=== PATIENT | male | born 1975 | race Caucasian/White ===

== ENCOUNTER 2019-03-05 20:00 | Inpatient (IN) ==
[2019-03-06] MEDS ORDERED: Naloxone 0.4 MG/ML INJ IVP PRN (00:10)
[2019-03-06] MEDS ORDERED: D5% in Water 1,000 ML IVC PRN (00:15)
[2019-03-06] MEDS ORDERED: *HR* Dextrose 50 % in Water (Syg) 50 ML SYRINGE IVP PRN (00:15)
[2019-03-06] MEDS ORDERED: Dextrose Gel 15 GM/37.5 ML TUBE PO PRN ×2 (00:15)
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
[2019-03-06 00:48] LABS: Hematocrit 46.3 % (37.5-50.1); Hemoglobin 13.6 g/dL (12.9-16.9); Mean Corpuscular HGB Conc 29.4 g/dL (31.6-35.5); Mean Corpuscular Hemoglobin 30.5 pg (28.0-33.3); Mean Corpuscular Volume 103.8 fL (83.0-100.0); Mean Platelet Volume 10.5 fL (9.4-12.4); Platelet Count 195 K/mcL (140-400); Red Blood Count 4.46 M/mcL (4.19-5.50); Red Cell Distribution Width 14.9 % (11.5-14.5); White Blood Count 10.8 K/mcL (4.3-11.1)
[2019-03-06 01:00] LABS: INR 1.2; Prothrombin Time 13.2 Seconds (9.4-12.1)
[2019-03-06 01:11] LABS: Alanine Aminotransferase 12 Units/L (7-52); Albumin 3.2 g/dL (3.5-5.7); Albumin/Globulin Ratio 1.1 (1.1-2.2); Alkaline Phosphatase 73 Units/L (34-104); Aspartate Amino Transferase 12 Units/L (13-39); BUN/Creatinine Ratio 14 (6-26); Bilirubin,Total 0.4 mg/dL (0.3-1.0); Blood Urea Nitrogen 13 mg/dL (6-20); Calcium 8.4 mg/dL (8.6-10.3); Carbon Dioxide 41 mEq/L (23-29); Chloride 93 mEq/L (98-107); Globulin 2.9 g/dL (2.4-3.5); Glucose 226 mg/dL (70-105); Magnesium 1.9 mg/dL (1.6-2.6); Osmolality,Calculated 293 (280-300); Potassium 3.7 mEq/L (3.5-5.1); Sodium 138 mEq/L (136-145); Total Protein 6.1 g/dL (6.4-8.9); eGFR For African Americans > 60 (> 60); eGFR For Non-African Americans > 60 (> 60)
[2019-03-06] MEDS: *HR* Digoxin 0.5 MG/2 ML AMPUL IVP SCH ×2 (02:52→09:13)
[2019-03-06] MEDS: Nicotine 21 MG PATCH.TD24 TD SCH (07:06)
[2019-03-06] MEDS ORDERED: Perflutren Lipid Microsphere 1.3 ML in 0.9 % Sodium Chloride 8.7 ML IVP ONE (07:16)
[2019-03-06] MEDS ORDERED: Furosemide 40 MG/4 ML VIAL IVP SCH (08:00)
[2019-03-06] MEDS ORDERED: Amiodarone Premix 150 MG/100 ML BAG IVPB ONE (08:58)
[2019-03-06] MEDS ORDERED: Amiodarone Premix 360 MG/200 ML BAG IVC ONE (08:58)
[2019-03-06] MEDS ORDERED: Insulin DETEMIR 100 UNIT/ML X5UNITS SQ SCH (09:00)
[2019-03-06] MEDS: Apixaban 5 MG TABLET PO SCH ×2 (09:17→21:40)
[2019-03-06] MEDS: Gabapentin 400 MG CAPSULE PO SCH ×4 (09:17→21:40)
[2019-03-06] MEDS: Insulin LISPRO 300 UNITS/3 ML VIAL SQ SCH ×7 (09:18→21:38)
[2019-03-06] MEDS: Loratadine 10 MG TABLET PO SCH (09:18)
[2019-03-06] MEDS: Magnesium Oxide 400 MG TABLET PO SCH ×3 (09:18→21:40)
--- NOTE | 2019-03-06 09:22 | Internal Med Progress Note ---
Hospitalist Progress Note - Encounter Date of Encounter: 03/06/19 Time of Encounter: 09:19 - Subjective Interval History: I have seen and evaluated the patient at bedside. Patient reported increase productive cough of yellowish sputum, denies chest pain, nausea, vomiting or abdominal pain. - Exam Vitals: Temp Pulse Resp BP Pulse Ox 98.5 F 132 20 91/57 91 03/06/19 07:36 03/06/19 07:36 03/06/19 07:36 03/06/19 07:36 03/06/19 07:36 Exam: Vitals: Reviewed General: Morbidly obese, Alert and oriented x4. In mild distress due to shortness of breath Cardiovascular: Irregularly, irregular, normal S1 & S2, no rubs, murmurs or gallops. Lungs: minimal expiratory wheezes at the bases b/l, and minimal crackles, no rales. Abdomen: Obese, soft, non-tender, no rigidity. Extremities: 2+ edema in the lower extr b/l Neurological: Normal cognition and motor skills. Rest of the physical exam is non contributory - Assessment and Plan (1) Atrial flutter with rapid ventricular response Current Visit: Yes Status: Acute Assessment and Plan: patient with A.fib with RvR, BP running in the low 90s. dc cardizem drip started on amiodarone drip titrate per protocol on apixaban for secondary stroke prevention, and Hx of DVT. Cardiology recommendations appreciated on metoprolol 50mg/PO Q6HRs on magnessium replacement (2) CHF exacerbation Current Visit: Yes Status: Acute Assessment and Plan: patient with 2+ pitting edema and crackles at the lung bases b/l. Plan: fluids restriction to 1.5 litters a day decrease furosemide to 40mg/IV daily as BP is running in the low 90s. on a bb. daily weight and strict intake and output. (3) Diabetes Current Visit: Yes Status: Chronic Assessment and Plan: blood sugar sub-optimally controlled. started on levemir 10 units Subq BID, and lispro 4 units ac, plus high dose lispro sliding scale ac. carbs controlled diet. (4) History of DVT in adulthood Current Visit: Yes Status: Chronic Assessment and Plan: On apixaban 5mg/PO BID (5) Hypertension Current Visit: Yes Status: Chronic Assessment and Plan: BP running in the low 90s. medications adjusted for better rate control, this should improve BP. will continue monitoring (6) Hyperlipidemia Current Visit: Yes Status: Chronic Assessment and Plan: Patient is on atorvastatin 80 mg by mouth at bedtime. (7) GERD (gastroesophageal reflux disease) Current Visit: Yes Status: Chronic Assessment and Plan: On omeprazole 20 mg by mouth. (8) Tracheostomy in place Current Visit: Yes Status: Chronic (9) COPD exacerbation Current Visit: Yes Status: Acute Assessment and Plan: Patient reported increased sputum production. and hypoxemia. Plan: started on bronchodilators Q4RT PRN for shortness of breath/wheezing spurum culture ordered started on methyl-prednisolone 40mg/IV BID, plus empiric antibiotics. will start on Augmentin, and change to a macrolides or quinolones when the HR is better controlled. ABG ordered. DVT Prophylaxis: patient on an oral anticoagulant. no mechanical dvt prophylaxis due to Hx of DVT - Summary of Assessment and Plan Summary of Assessment and Plan: Patient to remain in the hospital due to A.fib with RVR on an amiodarone drip. - Time Spent with Patient Total time spent is greater than 50% in coordination of care (as documented) at patient's floor/unit and/or counseling patient: Greater than 35 minutes (45) Plan of Care Discussed with: patient (and the nurse.) Internal Medicine: Result - Labs CBC & Chem 7: 03/06/19 00:33 03/06/19 00:33 Labs: Short CBC 03/06/19 Range/Units 00:33 WBC 10.8 (4.3-11.1) K/mcL Hgb 13.6 (12.9-16.9) g/dL Hct 46.3 (37.5-50.1) % Plt Count 195 (140-400) K/mcL BMP 03/06/19 00:33 Sodium 138 Potassium 3.7 Chloride 93 L Carbon Dioxide 41 H* BUN 13 Creatinine 0.92 Glucose 226 H Calcium 8.4 L Cardiac Enzymes 03/06/19 03/06/19 Range/Units 00:33 04:17 Troponin I < 0.03 < 0.03 (< 0.04) ng/mL Liver Function 03/06/19 Range/Units 00:33 Total Bilirubin 0.4 (0.3-1.0) mg/dL AST 12 L (13-39) Units/L ALT 12 (7-52) Units/L Alkaline Phosphatase 73 (34-104) Units/L Albumin 3.2 L (3.5-5.7) g/dL - ABG Interpretation ABG results: PT/INR, D-dimer PT 13.2 Seconds (9.4-12.1) H 03/06/19 00:33 - Impressions Impressions Chest X-Ray 03/06/19 00:13 IMPRESSION: 1. Tracheostomy tube with the tip at the level of the clavicles. 2. Enlarged cardiac silhouette with prominence of the pulmonary vasculature. 3. Minimal bilateral opacification, which may represent pulmonary edema. D/ / Willie Dickson MD / Willie Dickson MD Interpreting Provider: Willie Dickson MD Consult Discharge Plan - Plan Referrals: NONE,PCP [Primary Care Provider] - (2) CHF exacerbation Qualifiers: Heart failure type: unspecified Qualified Code(s): I50.9 - Heart failure, unspecified (3) Diabetes Qualifiers: Diabetes mellitus type: type 2 Diabetes mellitus prison insulin use: with prison use Diabetes mellitus complication status: without complication Qualified Code(s): E11.9 - Type 2 diabetes mellitus without complications; Z79.4 - group home (current) use of insulin (5) Hypertension Qualifiers: Hypertension type: essential hypertension Qualified Code(s): I10 - Essential (primary) hypertension (6) Hyperlipidemia Qualifiers: Hyperlipidemia type: unspecified Qualified Code(s): E78.5 - Hyperlipidemia, unspecified (7) GERD (gastroesophageal reflux disease) Qualifiers: Esophagitis presence: esophagitis presence not specified Qualified Code(s): K21.9 - Gastro-esophageal reflux disease without esophagitis
--- NOTE | 2019-03-06 10:11 | Cardiology Consult Note ---
Date of Encounter: 03/06/19 Time of Encounter: 10:08 Assessment and Plan (1) Atrial flutter with rapid ventricular response Current Visit: Yes Status: Acute On eliquis for stroke risk reduction, cannot tolerate rate controlling medications due to labile blood pressure. We will start amiodarone as patient is compliant on eliquis for the last few months. Patient likely would benefit from BiPAP which likely is an aggravating factor for his A. fib RVR. Patient likely also benefit from EP follow-up and if continues to be in atrial flutter preferentially possible a flutter ablation Discussion w patient/family: The assessment and plan as outlined above was discussed with the patient and/or family members who expressed understanding and agreement. All questions were answered. Thank you for involving us in the care of your patient. Please call with any questions. History of Present Illness Consult date: 03/06/19 Chief complaint: A. fib RVR History of present illness: Mr. Alexandra is a 43 year old male with morbid obesity, COPD, diabetes, rest 20 failure in the past status post-trach placement presents with complaints of hypoxemia from home. Patient has likely severe sleep apnea without a BiPAP or CPAP machine at home. This may or may not be the culprit. On presentation patient was found to be in atrial flutter with RVR. He currently is on eliquis and has been compliant with his medications over the last few months. We will start amiodarone for chemical cardioversion due to labile blood pressure with rate controlling medications. Patient otherwise asymptomatic denies any chest pain, dyspnea on exertion above baseline, orthopnea, PND, presyncope or syncope Past Med Surg Social Fam HX - Past Medical History Medical history: atrial fibrillation, CHF, COPD, DVT, diabetes, GERD, hypertension Psychiatric history: depression - Past Surgical History Surgical History: tracheostomy - Social History Smoking Status: Heavy tobacco smoker Packs per day: 1 Smokeless Tobacco Status: No Alcohol use: none Drug use: none Medications and Allergies Apixaban [Eliquis] 5 mg PO BID 03/06/19 [History] Atorvastatin [Lipitor] 80 mg PO HS 03/06/19 [History] Escitalopram [Lexapro] 03/06/19 [History] Ferrous Sulfate [Iron] 325 mg PO 03/06/19 [History] Furosemide [Lasix] 20 mg PO DAILY 03/06/19 [History] Furosemide [Lasix] 40 mg PO DAILY 03/06/19 [History] Gabapentin [Neurontin] 800 mg PO QID 03/06/19 [History] Insulin Glargine,Hum.rec.anlog [Basaglar Kwikpen U-100] 60 unit SQ 03/06/19 [History] Insulin LISPRO [HumaLOG] 15 unit SQ TIDWM 03/06/19 [History] Loratadine [Allergy Relief] 10 mg PO DAILY 03/06/19 [History] Magnesium Oxide [Magnesium] 400 mg PO TID 03/06/19 [History] Metoprolol Tartrate [Lopressor] 50 PO 03/06/19 [History] Oxycodone HCl [Oxycontin] 10 mg PO 03/06/19 [History] Pantoprazole Sodium [Protonix] 40 mg PO DAILY 03/06/19 [History] diazePAM [Valium] 5 mg PO BID 03/06/19 [History] Allergy/AdvReac Type Severity Reaction Status Date / Time morphine Allergy Anaphylaxis Verified 03/06/19 03:42 All Systems Review: The remainder of the systems were reviewed and are negative Physical Examination Vital Signs, Last 4 Hours Temp Pulse Resp BP Pulse Ox 03/06/19 07:36 98.5 F 132 20 91/57 91 General: Conversant, No Apparent Distress HEENT: Atraumatic, Normocephaly, Mucus Membranes Moist Neck: No JVD, Normal carotid pulses Cardiac: Reg Rate and Rhythm, Normal S1 and S2, No Murmur Lungs: Normal Breath Sounds, No Wheeze, Rales, Rhonchi Neuro: Alert and responsive, No focal deficits noted Abdomen: Soft, Non-Tender Skin: No rashes noted on visualized skin Musculoskeletal: No Chest Wall Tenderness Extremities: No Clubbing, No Cyanosis, No Edema, Normal Pulses Results 03/06/19 00:33 03/06/19 00:33 Lab Results 03/06/19 03/06/19 03/06/19 00:33 00:33 00:33 WBC 10.8 Hgb 13.6 Hct 46.3 Plt Count 195 INR 1.2 Sodium 138 Potassium 3.7 Chloride 93 L Carbon Dioxide 41 H* BUN 13 Creatinine 0.92 Glucose 226 H Calcium 8.4 L Magnesium 1.9 Total Bilirubin 0.4 AST 12 L ALT 12 Alkaline Phosphatase 73 Troponin I 03/06/19 03/06/19 00:33 04:17 WBC Hgb Hct Plt Count INR Sodium Potassium Chloride Carbon Dioxide BUN Creatinine Glucose Calcium Magnesium Total Bilirubin AST ALT Alkaline Phosphatase Troponin I < 0.03 < 0.03 Consult Discharge Plan - Plan Referrals: NONE,PCP [Primary Care Provider] -
[2019-03-06 10:43] LABS: ABG Base Excess 11 mEq/L (-2 to 3); ABG HCO3 44 mEq/L (21-27); ABG Oxygen Saturation 90 % (95-98); ABG PCO2 99 mmHg (35-45); ABG PH 7.26 pH Units (7.32-7.45); ABG PO2 73 mmHg (85-104); ABG TCO2 47 mEq/L (20-26)
--- NOTE | 2019-03-06 11:18 | Pulmonology Consult Note ---
Date of Encounter: 03/06/19 Time of Encounter: 11:00 Assessment and Plan (1) Acute and chronic respiratory failure ([id number]) Current Visit: Yes Status: Acute Patient has tracheostomy and his shortness of breath is multifactorial I suspect primarily now from congestive heart failure with his chest x-ray evidence of pulmonary congestion, however he is history of smoking and COPD is complicating the whole condition. I have reviewed his ABG with evidence of primarily chronic respiratory failure with acidosis and he is not using ventilator and his hypoxia is worsen. I have explained to patient at least when he sleep he needs to be on a ventilator. Ideally obstructive sleep apnea gets treated with tracheostomy however with his obesity hypoventilation and congestive heart failure is not helping and intermittent ventilator during daytime and when he sleep is recommended. I have explained to the nurse and the respiratory therapist once patient agrees then his tracheostomy needs to be changed to a cuffed tracheostomy. Qualifiers: Respiratory failure complication: hypoxia and hypercapnia Qualified Code(s): J96.21 - Acute and chronic respiratory failure with hypoxia; J96.22 - Acute and chronic respiratory failure with hypercapnia (2) Tracheostomy dependent Current Visit: Yes Status: Chronic Advice patient when his discharge from the hospital to follow up with his physician who placed his trach and this has not been replaced for past 2 years according to the patient. (3) Obesity hypoventilation syndrome Current Visit: Yes Status: Chronic Ventilator will be helpful. (4) History of smoking Current Visit: Yes Status: Chronic Patient understand that smoking will make his condition worsen. (5) COPD exacerbation Current Visit: Yes Status: Suspected Patient is being treated appropriately with bronchodilators and systemic steroid with empiric antibiotic. History of Present Illness Consult date: 03/06/19 Requesting physician: Genny Maddox Reason for consult: dyspnea Chief complaint: Shortness of breath History of present illness: This is a 43-year-old male with multiple medical problems and he has chronic trach which has been placed about 2 years ago and he stated that has not been replaced since that time. Patient is not using vent at home and he is only on oxygen. His family stated that he was hypoxic on oxygen and that is why he was brought to the hospital and then admitted for A. fib RVR and congestive heart failure. Patient has history of COPD and history of smoking with history of congestive heart failure. Patient stated that he has not seen a plant maintenance technician and he does not know what specialty is the physician who placed his trach in. Patient denies any significant increase in the secretion from his trach and he does change saner cannula. Patient stated he noticed that he is more swollen with distended abdomen and also lower extremities edema. Patient overall stated he is compliant with his medication. Denies any hemoptysis and denies any significant wheezing. Past Med Surg Social Fam HX - Past Medical History Medical history: atrial fibrillation, CHF, COPD, DVT, diabetes, GERD, hypertension Psychiatric history: depression - Past Surgical History Surgical History: tracheostomy - Social History Smoking Status: Heavy tobacco smoker Packs per day: 1 Smokeless Tobacco Status: No Alcohol use: none Drug use: none Medications and Allergies Apixaban [Eliquis] 5 mg PO BID 03/06/19 [History] Atorvastatin Calcium [Lipitor] 80 mg PO HS 03/06/19 [History] Escitalopram [Lexapro] 10 mg PO DAILY 03/06/19 [History] Ferrous Sulfate [Iron] 325 mg PO BID 03/06/19 [History] Furosemide [Lasix] 20 mg PO DAILY PRN 03/06/19 [History] Furosemide [Lasix] 40 mg PO DAILY 03/06/19 [History] Gabapentin [Neurontin] 800 mg PO QID 03/06/19 [History] Insulin Glargine,Hum.rec.anlog [Basaglar Kwikpen U-100] 60 unit SQ HS 03/06/19 [History] Insulin LISPRO [HumaLOG] 15 unit SQ TIDWM 03/06/19 [History] Loratadine [Allergy Relief] 10 mg PO DAILY 03/06/19 [History] Magnesium Oxide [Magnesium] 400 mg PO TID 03/06/19 [History] Metoprolol Tartrate [Lopressor] 50 mg PO Q6H 03/06/19 [History] OxyCODONE Immed Rel [Roxicodone 10 MG] 10 mg PO BID PRN 03/06/19 [History] Pantoprazole Sodium [Protonix] 40 mg PO DAILY 03/06/19 [History] diazePAM [Valium] 5 mg PO BID PRN 03/06/19 [History] Allergy/AdvReac Type Severity Reaction Status Date / Time morphine Allergy Anaphylaxis Verified 03/06/19 10:09 All Systems: The remainder of the systems were reviewed and are negative Physical Examination Vital Signs: Vital Signs, Last 4 Hours Temp Pulse Resp BP Pulse Ox 03/06/19 07:36 98.5 F 132 20 91/57 91 General appearance: no acute distress Eyes: nonicteric ENT: oropharynx dry Neck: other (Trach in place) Effort: mildly labored Inspection: other (Obese) Auscultation: bilateral: diminished breath sounds Percussion: bilateral: not dull Cardiovascular: irregular rhythm Gastrointestinal: normoactive bowel sounds, non-distended Extremities: edema normal mental status, non-focal exam mood appropriate Results - Laboratory Findings CBC and BMP: 03/06/19 00:33 03/06/19 00:33 ABG ABG pH 7.26 pH Units (7.32-7.45) L 03/06/19 10:38 ABG pCO2 99 mmHg (35-45) H* 03/06/19 10:38 ABG pO2 73 mmHg (85-104) L 03/06/19 10:38 ABG O2 Saturation 90 % (95-98) L 03/06/19 10:38 PT/INR, D-dimer PT 13.2 Seconds (9.4-12.1) H 03/06/19 00:33 Abnormal lab findings: Abnormal lab results MCV 103.8 fL (83.0-100.0) H 03/06/19 00:33 MCHC 29.4 g/dL (31.6-35.5) L 03/06/19 00:33 RDW 14.9 % (11.5-14.5) H 03/06/19 00:33 PT 13.2 Seconds (9.4-12.1) H 03/06/19 00:33 ABG pH 7.26 pH Units (7.32-7.45) L 03/06/19 10:38 ABG pCO2 99 mmHg (35-45) H* 03/06/19 10:38 ABG pO2 73 mmHg (85-104) L 03/06/19 10:38 ABG HCO3 44 mEq/L (21-27) H 03/06/19 10:38 ABG Total CO2 47 mEq/L (20-26) H 03/06/19 10:38 ABG O2 Saturation 90 % (95-98) L 03/06/19 10:38 ABG Base Excess 11 mEq/L (-2 to 3) H 03/06/19 10:38 Chloride 93 mEq/L (98-107) L 03/06/19 00:33 Carbon Dioxide 41 mEq/L (23-29) H* 03/06/19 00:33 Glucose 226 mg/dL (70-105) H 03/06/19 00:33 POC Glucose 267 mg/dL (70-99) H 03/06/19 04:14 Calcium 8.4 mg/dL (8.6-10.3) L 03/06/19 00:33 AST 12 Units/L (13-39) L 03/06/19 00:33 Serum Total Protein 6.1 g/dL (6.4-8.9) L 03/06/19 00:33 Albumin 3.2 g/dL (3.5-5.7) L 03/06/19 00:33 - Diagnostic Findings CT scan - chest: report reviewed, image reviewed - Clinical Findings Intake & Output: Intake & Output 03/05/19 03/06/19 03/06/19 23:59 07:59 15:59 Intake Total 360 / 360 Balance 360 / 360 Weight 181.437 kg Consult Discharge Plan - Plan Referrals: NONE,PCP [Primary Care Provider] -
[2019-03-06 11:21] LABS: Estimated Average Glucose 240 mg/dl
[2019-03-06] MEDS: MethylPREDNISolone 40 MG/ML VIAL IVP SCH ×2 (11:23→18:02)
[2019-03-06] MEDS: Furosemide 40 MG/4 ML VIAL IVP SCH (11:23)
[2019-03-06] MEDS: diazePAM 5 MG TABLET PO SCH ×2 (11:24→21:40)
[2019-03-06] MEDS: *HR* OxyCODONE Immed Rel 5 MG TABLET PO PRN ×2 (14:33→21:42)
[2019-03-06] MEDS: Amiodarone Premix 360 MG/200 ML BAG IVC SCH (16:17)
[2019-03-06] MEDS ORDERED: NON-FORMULARY MEDICATION 1 EACH EACH (Insulin Glargine,Hum.Rec.Anlog [Basaglar Kwikpen U-1 SQ SCH (21:00)
[2019-03-06] MEDS: Insulin DETEMIR 100 UNIT/ML X5UNITS SQ SCH (21:40)
[2019-03-07] MEDS: Amiodarone Premix 360 MG/200 ML BAG IVC SCH ×2 (04:31→16:32)
[2019-03-07] MEDS: Levalbuterol Neb 0.63 MG/3 ML IH PRN (04:55)
[2019-03-07] MEDS: MethylPREDNISolone 40 MG/ML VIAL IVP SCH (06:39)
[2019-03-07] MEDS: Insulin LISPRO 300 UNITS/3 ML VIAL SQ SCH ×7 (07:55→21:09)
[2019-03-07] MEDS: Magnesium Oxide 400 MG TABLET PO SCH ×3 (07:58→21:13)
[2019-03-07] MEDS: Loratadine 10 MG TABLET PO SCH (07:58)
[2019-03-07] MEDS: Apixaban 5 MG TABLET PO SCH ×2 (07:58→21:08)
[2019-03-07] MEDS: diazePAM 5 MG TABLET PO SCH ×2 (07:58→21:14)
[2019-03-07] MEDS: Gabapentin 400 MG CAPSULE PO SCH ×4 (07:58→21:13)
[2019-03-07] MEDS: Nicotine 21 MG PATCH.TD24 TD SCH (07:59)
[2019-03-07 08:00] LABS: Basophils % 0.1 %; Lymphocytes % 6.8 %
[2019-03-07 08:02] LABS: Hematocrit 46.3 % (37.5-50.1); Hemoglobin 13.3 g/dL (12.9-16.9); Immature Granulocytes % 0.5 % (0-4); Lymphocytes # 0.6 K/mcL (0.6-4.6); Mean Corpuscular HGB Conc 28.7 g/dL (31.6-35.5); Mean Corpuscular Hemoglobin 30.7 pg (28.0-33.3); Mean Corpuscular Volume 106.9 fL (83.0-100.0); Mean Platelet Volume 10.7 fL (9.4-12.4); Monocytes # 0.4 K/mcL (0.0-1.3); Monocytes % 4.7 %; Neutrophils # 8.2 K/mcL (1.6-8.9); Platelet Count 194 K/mcL (140-400); Red Blood Count 4.33 M/mcL (4.19-5.50); Red Cell Distribution Width 14.1 % (11.5-14.5); Segmented Neutrophils % 87.9 %; White Blood Count 9.3 K/mcL (4.3-11.1)
[2019-03-07] MEDS: Insulin DETEMIR 100 UNIT/ML X5UNITS SQ SCH (08:03)
[2019-03-07] MEDS: *HR* OxyCODONE Immed Rel 5 MG TABLET PO PRN (08:03)
[2019-03-07 08:04] LABS: Hypochromasia Present (Not Present); Platelet Estimate Normal (Normal)
[2019-03-07] MEDS: Furosemide 40 MG/4 ML VIAL IVP SCH (08:08)
[2019-03-07 08:24] LABS: BUN/Creatinine Ratio 19 (6-26); Blood Urea Nitrogen 23 mg/dL (6-20); Calcium 8.4 mg/dL (8.6-10.3); Carbon Dioxide 43 mEq/L (23-29); Chloride 90 mEq/L (98-107); Glucose 441 mg/dL (70-105); Magnesium 2.4 mg/dL (1.6-2.6); Osmolality,Calculated 307 (280-300); Phosphorous 3.7 mg/dL (2.7-4.5); Potassium 5.3 mEq/L (3.5-5.1); Sodium 137 mEq/L (136-145); eGFR For African Americans > 60 (> 60); eGFR For Non-African Americans > 60 (> 60)
--- NOTE | 2019-03-07 08:42 | Pulmonology Progress Note ---
Date of Encounter: 03/07/19 Time of Encounter: 08:00 Assessment and Plan (1) Acute and chronic respiratory failure ([id number]) Current Visit: Yes Status: Acute Patient tolerated mainly CPAP on the vent when she is helpful and needs social studies department chair will to arrange a ventilator that can be connected with his trach and it will be helpful for him to use it at night. I have explained this to the patient and he agrees to use it if he has at home. As far as the setting, an ABG can be done on the comfortable mode for him and make the necessary changes. Please call for any questions. Qualifiers: Respiratory failure complication: hypoxia and hypercapnia Qualified Code(s): J96.21 - Acute and chronic respiratory failure with hypoxia; J96.22 - Acute and chronic respiratory failure with hypercapnia (2) Tracheostomy dependent Current Visit: Yes Status: Chronic He will need outpatient follow-up with ENT who placed the trach. (3) Obesity hypoventilation syndrome Current Visit: Yes Status: Chronic Again I believe he will need the vent support mainly at night when he sleep and most importantly weight loss would be significant for him and even bariatric surgery and benefits recommended in his case. (4) History of smoking Current Visit: Yes Status: Chronic (5) COPD exacerbation Current Visit: Yes Status: Suspected Subjective Principal diagnosis: Dyspnea Interval history: Patient tolerated ventilator last night and he is feeling better with diuresis and breathing has improved according to him. Objective PUL Vital signs: Last Vital Signs Temp 98.7 F 03/07/19 07:33 Pulse 120 03/07/19 08:13 Resp 18 03/07/19 07:33 BP 104/70 03/07/19 07:33 Pulse Ox 95 03/07/19 07:33 General appearance: no acute distress Eyes: nonicteric ENT: oropharynx moist, other (Trach in place) Effort: normal Auscultation: bilateral: diminished breath sounds Tactile fremitus: bilateral: normal Cardiovascular: irregular rhythm Gastrointestinal: normoactive bowel sounds, non-distended Extremities: edema normal mental status, non-focal exam mood appropriate Ventilator Settings Ventilator Settings: Ventilator Settings, Last 8 Hours Actual Respiratory Rate 16 Actual Respiratory Rate 16 Positive End Expiratory 5 Pressure Positive End Expiratory 5 Pressure Peak Inspiratory Airway 16 Pressure Peak Inspiratory Airway 16 Pressure Results - Laboratory Findings CBC and BMP: 03/07/19 07:38 03/07/19 07:38 ABG ABG pH 7.26 pH Units (7.32-7.45) L 03/06/19 10:38 ABG pCO2 99 mmHg (35-45) H* 03/06/19 10:38 ABG pO2 73 mmHg (85-104) L 03/06/19 10:38 ABG O2 Saturation 90 % (95-98) L 03/06/19 10:38 PT/INR, D-dimer PT 13.2 Seconds (9.4-12.1) H 03/06/19 00:33 Abnormal lab findings: Abnormal lab results MCV 106.9 fL (83.0-100.0) H 03/07/19 07:38 MCHC 28.7 g/dL (31.6-35.5) L 03/07/19 07:38 RDW 14.9 % (11.5-14.5) H 03/06/19 00:33 Hypochromasia Present (Not Present) A 03/07/19 07:38 PT 13.2 Seconds (9.4-12.1) H 03/06/19 00:33 ABG pH 7.26 pH Units (7.32-7.45) L 03/06/19 10:38 ABG pCO2 99 mmHg (35-45) H* 03/06/19 10:38 ABG pO2 73 mmHg (85-104) L 03/06/19 10:38 ABG HCO3 44 mEq/L (21-27) H 03/06/19 10:38 ABG Total CO2 47 mEq/L (20-26) H 03/06/19 10:38 ABG O2 Saturation 90 % (95-98) L 03/06/19 10:38 ABG Base Excess 11 mEq/L (-2 to 3) H 03/06/19 10:38 Potassium 5.3 mEq/L (3.5-5.1) H 03/07/19 07:38 Chloride 90 mEq/L (98-107) L 03/07/19 07:38 Carbon Dioxide 43 mEq/L (23-29) H* 03/07/19 07:38 BUN 23 mg/dL (6-20) H 03/07/19 07:38 Glucose 441 mg/dL (70-105) H 03/07/19 07:38 POC Glucose 377 mg/dL (70-99) H 03/06/19 21:20 Hemoglobin A1c 10.0 % (-5.6) H 03/06/19 00:33 Calculated Osmolality 307 (280-300) H 03/07/19 07:38 Calcium 8.4 mg/dL (8.6-10.3) L 03/07/19 07:38 AST 12 Units/L (13-39) L 03/06/19 00:33 Serum Total Protein 6.1 g/dL (6.4-8.9) L 03/06/19 00:33 Albumin 3.2 g/dL (3.5-5.7) L 03/06/19 00:33 - Clinical Findings Intake & Output: Intake & Output 03/06/19 03/07/19 03/07/19 23:59 07:59 15:59 Intake Total 540 / 1140 680 / 680 Output Total 1225 / 1225 600 / 600 Balance -685 / -85 80 / 80 Consult Discharge Plan - Plan Referrals: NONE,PCP [Primary Care Provider] -
--- NOTE | 2019-03-07 11:33 | Internal Med Progress Note ---
Hospitalist Progress Note - Encounter Date of Encounter: 03/07/19 Time of Encounter: 11:31 - Subjective Interval History: I have seen and evaluated the patient at bedside. Patient reported improvement on his breathing. denies chest pain, nausea or vomiting. lightheadedness or dizziness. - Exam Vitals: Temp Pulse Resp BP Pulse Ox 98.7 F 120 18 104/70 95 03/07/19 07:33 03/07/19 08:13 03/07/19 07:33 03/07/19 07:33 03/07/19 07:33 Exam: Vitals: Reviewed General: Morbidly obese, Alert and oriented x4. No distress Cardiovascular: Irregularly, irregular, normal S1 & S2, no rubs, murmurs or gallops. Lungs: No wheezing, minimal crackles at the base b/l, no rales. Abdomen: Obese, soft, non-tender, no rigidity. NABS in all 4 quadrants Extremities: 2+ edema in the lower extr b/l Neurological: No focal neurological abnormalities. Rest of the physical exam is non contributory - Assessment and Plan (1) Acute and chronic respiratory failure ([id number]) Current Visit: Yes Status: Acute Assessment and Plan: continue CPAP. Pulmonology recommendations appreciated (2) Atrial flutter with rapid ventricular response Current Visit: Yes Status: Acute Assessment and Plan: HR sub-optimally controlled. continue amiodarone drip per protocol. on apixaban for secondary stroke prevention, and Hx of DVT. Cardiology recommendations appreciated on metoprolol 50mg/PO Q6HRs Digoxin use, per cardiology discretion (3) CHF exacerbation Current Visit: Yes Status: Acute Assessment and Plan: patient with crackles at the base b/l. continue fluids restrictive strategies to 1.5 litters a day. c/w furosemide 40mg/IV daily. (4) Diabetes Current Visit: Yes Status: Chronic Assessment and Plan: blood sugar sub-optimally controlled. levemir increased to 25 units BID, and lispro increased to 8 units ac. continue lispro high dose sliding scale ac. (5) History of DVT in adulthood Current Visit: Yes Status: Chronic Assessment and Plan: On apixaban 5mg/PO BID (6) Hypertension Current Visit: Yes Status: Chronic Assessment and Plan: BP within normal range. continue current anti-hypertensive medications (7) Hyperlipidemia Current Visit: Yes Status: Chronic Assessment and Plan: C/W atorvastatin 80 mg by mouth at bedtime. (8) GERD (gastroesophageal reflux disease) Current Visit: Yes Status: Chronic Assessment and Plan: On omeprazole 20 mg by mouth. (9) Tracheostomy in place Current Visit: Yes Status: Chronic Assessment and Plan: Pulmonology recommended outpatient f/u with the ENT who placed the trach. (10) COPD exacerbation Current Visit: Yes Status: Suspected Assessment and Plan: Plan: c/w bronchodilators Q4RT PRN DC IV steroids started on a short course of oral steroids. Prednisone 30mg/PO daily On Augmentin, (11) Hyperkalemia Current Visit: Yes Status: Acute Assessment and Plan: kayexalete ordered. will repeat BMP at 5pm (12) History of smoking Current Visit: Yes Status: Chronic (13) Obesity hypoventilation syndrome Current Visit: Yes Status: Chronic DVT Prophylaxis: Patient on an oral anticoagulant due to Hx of DVT. - Summary of Assessment and Plan Summary of Assessment and Plan: patient to remain in the hospital due to A.fib with rvr on an amiodarone drip. - Time Spent with Patient Total time spent is greater than 50% in coordination of care (as documented) at patient's floor/unit and/or counseling patient: Greater than 35 minutes (40) Plan of Care Discussed with: patient (and the nurse.) Internal Medicine: Result - Labs CBC & Chem 7: 03/07/19 07:38 03/07/19 07:38 Labs: Short CBC 03/07/19 Range/Units 07:38 WBC 9.3 (4.3-11.1) K/mcL Hgb 13.3 (12.9-16.9) g/dL Hct 46.3 (37.5-50.1) % Plt Count 194 (140-400) K/mcL Neutrophils # 8.2 (1.6-8.9) K/mcL BMP 03/07/19 07:38 Sodium 137 Potassium 5.3 H Chloride 90 L Carbon Dioxide 43 H* BUN 23 H Creatinine 1.21 Glucose 441 H Calcium 8.4 L - ABG Interpretation ABG results: ABG ABG pH 7.26 pH Units (7.32-7.45) L 03/06/19 10:38 ABG pCO2 99 mmHg (35-45) H* 03/06/19 10:38 ABG pO2 73 mmHg (85-104) L 03/06/19 10:38 ABG O2 Saturation 90 % (95-98) L 03/06/19 10:38 PT/INR, D-dimer PT 13.2 Seconds (9.4-12.1) H 03/06/19 00:33 Consult Discharge Plan - Plan Referrals: NONE,PCP [Primary Care Provider] - (1) Acute and chronic respiratory failure ([id number]) Qualifiers: Respiratory failure complication: hypoxia and hypercapnia Qualified Code(s): J96.21 - Acute and chronic respiratory failure with hypoxia; J96.22 - Acute and chronic respiratory failure with hypercapnia (3) CHF exacerbation Qualifiers: Heart failure type: unspecified Qualified Code(s): I50.9 - Heart failure, unspecified (4) Diabetes Qualifiers: Diabetes mellitus type: type 2 Diabetes mellitus moth exterminator insulin use: with nursing home use Diabetes mellitus complication status: without complication Qualified Code(s): E11.9 - Type 2 diabetes mellitus without complications; Z79.4 - termite treater helper (current) use of insulin (6) Hypertension Qualifiers: Hypertension type: essential hypertension Qualified Code(s): I10 - Essential (primary) hypertension (7) Hyperlipidemia Qualifiers: Hyperlipidemia type: unspecified Qualified Code(s): E78.5 - Hyperlipidemia, unspecified (8) GERD (gastroesophageal reflux disease) Qualifiers: Esophagitis presence: esophagitis presence not specified Qualified Code(s): K21.9 - Gastro-esophageal reflux disease without esophagitis
--- NOTE | 2019-03-07 11:39 | Cardiology Progress Note ---
Date of Encounter: 03/07/19 Time of Encounter: 09:30 Assessment and Plan (1) Atrial flutter with rapid ventricular response Current Visit: Yes Status: Acute Atrial flutter with RVR. Patient has a history of atrial flutter and now requests. History of cardioversion one year ago. Recent poor cardiology follow-up due to transportation issues. Patient presents in respiratory distress and hypoxia due to oxygen problems at home. Needs CPAP set up. He is currently on amiodarone drip with improvement in heart rate although continues to be tachycardic. Will keep nothing by mouth after midnight for possible ROSHAN/cardioversion if needed. Heart rates currently 90-120. Continue eliquis. -Echocardiogram was not interpretable and is recommended to be repeated once heart rate is well controlled. No prior testing here. TSH ordered. Discussion w patient/family: The assessment and plan as outlined above was discussed with the patient and/or family members who expressed understanding and agreement. All questions were answered. Thank you for involving us in the care of your patient. Please call with any questions. Subjective Principal diagnosis: Atrial flutter Interval history: Patient sitting in chair. Continues to have shortness of breath but improved. Heart rate remains elevated. He denies chest pain. Objective Vital Signs, Last 4 Hours Pulse 03/07/19 08:13 120 General: Conversant, No Apparent Distress, Other (Morbidly obese male) HEENT: Atraumatic, Normocephaly, Mucus Membranes Moist Neck: No JVD, Normal carotid pulses Cardiac: Other (Irregularly irregular with heart rate 96-120) Lungs: Other (Trach in place and connected to oxygen. Patient is breathing easy currently. Rhonchi scattered throughout posterior) Neuro: Alert and responsive, No focal deficits noted Abdomen: Soft, Non-Tender Skin: No rashes noted on visualized skin Musculoskeletal: No Chest Wall Tenderness Extremities: No Clubbing, No Cyanosis, Normal Pulses, Other (Bilateral lower extremity skin heart and did not red with 2+ pitting edema) Results 03/07/19 07:38 03/07/19 07:38 Lab Results 03/07/19 03/07/19 07:38 07:38 WBC 9.3 Hgb 13.3 Hct 46.3 Plt Count 194 Sodium 137 Potassium 5.3 H Chloride 90 L Carbon Dioxide 43 H* BUN 23 H Creatinine 1.21 Glucose 441 H Calcium 8.4 L Magnesium 2.4 - Imaging and Cardiology Echo: report reviewed - EKG Interpretation EKG results cardiology: personally reviewed Consult Discharge Plan - Plan Referrals: NONE,PCP [Primary Care Provider] -
[2019-03-07 17:45] LABS: BUN/Creatinine Ratio 21 (6-26); Blood Urea Nitrogen 26 mg/dL (6-20); Calcium 8.8 mg/dL (8.6-10.3); Carbon Dioxide 43 mEq/L (23-29); Chloride 90 mEq/L (98-107); Glucose 417 mg/dL (70-105); Osmolality,Calculated 308 (280-300); Potassium 5.4 mEq/L (3.5-5.1); Sodium 138 mEq/L (136-145); eGFR For African Americans > 60 (> 60); eGFR For Non-African Americans > 60 (> 60)
[2019-03-07 20:07] LABS: BUN/Creatinine Ratio 20 (6-26); Blood Urea Nitrogen 26 mg/dL (6-20); Calcium 8.7 mg/dL (8.6-10.3); Carbon Dioxide 42 mEq/L (23-29); Chloride 90 mEq/L (98-107); Glucose 432 mg/dL (70-105); Magnesium 2.5 mg/dL (1.6-2.6); Osmolality,Calculated 307 (280-300); Potassium 5.4 mEq/L (3.5-5.1); Sodium 137 mEq/L (136-145); eGFR For African Americans > 60 (> 60); eGFR For Non-African Americans > 60 (> 60)
[2019-03-07] MEDS ORDERED: Insulin DETEMIR 100 UNIT/ML X5UNITS SQ SCH (21:00)
[2019-03-07] MEDS: 0.9 % Sodium Chloride 1,000 ML IVC SCH (21:03)
[2019-03-08 01:11] LABS: BUN/Creatinine Ratio 23 (6-26); Blood Urea Nitrogen 26 mg/dL (6-20); Calcium 8.4 mg/dL (8.6-10.3); Carbon Dioxide 40 mEq/L (23-29); Chloride 91 mEq/L (98-107); Glucose 453 mg/dL (70-105); Magnesium 2.6 mg/dL (1.6-2.6); Osmolality,Calculated 306 (280-300); Potassium 5.5 mEq/L (3.5-5.1); Sodium 136 mEq/L (136-145); eGFR For African Americans > 60 (> 60); eGFR For Non-African Americans > 60 (> 60)
[2019-03-08] MEDS: Amiodarone Premix 360 MG/200 ML BAG IVC SCH (05:06)
[2019-03-08 06:24] LABS: BUN/Creatinine Ratio 28 (6-26); Blood Urea Nitrogen 28 mg/dL (6-20); Calcium 8.5 mg/dL (8.6-10.3); Carbon Dioxide > 45 mEq/L (23-29); Chloride 93 mEq/L (98-107); Glucose 371 mg/dL (70-105); Magnesium 2.5 mg/dL (1.6-2.6); Osmolality,Calculated 307 (280-300); Phosphorous 2.8 mg/dL (2.7-4.5); Potassium 5.5 mEq/L (3.5-5.1); Sodium 138 mEq/L (136-145); eGFR For African Americans > 60 (> 60); eGFR For Non-African Americans > 60 (> 60)
[2019-03-08] MEDS ORDERED: Furosemide 20 MG/2 ML VIAL IVP SCH (08:00)
[2019-03-08] MEDS: Loratadine 10 MG TABLET PO SCH (08:59)
[2019-03-08] MEDS: Apixaban 5 MG TABLET PO SCH ×2 (08:59→20:18)
[2019-03-08] MEDS: diazePAM 5 MG TABLET PO SCH ×2 (08:59→20:18)
[2019-03-08] MEDS: Nicotine 21 MG PATCH.TD24 TD SCH (09:00)
[2019-03-08] MEDS: Magnesium Oxide 400 MG TABLET PO SCH ×3 (09:00→20:19)
[2019-03-08] MEDS: Gabapentin 400 MG CAPSULE PO SCH ×4 (09:00→22:04)
[2019-03-08] MEDS: Insulin LISPRO 300 UNITS/3 ML VIAL SQ SCH ×7 (09:08→20:26)
[2019-03-08] MEDS: Insulin DETEMIR 100 UNIT/ML X5UNITS SQ SCH ×2 (09:11→20:27)
[2019-03-08] MEDS: predniSONE 10 MG TABLET PO SCH (09:12)
--- NOTE | 2019-03-08 11:12 | Event Note ---
Date of Encounter: 03/08/19 Time of Encounter: 09:30 - Cardiology Event Note Patient remains in atrial flutter with RVR. On amiodarone gtt and lopressor. Unable to titrate medications further. DCCV recommended today. Patiet denies missed doses of eliquis for the past three months. No need for ROSHAN. Indication, risk, benefit, and alternative discussed. Patient agrees to proceed.
[2019-03-08] MEDS ORDERED: Insulin LISPRO 300 UNITS/3 ML VIAL SQ ONE (11:59)
[2019-03-08] MEDS: Levalbuterol Neb 0.63 MG/3 ML IH PRN (12:07)
[2019-03-08 12:20] LABS: ABG Base Excess 12 mEq/L (-2 to 3); ABG HCO3 46 mEq/L (21-27); ABG Oxygen Saturation 92 % (95-98); ABG PCO2 115 mmHg (35-45); ABG PH 7.21 pH Units (7.32-7.45); ABG PO2 83 mmHg (85-104); ABG TCO2 50 mEq/L (20-26)
--- NOTE | 2019-03-08 12:55 | Internal Med Progress Note ---
Hospitalist Progress Note - Encounter Date of Encounter: 03/08/19 Time of Encounter: 12:53 - Subjective Interval History: I have seen and evaluated the patient at bedside. patient slightly more somnolent today when compared with my evaluation yesterday. as per patient at bedside, patient is always hard to be awaken. - Exam Vitals: Temp Pulse Resp BP Pulse Ox 98.9 F 122 15 95/59 94 03/08/19 03:48 03/08/19 12:15 03/08/19 12:15 03/08/19 12:15 03/08/19 12:15 Exam: Vitals: Reviewed General: Morbidly obese, Alert and oriented x3. slightly more somnolent today Cardiovascular: Irregularly, irregular, normal S1 & S2, no rubs, murmurs or gallops. Lungs: No wheezing, minimal crackles at the base b/l, no rales. Abdomen: Obese, soft, non-tender, no rigidity. NABS in all 4 quadrants Extremities: 2+ edema in the lower extr b/l Neurological: No focal neurological abnormalities. Rest of the physical exam is non contributory - Assessment and Plan (1) Acute and chronic respiratory failure ([id number]) Current Visit: Yes Status: Acute Assessment and Plan: patient with hypercapnic respiratory failure. today more somnolent and lethargic. ABG ordered pulmonology informed about patient clinical status, recommendations appreciated continue CPAP on bronchodilators and empiric oral antibiotics. ENT consulted, called (2) Atrial flutter with rapid ventricular response Current Visit: Yes Status: Acute Assessment and Plan: HR sub-optimally controlled. patient is on amiodarone drip. amd metoprolol. unable to titrate bb up due to BP running in the low 100s. on apixaban. scheduled for possible cardioversion today. cardiology recommendations appreciated. (3) CHF exacerbation Current Visit: Yes Status: Acute Assessment and Plan: CTA b/l, Plan - c/w fluids restrictive strategies to 1.5 litters a day. - decrease furosemide to 20mg/IV daily as BP is running in the low 100s SBP. (4) Diabetes Current Visit: Yes Status: Chronic Assessment and Plan: blood sugar sub-optimally controlled. levemir increase to 35 units BID, and lispro increased to 10 units ac. carbs controlled diet. (5) History of DVT in adulthood Current Visit: Yes Status: Chronic Assessment and Plan: c/w apixaban 5mg/PO BID (6) Hypertension Current Visit: Yes Status: Chronic Assessment and Plan: BP running on a the low 100s SBP. will continue to monitor. patient was started on IV fluids overnight. will discontinue IV fluids. patient with CHF. furosemide decreased. (7) Hyperlipidemia Current Visit: Yes Status: Chronic Assessment and Plan: On atorvastatin 80 mg by mouth at bedtime. (8) GERD (gastroesophageal reflux disease) Current Visit: Yes Status: Chronic Assessment and Plan: On omeprazole 20 mg by mouth. (9) Tracheostomy in place Current Visit: Yes Status: Chronic (10) COPD exacerbation Current Visit: Yes Status: Suspected Assessment and Plan: plan of care as per problem#1 (11) Hyperkalemia Current Visit: Yes Status: Acute Assessment and Plan: kayexalate 30gm/PO once ordered. 8 units of lispro ordered. will re-check BMP at 4pm. (12) History of smoking Current Visit: Yes Status: Chronic (13) Obesity hypoventilation syndrome Current Visit: Yes Status: Chronic DVT Prophylaxis: patient on an oral anticoagulant - Summary of Assessment and Plan Summary of Assessment and Plan: patient to remain in the hospital due to a.fiub with rvr on an amiodarone drip. scheduled for cardiversion - Time Spent with Patient Total time spent is greater than 50% in coordination of care (as documented) at patient's floor/unit and/or counseling patient: Greater than 35 minutes (45) Plan of Care Discussed with: patient (his and the nurse.) Internal Medicine: Result - Labs CBC & Chem 7: 03/07/19 07:38 03/08/19 14:01 Labs: BMP 03/07/19 03/07/19 03/08/19 17:00 19:25 00:25 Sodium 138 137 136 Potassium 5.4 H 5.4 H 5.5 H Chloride 90 L 90 L 91 L Carbon Dioxide 43 H* 42 H* 40 H* BUN 26 H 26 H 26 H Creatinine 1.25 1.28 1.11 Glucose 417 H 432 H 453 H Calcium 8.8 8.7 8.4 L 03/08/19 05:40 Sodium 138 Potassium 5.5 H Chloride 93 L Carbon Dioxide > 45 H* BUN 28 H Creatinine 1.00 Glucose 371 H Calcium 8.5 L - ABG Interpretation ABG results: ABG ABG pH 7.21 pH Units (7.32-7.45) L 03/08/19 12:12 ABG pCO2 115 mmHg (35-45) H* 03/08/19 12:12 ABG pO2 83 mmHg (85-104) L 03/08/19 12:12 ABG O2 Saturation 92 % (95-98) L 03/08/19 12:12 PT/INR, D-dimer PT 13.2 Seconds (9.4-12.1) H 03/06/19 00:33 Consult Discharge Plan - Plan Referrals: NONE,PCP [Primary Care Provider] - (1) Acute and chronic respiratory failure ([id number]) Qualifiers: Respiratory failure complication: hypoxia and hypercapnia Qualified Code(s): J96.21 - Acute and chronic respiratory failure with hypoxia; J96.22 - Acute and chronic respiratory failure with hypercapnia (3) CHF exacerbation Qualifiers: Heart failure type: unspecified Qualified Code(s): I50.9 - Heart failure, un specified (4) Diabetes Qualifiers: Diabetes mellitus type: type 2 Diabetes mellitus assisted insulin use: with manager intermediate use Diabetes mellitus complication status: without complication Qualified Code(s): E11.9 - Type 2 diabetes mellitus without complications; Z79.4 - long-term (current) use of insulin (6) Hypertension Qualifiers: Hypertension type: essential hypertension Qualified Code(s): I10 - Essential (primary) hypertension (7) Hyperlipidemia Qualifiers: Hyperlipidemia type: unspecified Qualified Code(s): E78.5 - Hyperlipidemia, unspecified (8) GERD (gastroesophageal reflux disease) Qualifiers: Esophagitis presence: esophagitis presence not specified Qualified Code(s): K21.9 - Gastro-esophageal reflux disease without esophagitis
--- NOTE | 2019-03-08 13:51 | Cardiology Progress Note ---
Date of Encounter: 03/08/19 Time of Encounter: 13:50 Assessment and Plan (1) Atrial flutter with rapid ventricular response Current Visit: Yes Status: Acute Atrial flutter with RVR. Patient has a history of atrial flutter and on eliquis. History of cardioversion one year ago. Recent poor cardiology follow- up due to transportation issues. Patient presents in respiratory distress and hypoxia due to oxygen problems at home. Needs CPAP set up. He is currently on amiodarone drip HR still 90-130 bpm. DCCV ordered but cancelled due to hyperkalemia and worsening respiratory failure. Pulmonology consulted. Patient receiving k-exelate, Plan for DCCV once stable. Potassium will need to be normal. Continue amiodarone gtt. -Echocardiogram was not interpretable and is recommended to be repeated once heart rate is well controlled. No prior testing here. TSH WNL. . (2) Acute and chronic respiratory failure ([id number]) Current Visit: Yes Status: Acute Acute on chronic respiratory failure. Worsening CO2, hyperkalemia. Multifactoral with COPD, severe DANIEL, and possible CHF. Pulmonology consulted. Continue diuresis for pulmonary edema. Strict I&O and daily weight. Low sodium diet recommended. ROSHAN uninterruptible. Repeat once HR controlled. Qualifiers: Respiratory failure complication: hypoxia and hypercapnia Qualified Code(s): J96.21 - Acute and chronic respiratory failure with hypoxia; J96.22 - Acute and chronic respiratory failure with hypercapnia (3) Hyperkalemia Current Visit: Yes Status: Acute Primary team following. Discussion w patient/family: The assessment and plan as outlined above was discussed with the patient and/or family members who expressed understanding and agreement. All questions were answered. Thank you for involving us in the care of your patient. Please call with any questions. Subjective Principal diagnosis: Atrial flutter Interval history: Patient sitting in chair. Continues to have shortness of breath but improved. Heart rate remains elevated. He denies chest pain. Objective Vital Signs, Last 4 Hours Pulse Resp BP Pulse Ox 03/08/19 12:15 122 15 95/59 94 03/08/19 12:07 18 92 General: Conversant, No Apparent Distress HEENT: Atraumatic, Normocephaly, Mucus Membranes Moist Neck: No JVD, Normal carotid pulses Cardiac: Other (irregular) Lungs: Other (trach with ventilator) Neuro: Alert and responsive, No focal deficits noted Abdomen: Soft, Non-Tender Skin: No rashes noted on visualized skin Musculoskeletal: No Chest Wall Tenderness Extremities: No Clubbing, No Cyanosis, Normal Pulses, Other (1+ pitting edema BLE) Results 03/07/19 07:38 03/08/19 05:40 Lab Results 03/07/19 03/07/19 03/08/19 17:00 19:25 00:25 Sodium 138 137 136 Potassium 5.4 H 5.4 H 5.5 H Chloride 90 L 90 L 91 L Carbon Dioxide 43 H* 42 H* 40 H* BUN 26 H 26 H 26 H Creatinine 1.25 1.28 1.11 Glucose 417 H 432 H 453 H Calcium 8.8 8.7 8.4 L Magnesium 2.5 2.6 03/08/19 05:40 Sodium 138 Potassium 5.5 H Chloride 93 L Carbon Dioxide > 45 H* BUN 28 H Creatinine 1.00 Glucose 371 H Calcium 8.5 L Magnesium 2.5 - Imaging and Cardiology Echo: report reviewed - EKG Interpretation EKG results cardiology: personally reviewed Consult Discharge Plan - Plan Referrals: NONE,PCP [Primary Care Provider] -
[2019-03-08 14:52] LABS: BUN/Creatinine Ratio 26 (6-26); Blood Urea Nitrogen 26 mg/dL (6-20); Calcium 8.7 mg/dL (8.6-10.3); Carbon Dioxide > 45 mEq/L (23-29); Chloride 91 mEq/L (98-107); Glucose 322 mg/dL (70-105); Osmolality,Calculated 309 (280-300); Potassium 4.7 mEq/L (3.5-5.1); Sodium 141 mEq/L (136-145); eGFR For African Americans > 60 (> 60); eGFR For Non-African Americans > 60 (> 60)
--- NOTE | 2019-03-08 15:09 | Pulmonology Progress Note ---
<TroyJeovany W - Last Filed: 03/08/19 15:20> Date of Encounter: 03/08/19 Objective PUL Vital signs: Last Vital Signs Temp 98.9 F 03/08/19 03:48 Pulse 122 03/08/19 12:15 Resp 14 03/08/19 12:20 BP 95/59 03/08/19 12:20 Pulse Ox 94 03/08/19 12:20 Ventilator Settings Ventilator Settings: Ventilator Settings, Last 8 Hours Actual Respiratory Rate 14 Actual Respiratory Rate 12 Positive End Expiratory 5 Pressure Positive End Expiratory 5 Pressure Peak Inspiratory Airway 21 Pressure Peak Inspiratory Airway 20 Pressure Results - Laboratory Findings CBC and BMP: 03/07/19 07:38 03/08/19 14:01 ABG ABG pH 7.21 pH Units (7.32-7.45) L 03/08/19 12:12 ABG pCO2 115 mmHg (35-45) H* 03/08/19 12:12 ABG pO2 83 mmHg (85-104) L 03/08/19 12:12 ABG O2 Saturation 92 % (95-98) L 03/08/19 12:12 PT/INR, D-dimer PT 13.2 Seconds (9.4-12.1) H 03/06/19 00:33 Abnormal lab findings: Abnormal lab results MCV 106.9 fL (83.0-100.0) H 03/07/19 07:38 MCHC 28.7 g/dL (31.6-35.5) L 03/07/19 07:38 RDW 14.9 % (11.5-14.5) H 03/06/19 00:33 Hypochromasia Present (Not Present) A 03/07/19 07:38 PT 13.2 Seconds (9.4-12.1) H 03/06/19 00:33 ABG pH 7.21 pH Units (7.32-7.45) L 03/08/19 12:12 ABG pCO2 115 mmHg (35-45) H* 03/08/19 12:12 ABG pO2 83 mmHg (85-104) L 03/08/19 12:12 ABG HCO3 46 mEq/L (21-27) H 03/08/19 12:12 ABG Total CO2 50 mEq/L (20-26) H 03/08/19 12:12 ABG O2 Saturation 92 % (95-98) L 03/08/19 12:12 ABG Base Excess 12 mEq/L (-2 to 3) H 03/08/19 12:12 Potassium 5.5 mEq/L (3.5-5.1) H 03/08/19 05:40 Chloride 91 mEq/L (98-107) L 03/08/19 14:01 Carbon Dioxide > 45 mEq/L (23-29) H* 03/08/19 14:01 BUN 26 mg/dL (6-20) H 03/08/19 14:01 BUN/Creatinine Ratio 28 (6-26) H 03/08/19 05:40 Glucose 322 mg/dL (70-105) H 03/08/19 14:01 POC Glucose 341 mg/dL (70-99) H 03/08/19 08:06 Hemoglobin A1c 10.0 % (-5.6) H 03/06/19 00:33 Calculated Osmolality 309 (280-300) H 03/08/19 14:01 Calcium 8.5 mg/dL (8.6-10.3) L 03/08/19 05:40 AST 12 Units/L (13-39) L 03/06/19 00:33 Serum Total Protein 6.1 g/dL (6.4-8.9) L 03/06/19 00:33 Albumin 3.2 g/dL (3.5-5.7) L 03/06/19 00:33 - Clinical Findings Intake & Output: Intake & Output 03/07/19 03/08/19 03/08/19 23:59 07:59 15:59 Intake Total 920 / 2320 200 / 200 Output Total 1650 / 5500 1050 / 2400 1350 / 2400 Balance -730 / -3180 -850 / -2200 -1350 / -2200 Consult Discharge Plan - Plan Referrals: NONE,PCP [Primary Care Provider] - - Attending Attestation I examined this patient and my medical decision-making was reviewed with the Resident Physician. I agree with the documented findings, disposition and treatment plan as described except to the extent set forth below. We independently had [id number] contact with the patient Patient seen and examined at bedside Labs, radiology, chart personally reviewed. Impression/Recs: Acute on chronic hypoxic hypercapnic respiratory failure Decompensated heart failure COPD A. fib with RVR Obesity hypoventilation syndrome Chronic tracheostomy placement Recs: Worsening gas exchange today which is likely secondary to CHF patient will need to be coupled to the ventilator over the next 24 hours recommend replacing uncuffed tracheostomy with cuffed Trach repeat ABG after 2-4 hours of patient being coupled to the circuit. Gen. strategy should be a pressure support during the day and patient should be on the ventilator (A/C mode) overnight. Aggressive diuresis heart failure is can be managed by the cardiology service If concern about rising HCO3 s/t but normal renal function can consider temporary use of Diamox. Patient remains grossly volume overloaded Continue schedule bronchodilators <Tae Clark - Last Filed: 03/08/19 16:14> Date of Encounter: 03/08/19 Time of Encounter: 14:00 Assessment and Plan (1) Acute and chronic respiratory failure ([id number]) Current Visit: Yes Status: Acute Patient was noted to be more somnolent on exam today. Repeat EKG ABG revealed worsening hypercapnia. Patient does have a history of chronic respiratory failure with hypercapnia secondary to obesity hypoventilation syndrome. However, patient respiratory status has acutely worsened from day before with increasing CO2 and decreasing pO2. Chest x-ray 03/06/19 revealed significant cardiomegaly with vascular congestion and bilateral pulmonary opacities media sales representative of pulmonary edema. Suspect patient suffering from decreased gas exchange and VQ mismatch secondary to alveolar space filling as a result of an acutely decompensated exacerbation of congestive heart failure. Patient has a tracheostomy in place though it is not cuffed and ventilatory support is less than effective as a result of this. Plan: -ENT consulted for trach exchange with cuff -Patient will need ventilatory support at least for today, pressure support during day -Continue bronchodilators -Suspect patient's significant fluid overload is contributing to his poor resp iratory status, decreased gas exchange, worsening hypercapnia -Recommend continued diuresis, blood pressure/heart rate will likely improve secondary to this, may add albumin as needed Qualifiers: Respiratory failure complication: hypoxia and hypercapnia Qualified Code(s): J96.21 - Acute and chronic respiratory failure with hypoxia; J96.22 - A cute and chronic respiratory failure with hypercapnia (2) CHF exacerbation Current Visit: Yes Status: Acute Patient is in an acute exacerbation of CHF Continue with 1.5 L fluid restriction Continue with diuresis as tolerable by kidney function, suspect blood pressure and respiratory status will improve secondary to this Qualifiers: Heart failure type: unspecified Qualified Code(s): I50.9 - Heart failure, unspecified (3) Obesity hypoventilation syndrome Current Visit: Yes Status: Chronic Morbidly obese individual with chronic hypercapnic respiratory failure suffers from obesity hypoventilation syndrome. Patient currently on cardiac diet, recommend instructions regarding lifestyle modification and low sodium diet moving forward. Rest of plan for hypoventilation as above. Subjective Principal diagnosis: Atrial flutter Interval history: Pulmonology was requested to reexamine patient today secondary to increased somnolence this morning. Repeat ABG revealed worsening hypercapnia, PCO2 115. Patient was restarted on ventilator support administered through the tracheostomy tube. Patient does have problems with his tracheostomy and that it is not cuffed, RT was requested for assistance in replacing with cuff. Patient reports significant tobacco abuse history. The patient continues to be short of breath subjectively. On exam is significantly fluid overloaded with abdominal distention, +2 bilateral peripheral edema. Chest x-ray revealed 03/06/2019 revealed severe cardiomegaly with bilateral opacifications media sales representative of pulmonary edema. Objective PUL Vital signs: Last Vital Signs Temp 98.9 F 03/08/19 03:48 Pulse 122 03/08/19 12:15 Resp 14 03/08/19 12:20 BP 95/59 03/08/19 12:20 Pulse Ox 94 03/08/19 12:20 General appearance: appears uncomfortable Eyes: nonicteric ENT: oropharynx moist Mallampati (class): 4 Neck: supple, no lymphadenopathy Auscultation: bilateral: diminished breath sounds, rales (most pronounced at the bases) Cardiovascular: irregular rhythm (AFib RVR) Gastrointestinal: soft, non-tender, other (distended) Integumentary: normal Extremities: no cyanosis, edema non-focal exam, pupils equal and round mood appropriate, affect normal Ventilator Settings Ventilator Settings: Ventilator Settings, Last 8 Hours Actual Respiratory Rate 14 Actual Respiratory Rate 12 Positive End Expiratory 5 Pressure Positive End Expiratory 5 Pressure Peak Inspiratory Airway 21 Pressure Peak Inspiratory Airway 20 Pressure Results - Laboratory Findings CBC and BMP: 03/07/19 07:38 03/08/19 14:01 ABG ABG pH 7.21 pH Units (7.32-7.45) L 03/08/19 12:12 ABG pCO2 115 mmHg (35-45) H* 03/08/19 12:12 ABG pO2 83 mmHg (85-104) L 03/08/19 12:12 ABG O2 Saturation 92 % (95-98) L 03/08/19 12:12 PT/INR, D-dimer PT 13.2 Seconds (9.4-12.1) H 03/06/19 00:33 Abnormal lab findings: Abnormal lab results MCV 106.9 fL (83.0-100.0) H 03/07/19 07:38 MCHC 28.7 g/dL (31.6-35.5) L 03/07/19 07:38 RDW 14.9 % (11.5-14.5) H 03/06/19 00:33 Hypochromasia Present (Not Present) A 03/07/19 07:38 PT 13.2 Seconds (9.4-12.1) H 03/06/19 00:33 ABG pH 7.21 pH Units (7.32-7.45) L 03/08/19 12:12 ABG pCO2 115 mmHg (35-45) H* 03/08/19 12:12 ABG pO2 83 mmHg (85-104) L 03/08/19 12:12 ABG HCO3 46 mEq/L (21-27) H 03/08/19 12:12 ABG Total CO2 50 mEq/L (20-26) H 03/08/19 12:12 ABG O2 Saturation 92 % (95-98) L 03/08/19 12:12 ABG Base Excess 12 mEq/L (-2 to 3) H 03/08/19 12:12 Potassium 5.5 mEq/L (3.5-5.1) H 03/08/19 05:40 Chloride 91 mEq/L (98-107) L 03/08/19 14:01 Carbon Dioxide > 45 mEq/L (23-29) H* 03/08/19 14:01 BUN 26 mg/dL (6-20) H 03/08/19 14:01 BUN/Creatinine Ratio 28 (6-26) H 03/08/19 05:40 Glucose 322 mg/dL (70-105) H 03/08/19 14:01 POC Glucose 341 mg/dL (70-99) H 03/08/19 08:06 Hemoglobin A1c 10.0 % (-5.6) H 03/06/19 00:33 Calculated Osmolality 309 (280-300) H 03/08/19 14:01 Calcium 8.5 mg/dL (8.6-10.3) L 03/08/19 05:40 AST 12 Units/L (13-39) L 03/06/19 00:33 Serum Total Protein 6.1 g/dL (6.4-8.9) L 03/06/19 00:33 Albumin 3.2 g/dL (3.5-5.7) L 03/06/19 00:33 - Clinical Findings Intake & Output: Intake & Output 03/07/19 03/08/19 03/08/19 23:59 07:59 15:59 Intake Total 920 / 2320 200 / 200 Output Total 1650 / 5500 1050 / 2400 1350 / 2400 Balance -730 / -3180 -850 / -2200 -1350 / -2200
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
[2019-03-08] MEDS: Furosemide 20 MG/2 ML VIAL IVP SCH (20:19)
[2019-03-08] MEDS: *HR* OxyCODONE Immed Rel 5 MG TABLET PO PRN (20:23)
[2019-03-08] MEDS ORDERED: Melatonin 3 MG TABLET PO PRN (23:44)
[2019-03-09] MEDS: Amiodarone Premix 360 MG/200 ML BAG IVC SCH ×2 (05:55→19:34)
[2019-03-09 06:36] LABS: BUN/Creatinine Ratio 23 (6-26); Blood Urea Nitrogen 29 mg/dL (6-20); Calcium 8.5 mg/dL (8.6-10.3); Carbon Dioxide 44 mEq/L (23-29); Chloride 93 mEq/L (98-107); Glucose 295 mg/dL (70-105); Magnesium 2.3 mg/dL (1.6-2.6); Osmolality,Calculated 311 (280-300); Phosphorous 3.5 mg/dL (2.7-4.5); Potassium 4.7 mEq/L (3.5-5.1); Sodium 142 mEq/L (136-145); eGFR For African Americans > 60 (> 60); eGFR For Non-African Americans > 60 (> 60)
--- NOTE | 2019-03-09 07:48 | Anesthesia Evaluation PreOp ---
Date of Encounter: 03/09/19 Time of Encounter: 12:00 - Past History Planned Operation: Trach change Cardiac History: CHF, HTN, Hyperlipidemia, Arrhythmia (a-fib with RVR. Sounds as if patient is always tachycardic per chart. on Amiodarone gtt currently) Pulmonary History: Smoker (1.5 - 2 ppd x years), COPD, Other (obesity hypoventilation syndrome, acute on chronic resp failure) Other Medical History: Diabetes Type II, GERD, Other (super morbid obesity 219kg with BMI 78) Anesthesia History: No Prior Anesthetic Complications, Past Anesthesia (tracheosotomy) Alcohol Use: none Drug use: none Medications and Allergies Apixaban [Eliquis] 5 mg PO BID 03/06/19 [History] Atorvastatin Calcium [Lipitor] 80 mg PO HS 03/06/19 [History] Escitalopram [Lexapro] 10 mg PO DAILY 03/06/19 [History] Ferrous Sulfate [Iron] 325 mg PO BID 03/06/19 [History] Furosemide [Lasix] 20 mg PO DAILY PRN 03/06/19 [History] Furosemide [Lasix] 40 mg PO DAILY 03/06/19 [History] Gabapentin [Neurontin] 800 mg PO QID 03/06/19 [History] Insulin Glargine,Hum.rec.anlog [Basaglar Kwikpen U-100] 60 unit SQ HS 03/06/19 [History] Insulin LISPRO [HumaLOG] 15 unit SQ TIDWM 03/06/19 [History] Loratadine [Allergy Relief] 10 mg PO DAILY 03/06/19 [History] Magnesium Oxide [Magnesium] 400 mg PO TID 03/06/19 [History] Metoprolol Tartrate [Lopressor] 50 mg PO Q6H 03/06/19 [History] OxyCODONE Immed Rel [Roxicodone 10 MG] 10 mg PO BID PRN 03/06/19 [History] Pantoprazole Sodium [Protonix] 40 mg PO DAILY 03/06/19 [History] diazePAM [Valium] 5 mg PO BID PRN 03/06/19 [History] Allergy/AdvReac Type Severity Reaction Status Date / Time morphine Allergy Anaphylaxis Verified 03/06/19 10:09 - Meds/Allergy Pre-op Review Medications Reviewed: Yes Allergies Reviewed: Yes Beta Blockers on Current Med List: Yes (loprerssor) If Beta Blockers taken, Date/Time (Last Dose taken): today 0647 Anesthesia Results - Labs 03/07/19 07:38 03/09/19 05:45 Anesthesia Exam Selected Entries 03/09/19 06:19 03/09/19 06:34 Pulse Rate 132 Respiratory Rate 22 Blood Pressure 139/91 O2 Sat by Pulse Oximetry 96 Fraction of Inspired Oxygen % 55 Oxygen Delivery Method Mechanical Ventilation Weight: 219kg BMI 78 - HEENT Pupil (Motor): EOMI Mallampati: Trach (on vent) - SURVEY ENGINEER LOC: Oriented SURVEY ENGINEER Motor: Normal RUE, Normal LUE, Normal RLE, Normal LLE, Normal Face SURVEY ENGINEER Sensory: Normal: RUE, LUE, RLE, LLE, Face - Cardiac Rhythm: Irregular (afib with rapid rate) - Pulmonary Breath Sounds: bilateral Clear Respiratory Effort: Symmetrical Anesthesia Assess/Plan ASA Score: 4 Level of consciousness: Cooperative, Oriented Anesthetic Plan: General Monitoring Plan: Standard Monitors Recovery Plan: PACU (will need iv placed for better access. Currently on ventilator for his comfort but is able to breath on own. High risk patient.)
--- NOTE | 2019-03-09 08:01 | Pulmonology Progress Note ---
Date of Encounter: 03/09/19 Time of Encounter: 08:01 Assessment and Plan (1) Acute and chronic respiratory failure ([id number]) Current Visit: Yes Status: Acute Clinically patient appears to have stabilized with augmentation of his respiratory status with the ventilator support through tracheostomy. I agree with trach exchange for cuff trach and in the interim can continue pressure support through the ventilator and then couple him back up at night Assist control mode over the next 24 hours we can adjust this to get him back to home regimen of trach collar as a clinical improves this. It appears that the etiology of acute respiratory failure is decompensated heart failure from A. fib with RVR cardiology is following for this from my standpoint he will benefit from continued aggressive diuresis and heart rate control. ABGs could be useful if patient becomes more somnolent otherwise I would just continue to follow his oxygen saturation. Patient likely does have underlying COPD and will benefit from scheduled bronchodilators. Qualifiers: Respiratory failure complication: hypoxia and hypercapnia Qualified Code(s): J96.21 - Acute and chronic respiratory failure with hypoxia; J96.22 - Acute and chronic respiratory failure with hypercapnia (2) Atrial flutter with rapid ventricular response Current Visit: Yes Status: Acute (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 (4) Obesity hypoventilation syndrome Current Visit: Yes Status: Chronic (5) COPD (chronic obstructive pulmonary disease) Current Visit: Yes Status: Acute Qualifiers: Emphysema type: unspecified Qualified Code(s): J43.9 - Emphysema, unspecified (6) CHF exacerbation Current Visit: Yes Status: Acute Qualifiers: Heart failure type: unspecified Qualified Code(s): I50.9 - Heart failure, unspecified Subjective Principal diagnosis: Atrial flutter Interval history: No acute events overnight patient has been less somnolent he has been coupled to the ventilator circuit and A/C mode overnight this is cost some discomfort because he still has a uncuffed trachea and. He was evaluated by ENT with plan to exchange trach in the OR setting for what I can gather today. Objective PUL Vital signs: Last Vital Signs Temp 97.8 F 03/09/19 07:50 Pulse 123 03/09/19 07:50 Resp 20 03/09/19 07:50 BP 131/62 03/09/19 07:50 Pulse Ox 96 03/09/19 07:50 General appearance: no acute distress Eyes: nonicteric ENT: oropharynx moist Effort: mildly labored Auscultation: bilateral: rhonchi (In lung bases) Cardiovascular: irregular rhythm Gastrointestinal: soft, non-tender, other (Patient has a morbidly obese habitus) Extremities: edema Musculoskeletal: no deformities normal mental status, non-focal exam mood appropriate Ventilator Settings Ventilator Settings: Ventilator Settings, Last 8 Hours Ventilator Tidal Volume 500 Setting Ventilator Tidal Volume 500 Setting Ventilator Tidal Volume 500 Setting Ventilator Tidal Volume 500 Setting Ventilator Tidal Volume 500 Setting Ventilator Respiratory Rate 16 Setting Ventilator Respiratory Rate 16 Setting Ventilator Respiratory Rate 16 Setting Ventilator Respiratory Rate 16 Setting Ventilator Respiratory Rate 16 Setting Actual Respiratory Rate 22 Actual Respiratory Rate 20 Actual Respiratory Rate 20 Positive End Expiratory 5 Pressure Positive End Expiratory 5 Pressure Positive End Expiratory 5 Pressure Positive End Expiratory 5 Pressure Positive End Expiratory 5 Pressure Positive End Expiratory 5 Pressure Peak Inspiratory Airway 18 Pressure Peak Inspiratory Airway 19 Pressure Peak Inspiratory Airway 19 Pressure Results - Laboratory Findings CBC and BMP: 03/07/19 07:38 03/09/19 05:45 ABG ABG pH 7.21 pH Units (7.32-7.45) L 03/08/19 12:12 ABG pCO2 115 mmHg (35-45) H* 03/08/19 12:12 ABG pO2 83 mmHg (85-104) L 03/08/19 12:12 ABG O2 Saturation 92 % (95-98) L 03/08/19 12:12 PT/INR, D-dimer PT 13.2 Seconds (9.4-12.1) H 03/06/19 00:33 Abnormal lab findings: Abnormal lab results MCV 106.9 fL (83.0-100.0) H 03/07/19 07:38 MCHC 28.7 g/dL (31.6-35.5) L 03/07/19 07:38 RDW 14.9 % (11.5-14.5) H 03/06/19 00:33 Hypochromasia Present (Not Present) A 03/07/19 07:38 PT 13.2 Seconds (9.4-12.1) H 03/06/19 00:33 ABG pH 7.21 pH Units (7.32-7.45) L 03/08/19 12:12 ABG pCO2 115 mmHg (35-45) H* 03/08/19 12:12 ABG pO2 83 mmHg (85-104) L 03/08/19 12:12 ABG HCO3 46 mEq/L (21-27) H 03/08/19 12:12 ABG Total CO2 50 mEq/L (20-26) H 03/08/19 12:12 ABG O2 Saturation 92 % (95-98) L 03/08/19 12:12 ABG Base Excess 12 mEq/L (-2 to 3) H 03/08/19 12:12 Potassium 5.5 mEq/L (3.5-5.1) H 03/08/19 05:40 Chloride 93 mEq/L (98-107) L 03/09/19 05:45 Carbon Dioxide 44 mEq/L (23-29) H* 03/09/19 05:45 BUN 29 mg/dL (6-20) H 03/09/19 05:45 BUN/Creatinine Ratio 28 (6-26) H 03/08/19 05:40 Glucose 295 mg/dL (70-105) H 03/09/19 05:45 POC Glucose 372 mg/dL (70-99) H 03/08/19 16:39 Hemoglobin A1c 10.0 % (-5.6) H 03/06/19 00:33 Calculated Osmolality 311 (280-300) H 03/09/19 05:45 Calcium 8.5 mg/dL (8.6-10.3) L 03/09/19 05:45 AST 12 Units/L (13-39) L 03/06/19 00:33 Serum Total Protein 6.1 g/dL (6.4-8.9) L 03/06/19 00:33 Albumin 3.2 g/dL (3.5-5.7) L 03/06/19 00:33 - Clinical Findings Intake & Output: Intake & Output 03/08/19 03/09/19 03/09/19 23:59 07:59 15:59 Intake Total 680 / 880 Output Total 4050 / 6450 250 / 250 Balance -3370 / -5570 -250 / -250 Weight 219.4 kg Consult Discharge Plan - Plan Referrals: NONE,PCP [Primary Care Provider] -
[2019-03-09] MEDS ORDERED: Furosemide 20 MG/2 ML VIAL IVP SCH (09:00)
[2019-03-09] MEDS ORDERED: *HR* Digoxin 0.5 MG/2 ML AMPUL IVP ONE (09:01)
[2019-03-09] MEDS: predniSONE 10 MG TABLET PO SCH (09:21)
[2019-03-09] MEDS: diazePAM 5 MG TABLET PO SCH ×2 (09:21→21:10)
[2019-03-09] MEDS: Magnesium Oxide 400 MG TABLET PO SCH ×3 (09:21→21:10)
[2019-03-09] MEDS: Gabapentin 400 MG CAPSULE PO SCH ×4 (09:22→21:10)
[2019-03-09] MEDS: Loratadine 10 MG TABLET PO SCH (09:22)
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
[2019-03-09] MEDS: Insulin LISPRO 300 UNITS/3 ML VIAL SQ SCH ×7 (09:31→21:08)
[2019-03-09] MEDS: Nicotine 21 MG PATCH.TD24 TD SCH (09:45)
[2019-03-09] MEDS: Insulin DETEMIR 100 UNIT/ML X5UNITS SQ SCH ×2 (09:45→21:10)
[2019-03-09] MEDS: Apixaban 5 MG TABLET PO SCH ×2 (11:03→21:04)
[2019-03-09] MEDS ORDERED: Lidocaine/EPI 1:100k 1% 20 ML VIAL ONE (12:11)
[2019-03-09] MEDS ORDERED: Lidocaine/EPI 1:200k 1% PF 10 ML VIAL ONE (12:11)
[2019-03-09] MEDS ORDERED: *HR* FentaNYL (PF) 100 MCG/2 ML VIAL ONE (12:34)
[2019-03-09] MEDS ORDERED: *HR* Midazolam HCl 2 MG/2 ML VIAL ONE ×2 (12:34)
[2019-03-09] MEDS ORDERED: Lidocaine -MPF 2% 2 ML VIAL ONE (12:34)
[2019-03-09] MEDS ORDERED: *HR* Propofol 200 MG/20 ML VIAL IVP ONE (12:34)
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
--- NOTE | 2019-03-09 13:22 | Anesthesia Evaluation Post Op ---
Date of Encounter: 03/09/19 Time of Encounter: 13:20 - Vital Signs Vital Signs: Vital Signs/O2 Sat, Most Current Temp Pulse Resp BP Pulse Ox 97.9 F 125 18 148/62 92 03/09/19 12:48 03/09/19 13:08 03/09/19 13:08 03/09/19 13:08 03/09/19 13:08 - Lungs Lungs: Clear Ascult./Percussion - Airway Airway: Non-obstructed (trach) - Cardiovascular Regular Rate, Baseline Rhythm - Mental Status Mental Status: Alert & Oriented, Answers Appropriately - Nausea Vomiting Nausea Vomiting: Not Present - Hydration Hydration: NPO - Discharge PostOp Status: Transfer Patient to floor
--- NOTE | 2019-03-09 14:19 | Internal Med Progress Note ---
Hospitalist Progress Note - Encounter Date of Encounter: 03/09/19 Time of Encounter: 14:16 - Subjective Interval History: I have seen and evaluated the patient at bedside. Patient in no distress, denies chest pain, nausea, vomiting or abdominal pain - Exam Vitals: Temp Pulse Resp BP Pulse Ox 97.7 F 125 18 141/54 92 03/09/19 13:17 03/09/19 13:17 03/09/19 13:17 03/09/19 13:17 03/09/19 13:17 Exam: Vitals: Reviewed General: Morbidly obese, Alert and oriented x3. No acute distress Cardiovascular: Irregularly, irregular, normal S1 & S2, no rubs, murmurs or gal lops. Lungs: expiratory wheezing b/l, crackles at the base b/l, no rales. Abdomen: Obese, soft, non-tender, no rigidity. NABS in all 4 quadrants Extremities: 2+ edema in the lower extr b/l Neurological: No focal neurological abnormalities. Rest of the physical exam is non contributory - Assessment and Plan (1) Acute and chronic respiratory failure ([id number]) Current Visit: Yes Status: Acute Assessment and Plan: patient scheduled for tach replacement today by ENT. after trach replacement patient to be on the vent for the following 24 hours pulm recommended: pressure support through the ventilator and then couple him back up at night Assist control mode continue bronchodilators on steroids and empirically on oral antibiotics. (2) Atrial flutter with rapid ventricular response Current Visit: Yes Status: Acute Assessment and Plan: HR sub-optimally controlled. patient continues to be on an amiodarone drip. started on digoxin. c/w apixaban cardiology assistance on rate controlled appreciated. on a bb. (3) CHF exacerbation Current Visit: Yes Status: Acute Assessment and Plan: patient with a total negative fluid balance of 8.6 litters today's dose of furosemide held due to hypercapnia acetazolamide x1 dose given continue strict intake and output plus daily weight. (4) Diabetes Current Visit: Yes Status: Chronic Assessment and Plan: blood sugar is sub-optimally controlled. levemir increased to 40 units bid and lispro increased to 13 units ac. lispro high dose sliding scale ac. (5) History of DVT in adulthood Current Visit: Yes Status: Chronic Assessment and Plan: c/w apixaban 5mg/PO BID (6) Hypertension Current Visit: Yes Status: Chronic Assessment and Plan: BP is better controlled today. continue metoprolol. consider increasing furosemide dose tomorrow if BP tolerates it. (7) Hyperlipidemia Current Visit: Yes Status: Chronic Assessment and Plan: On atorvastatin 80 mg by mouth at bedtime. (8) GERD (gastroesophageal reflux disease) Current Visit: Yes Status: Chronic Assessment and Plan: Continue omeprazole 20 mg by mouth daily. (9) Tracheostomy in place Current Visit: Yes Status: Chronic (10) COPD exacerbation Current Visit: Yes Status: Suspected Assessment and Plan: Plan of care as problem #1. (11) History of smoking Current Visit: Yes Status: Chronic (12) Obesity hypoventilation syndrome Current Visit: Yes Status: Chronic DVT Prophylaxis: patient on an oral anticoagulant. Hx of DVT. - Summary of Assessment and Plan Summary of Assessment and Plan: patient to remain in the Hospital still on A.fib with RvR, on an amiodarone drip. - Time Spent with Patient Total time spent is greater than 50% in coordination of care (as documented) at patient's floor/unit and/or counseling patient: Greater than 35 minutes (40) Plan of Care Discussed with: patient (and the nurse.) Internal Medicine: Result - Labs CBC & Chem 7: 03/07/19 07:38 03/09/19 05:45 Labs: BMP 03/08/19 03/08/19 03/09/19 14:01 17:06 05:45 Sodium 141 142 Potassium 4.7 4.7 4.7 Chloride 91 L 93 L Carbon Dioxide > 45 H* 44 H* BUN 26 H 29 H Creatinine 1.01 1.26 Glucose 322 H 295 H Calcium 8.7 8.5 L - ABG Interpretation ABG results: ABG ABG pH 7.21 pH Units (7.32-7.45) L 03/08/19 12:12 ABG pCO2 115 mmHg (35-45) H* 03/08/19 12:12 ABG pO2 83 mmHg (85-104) L 03/08/19 12:12 ABG O2 Saturation 92 % (95-98) L 03/08/19 12:12 PT/INR, D-dimer PT 13.2 Seconds (9.4-12.1) H 03/06/19 00:33 - Impressions Impressions Chest X-Ray 03/08/19 12:42 IMPRESSION: Stable enlargement of the cardiopericardial silhouette. Prominence of the central pulmonary vasculature. Correlation for pulmonary vascular congestion is recommended. D/ / Miguelina Bello Cha, MD / Miguelina Bello Cha, MD Interpreting Provider: Miguelina Bello Cha, MD Consult Discharge Plan - Plan Referrals: NONE,PCP [Primary Care Provider] - (1) Acute and chronic respiratory failure ([id number]) Qualifiers: Respiratory failure complication: hypoxia and hypercapnia Qualified Code(s): J96.21 - Acute and chronic respiratory failure with hypoxia; J96.22 - Acute and chronic respiratory failure with hypercapnia (3) CHF exacerbation Qualifiers: Heart failure type: diastolic Qualified Code(s): I50.33 - Acute on chronic diastolic (congestive) heart failure (4) Diabetes Qualifiers: Diabetes mellitus type: type 2 Diabetes mellitus termite exterminator insulin use: with alf use Diabetes mellitus complication status: without complication Qualified Code(s): E11.9 - Type 2 diabetes mellitus without complications; Z79.4 - senior care (current) use of insulin (6) Hypertension Qualifiers: Hypertension type: essential hypertension Qualified Code(s): I10 - Essential (primary) hypertension (7) Hyperlipidemia Qualifiers: Hyperlipidemia type: unspecified Qualified Code(s): E78.5 - Hyperlipidemia, u nspecified (8) GERD (gastroesophageal reflux disease) Qualifiers: Esophagitis presence: esophagitis presence not specified Qualified Code(s): K 21.9 - Gastro-esophageal reflux disease without esophagitis
[2019-03-09] MEDS: Levalbuterol Neb 0.63 MG/3 ML IH SCH ×2 (15:58→21:02)
[2019-03-09] MEDS: *HR* OxyCODONE Immed Rel 5 MG TABLET PO PRN (16:30)
[2019-03-09] MEDS: *HR* Digoxin 0.5 MG/2 ML AMPUL IVP SCH ×2 (16:30→21:09)
--- NOTE | 2019-03-09 17:38 | Event Note ---
Date of Encounter: 03/09/19 Time of Encounter: 17:37 Patient seen and examined postoperatively on the floor. Patient on ventilator support with new trach tube in place was inflated cough. Patient with improved oxygenation and volumes sense new trach tube was placed. Patient sitting up and eating in bed at time of check. Patient without any complaint. Patient tolerating a regular diet. Neck with trach tube in place no bleeding or drainage. Cuff is inflated. No subcutaneous air. Patient will need trach tube changed every 3 months. Patient should follow-up as outpatient ENT clinic for trach tube change. ENT to sign off. Please contact ENT as needed.
[2019-03-10] MEDS: Levalbuterol Neb 0.63 MG/3 ML IH SCH ×4 (03:57→21:54)
[2019-03-10 04:11] LABS: Basophils % 0.1 %
[2019-03-10 04:12] LABS: Hematocrit 43.6 % (37.5-50.1); Immature Granulocytes % 0.4 % (0-4); Lymphocytes # 1.4 K/mcL (0.6-4.6); Lymphocytes % 19.5 %; Mean Corpuscular HGB Conc 29.8 g/dL (31.6-35.5); Mean Corpuscular Hemoglobin 30.7 pg (28.0-33.3); Mean Corpuscular Volume 103.1 fL (83.0-100.0); Mean Platelet Volume 10.6 fL (9.4-12.4); Monocytes # 0.6 K/mcL (0.0-1.3); Monocytes % 8.7 %; Platelet Count 178 K/mcL (140-400); Red Blood Count 4.23 M/mcL (4.19-5.50); Segmented Neutrophils % 71.3 %; White Blood Count 7.4 K/mcL (4.3-11.1)
[2019-03-10 04:19] LABS: Neutrophils # 5.3 K/mcL (1.6-8.9)
[2019-03-10 04:29] LABS: BUN/Creatinine Ratio 24 (6-26); Blood Urea Nitrogen 23 mg/dL (6-20); Calcium 8.3 mg/dL (8.6-10.3); Carbon Dioxide 43 mEq/L (23-29); Chloride 93 mEq/L (98-107); Glucose 251 mg/dL (70-105); Magnesium 2.4 mg/dL (1.6-2.6); Osmolality,Calculated 302 (280-300); Phosphorous 3.2 mg/dL (2.7-4.5); Potassium 4.6 mEq/L (3.5-5.1); Sodium 140 mEq/L (136-145); eGFR For African Americans > 60 (> 60); eGFR For Non-African Americans > 60 (> 60)
[2019-03-10 04:40] LABS: Hypochromasia Present (Not Present); Platelet Estimate Normal (Normal)
[2019-03-10] MEDS: Nicotine 21 MG PATCH.TD24 TD SCH (07:57)
[2019-03-10] MEDS: Amiodarone Premix 360 MG/200 ML BAG IVC SCH (07:59)
[2019-03-10] MEDS: Loratadine 10 MG TABLET PO SCH (08:01)
[2019-03-10] MEDS: diazePAM 5 MG TABLET PO SCH ×2 (08:01→20:56)
[2019-03-10] MEDS: Apixaban 5 MG TABLET PO SCH ×2 (08:01→20:57)
[2019-03-10] MEDS: Gabapentin 400 MG CAPSULE PO SCH ×4 (08:01→20:59)
[2019-03-10] MEDS: Magnesium Oxide 400 MG TABLET PO SCH ×3 (08:01→20:59)
[2019-03-10] MEDS: *HR* OxyCODONE Immed Rel 5 MG TABLET PO PRN ×2 (08:03→20:59)
[2019-03-10] MEDS: Furosemide 20 MG/2 ML VIAL IVP SCH (08:05)
[2019-03-10] MEDS: Insulin DETEMIR 100 UNIT/ML X5UNITS SQ SCH ×2 (08:09→21:03)
[2019-03-10] MEDS: predniSONE 10 MG TABLET PO SCH (08:42)
[2019-03-10] MEDS: Insulin LISPRO 300 UNITS/3 ML VIAL SQ SCH ×7 (08:43→21:01)
--- NOTE | 2019-03-10 11:32 | Pulmonology Progress Note ---
<Tae Clark M - Last Filed: 03/10/19 11:30> Date of Encounter: 03/10/19 Time of Encounter: 10:00 Assessment and Plan (1) Acute and chronic respiratory failure ([id number]) Current Visit: Yes Status: Acute Patient was noted to be more somnolent on exam today. Repeat EKG ABG revealed worsening hypercapnia. Patient does have a history of chronic respiratory failure with hypercapnia secondary to obesity hypoventilation syndrome. However, patient respiratory status has acutely worsened from day before with increasing CO2 and decreasing pO2. Chest x-ray 03/06/19 revealed significant cardiomegaly with vascular congestion and bilateral pulmonary opacities international sales representative of pulmonary edema. Suspect patient suffering from decreased gas exchange and VQ mismatch secondary to alveolar space filling as a result of an acutely decompensated exacerbation of congestive heart failure. Patient has a tracheostomy in place though it is not cuffed and ventilatory support is less than effective as a result of this. Plan: -ENT consulted for trach exchange with cuff -Patient will need ventilatory support at least for today, pressure support during day -Continue bronchodilators -Suspect patient's significant fluid overload is contributing to his poor respiratory status, decreased gas exchange, worsening hypercapnia -Recommend continued diuresis, blood pressure/heart rate will likely improve secondary to this, may add albumin as needed Qualifiers: Respiratory failure complication: hypoxia and hypercapnia Qualified Code(s): J96.21 - Acute and chronic respiratory failure with hypoxia; J96.22 - Acute and chronic respiratory failure with hypercapnia (2) CHF exacerbation Current Visit: Yes Status: Acute Patient is in an acute exacerbation of CHF Continue with 1.5 L fluid restriction Continue with diuresis as tolerable by kidney function, suspect blood pressure and respiratory status will improve secondary to this Qualifiers: Heart failure type: diastolic Qualified Code(s): I50.33 - Acute on chronic diastolic (congestive) heart failure (3) Obesity hypoventilation syndrome Current Visit: Yes Status: Chronic Morbidly obese individual with chronic hypercapnic respiratory failure suffers from obesity hypoventilation syndrome. Patient currently on cardiac diet, recommend instructions regarding lifestyle modification and low sodium diet moving forward. Rest of plan for hypoventilation as above. Subjective Principal diagnosis: Atrial flutter Interval history: Patient seen and examined at bedside this morning. Patient's tracheostomy was replaced with cough. Patient tolerating pressure support on vent overnight, no complaints. However patient does report a strong desire to eat. He was nothing by mouth for possible cardioversion however today his rate is controlled and cardioversion has been canceled. Patient remains significantly fluid overloaded. Patient subjectively reports somewhat improved rest or status. Objective PUL Vital signs: Last Vital Signs Temp 98.5 F 03/10/19 07:37 Pulse 103 03/10/19 07:37 Resp 20 03/10/19 10:18 BP 114/64 03/10/19 07:37 Pulse Ox 89 03/10/19 10:18 Ventilator Settings Ventilator Settings: Ventilator Settings, Last 8 Hours Ventilator Tidal Volume 500 Setting Ventilator Tidal Volume 500 Setting Ventilator Tidal Volume 500 Setting Ventilator Tidal Volume 500 Setting Ventilator Respiratory Rate 16 Setting Ventilator Respiratory Rate 16 Setting Ventilator Respiratory Rate 16 Setting Ventilator Respiratory Rate 16 Setting Actual Respiratory Rate 16 Actual Respiratory Rate 16 Actual Respiratory Rate 16 Actual Respiratory Rate 16 Positive End Expiratory 5 Pressure Positive End Expiratory 5 Pressure Positive End Expiratory 5 Pressure Positive End Expiratory 5 Pressure Peak Inspiratory Airway 27 Pressure Peak Inspiratory Airway 27 Pressure Peak Inspiratory Airway 27 Pressure Peak Inspiratory Airway 27 Pressure Results - Laboratory Findings CBC and BMP: 03/10/19 03:39 03/10/19 03:39 ABG ABG pH 7.21 pH Units (7.32-7.45) L 03/08/19 12:12 ABG pCO2 115 mmHg (35-45) H* 03/08/19 12:12 ABG pO2 83 mmHg (85-104) L 03/08/19 12:12 ABG O2 Saturation 92 % (95-98) L 03/08/19 12:12 PT/INR, D-dimer PT 13.2 Seconds (9.4-12.1) H 03/06/19 00:33 Abnormal lab findings: Abnormal lab results MCV 103.1 fL (83.0-100.0) H 03/10/19 03:39 MCHC 29.8 g/dL (31.6-35.5) L 03/10/19 03:39 RDW 14.9 % (11.5-14.5) H 03/06/19 00:33 Hypochromasia Present (Not Present) A 03/10/19 03:39 PT 13.2 Seconds (9.4-12.1) H 03/06/19 00:33 ABG pH 7.21 pH Units (7.32-7.45) L 03/08/19 12:12 ABG pCO2 115 mmHg (35-45) H* 03/08/19 12:12 ABG pO2 83 mmHg (85-104) L 03/08/19 12:12 ABG HCO3 46 mEq/L (21-27) H 03/08/19 12:12 ABG Total CO2 50 mEq/L (20-26) H 03/08/19 12:12 ABG O2 Saturation 92 % (95-98) L 03/08/19 12:12 ABG Base Excess 12 mEq/L (-2 to 3) H 03/08/19 12:12 Potassium 5.5 mEq/L (3.5-5.1) H 03/08/19 05:40 Chloride 93 mEq/L (98-107) L 03/10/19 03:39 Carbon Dioxide 43 mEq/L (23-29) H* 03/10/19 03:39 BUN 23 mg/dL (6-20) H 03/10/19 03:39 BUN/Creatinine Ratio 28 (6-26) H 03/08/19 05:40 Glucose 251 mg/dL (70-105) H 03/10/19 03:39 POC Glucose 229 mg/dL (70-99) H 03/10/19 08:30 Hemoglobin A1c 10.0 % (-5.6) H 03/06/19 00:33 Calculated Osmolality 302 (280-300) H 03/10/19 03:39 Calcium 8.3 mg/dL (8.6-10.3) L 03/10/19 03:39 AST 12 Units/L (13-39) L 03/06/19 00:33 Serum Total Protein 6.1 g/dL (6.4-8.9) L 03/06/19 00:33 Albumin 3.2 g/dL (3.5-5.7) L 03/06/19 00:33 - Clinical Findings Intake & Output: Intake & Output 03/09/19 03/10/19 03/10/19 23:59 07:59 15:59 Intake Total 200 / 200 200 / 200 0 / 200 Output Total 400 / 2004 Balance -200 / -1805 200 / 200 0 / 200 Weight 219.5 kg Consult Discharge Plan - Plan Referrals: Jo Mcmahon, [facility] OPERATOR HELPER [Advanced Practice Nurse] - 03/16/19 12:45 pm <TroyKylers W - Last Filed: 03/10/19 12:08> Date of Encounter: 03/10/19 Assessment and Plan (1) Acute and chronic respiratory failure ([id number]) Current Visit: Yes Status: Acute Qualifiers: Respiratory failure complication: hypoxia and hypercapnia Qualified Code(s): J96.21 - Acute and chronic respiratory failure with hypoxia; J96.22 - Acute and chronic respiratory failure with hypercapnia (2) Atrial flutter with rapid ventricular response Current Visit: Yes Status: Acute (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 (4) Obesity hypoventilation syndrome Current Visit: Yes Status: Chronic (5) COPD (chronic obstructive pulmonary disease) Current Visit: Yes Status: Acute Qualifiers: Emphysema type: unspecified Qualified Code(s): J43.9 - Emphysema, unspecified (6) CHF exacerbation Current Visit: Yes Status: Acute Qualifiers: Heart failure type: diastolic Qualified Code(s): I50.33 - Acute on chronic diastolic (congestive) heart failure Objective PUL Vital signs: Last Vital Signs Temp 98.3 F 03/10/19 11:53 Pulse 105 03/10/19 11:53 Resp 18 03/10/19 11:53 BP 109/64 03/10/19 11:53 Pulse Ox 90 03/10/19 11:53 Ventilator Settings Ventilator Settings: Ventilator Settings, Last 8 Hours Ventilator Tidal Volume 500 Setting Ventilator Tidal Volume 500 Setting Ventilator Tidal Volume 500 Setting Ventilator Respiratory Rate 16 Setting Ventilator Respiratory Rate 16 Setting Ventilator Respiratory Rate 16 Setting Actual Respiratory Rate 16 Actual Respiratory Rate 16 Actual Respiratory Rate 16 Positive End Expiratory 5 Pressure Positive End Expiratory 5 Pressure Positive End Expiratory 5 Pressure Peak Inspiratory Airway 27 Pressure Peak Inspiratory Airway 27 Pressure Peak Inspiratory Airway 27 Pressure Results - Laboratory Findings CBC and BMP: 03/10/19 03:39 03/10/19 03:39 ABG ABG pH 7.21 pH Units (7.32-7.45) L 03/08/19 12:12 ABG pCO2 115 mmHg (35-45) H* 03/08/19 12:12 ABG pO2 83 mmHg (85-104) L 03/08/19 12:12 ABG O2 Saturation 92 % (95-98) L 03/08/19 12:12 PT/INR, D-dimer PT 13.2 Seconds (9.4-12.1) H 03/06/19 00:33 Abnormal lab findings: Abnormal lab results MCV 103.1 fL (83.0-100.0) H 03/10/19 03:39 MCHC 29.8 g/dL (31.6-35.5) L 03/10/19 03:39 RDW 14.9 % (11.5-14.5) H 03/06/19 00:33 Hypochromasia Present (Not Present) A 03/10/19 03:39 PT 13.2 Seconds (9.4-12.1) H 03/06/19 00:33 ABG pH 7.21 pH Units (7.32-7.45) L 03/08/19 12:12 ABG pCO2 115 mmHg (35-45) H* 03/08/19 12:12 ABG pO2 83 mmHg (85-104) L 03/08/19 12:12 ABG HCO3 46 mEq/L (21-27) H 03/08/19 12:12 ABG Total CO2 50 mEq/L (20-26) H 03/08/19 12:12 ABG O2 Saturation 92 % (95-98) L 03/08/19 12:12 ABG Base Excess 12 mEq/L (-2 to 3) H 03/08/19 12:12 Potassium 5.5 mEq/L (3.5-5.1) H 03/08/19 05:40 Chloride 93 mEq/L (98-107) L 03/10/19 03:39 Carbon Dioxide 43 mEq/L (23-29) H* 03/10/19 03:39 BUN 23 mg/dL (6-20) H 03/10/19 03:39 BUN/Creatinine Ratio 28 (6-26) H 03/08/19 05:40 Glucose 251 mg/dL (70-105) H 03/10/19 03:39 POC Glucose 229 mg/dL (70-99) H 03/10/19 08:30 Hemoglobin A1c 10.0 % (-5.6) H 03/06/19 00:33 Calculated Osmolality 302 (280-300) H 03/10/19 03:39 Calcium 8.3 mg/dL (8.6-10.3) L 03/10/19 03:39 AST 12 Units/L (13-39) L 03/06/19 00:33 Serum Total Protein 6.1 g/dL (6.4-8.9) L 03/06/19 00:33 Albumin 3.2 g/dL (3.5-5.7) L 03/06/19 00:33 - Clinical Findings Intake & Output: Intake & Output 03/09/19 03/10/19 03/10/19 23:59 07:59 15:59 Intake Total 200 / 200 200 / 200 0 / 200 Output Total 400 / 2305 1000 / 1600 600 / 1600 Balance -200 / -2105 -800 / -1400 -600 / -1400 Weight 219.5 kg - Attending Attestation I examined this patient and my medical decision-making was reviewed with the Resident Physician. I agree with the documented findings, disposition and treatment plan as described except to the extent set forth below. We independently had [id number] contact with the patient Patient seen and examined at bedside Labs, radiology, chart personally reviewed. Impression/Recs: Status post trach change she has a cuff trach now. Can do trach collar during the day and transition to pressure support at night likely will need to strategy indefinitely as the patient is an coupled from tracheostomy. For this he will need home ventilator unit (such as Trilogy) and will need to be qualified and ar ranged through case management. Indication would be chronic hypoxic hypercapnic failure and s/t COPD and obesity hypoventilation syndrome Cardiology continues to follow heart rate is better controlled today from A. fib standpoint. He will need continued diuresis - indication for the home ventilato r would be
--- NOTE | 2019-03-10 14:37 | Cardiology Progress Note ---
Date of Encounter: 03/10/19 Time of Encounter: 11:00 Assessment and Plan (1) Atrial flutter with rapid ventricular response Current Visit: Yes Status: Acute Per cardiology: -Atrial flutter with RVR. Patient has a history of atrial flutter and on eliquis, of note, BMI 77. However, patient would be a poor candidate for coumadin due to transportation issues. History of cardioversion one year ago at [facility], we will order records. -Recent poor cardiology follow-up due to transportation issues. Patient presents in respiratory distress and hypoxia due to oxygen problems at home. -He is currently on amiodarone drip HR still 90-130 bpm. -Was given IV digoxin yesterday. -Plan had been for ROSHAN/DCCV, however HR is now controlled. Average HR previous 12 hours noted to be 91. -Discussed and reviewed with , will add oral amiodarone. Continue BB. -Will repeat TTE now that HR controlled. (2) Acute and chronic respiratory failure ([id number]) Current Visit: Yes Status: Acute Per cardiology: -Acute on chronic respiratory failure. Worsening CO2, hyperkalemia. Multifactoral with COPD, severe DANIEL, and possible CHF. -Pulmonology consulted. -Continue diuresis for pulmonary edema. Strict I&O and daily weight. Low sodium diet recommended. -TTE uninterruptible. Will repeat Qualifiers: Respiratory failure complication: hypoxia and hypercapnia Qualified Code(s): J96.21 - Acute and chronic respiratory failure with hypoxia; J96.22 - Acute and chronic respiratory failure with hypercapnia (3) CHF exacerbation Current Visit: Yes Status: Acute Per cardiology: -acute on chronic CHF, reports NYHA class IV symptoms. Unable to assess LV function to determine if diastolic or systolic. Likely diastolic. -Continue IV diuresis. Currently net negative 9.9L. Recommend 1500ml fluid restriction. -Continue IV diuresis, monitor renal function closely. -CHF education reinforced with patient. -Strict i/os, fluid restriction, daily weights. Qualifiers: Heart failure type: diastolic Qualified Code(s): I50.33 - Acute on chronic diastolic (congestive) heart failure Discussion w patient/family: The assessment and plan as outlined above was discussed with the patient and/or family members who expressed understanding and agreement. All questions were answered. Thank you for involving us in the care of your patient. Please call with any questions. Discussed and reviewed with . Subjective Principal diagnosis: Atrial flutter, CHF, respiratory failure Interval history: Patient reports breathing improved today. Reports palpitations, however states about baseline. Objective Vital Signs, Last 4 Hours Temp Pulse Resp BP Pulse Ox 03/10/19 11:53 98.3 F 105 18 109/64 90 General: Other (Able to mouth words. Has tracheostomy, on ventilator. ) HEENT: Atraumatic, Normocephaly, Mucus Membranes Moist Neck: No JVD, Normal carotid pulses Cardiac: Normal S1 and S2, No Murmur, Other (Regularly irregular) Lungs: Other (Lung sounds diminished throughout. ) Neuro: Alert and responsive, No focal deficits noted Abdomen: Soft, Non-Tender Skin: No rashes noted on visualized skin Musculoskeletal: No Chest Wall Tenderness Extremities: No Clubbing, No Cyanosis, Normal Pulses, Other (Bilateral lower extremity edema noted. Non-pitting. ) Results 03/10/19 03:39 03/10/19 03:39 Lab Results Active Medications Amiodarone HCl (Cordarone) 400 mg PO DAILY [facility] Stop: 09/09/19 13:32 Apixaban (Eliquis) 5 mg PO BID [facility]; Protocol Stop: 09/05/19 09:01 Last Admin: 03/10/19 08:01 Dose: 5 mg Documented by: Atorvastatin Calcium (Lipitor) 80 mg PO HS [facility] Stop: 09/05/19 21:01 Last Admin: 03/09/19 21:10 Dose: 80 mg Documented by: Dextrose/Water (Dextrose 50% (Syg)) 25 ml IVP AD PRN PRN Reason: Hypoglycemia Stop: 09/05/19 00:16 Diazepam (Valium) 5 mg PO BID [facility] Stop: 09/05/19 09:01 Last Admin: 03/10/19 08:01 Dose: 5 mg Documented by: Escitalopram Oxalate (Lexapro) 10 mg PO DAILY [facility] Stop: 09/06/19 09:01 Last Admin: 03/10/19 08:01 Dose: 10 mg Documented by: Furosemide (Lasix) 20 mg IVP BID [facility] Stop: 09/07/19 21:01 Last Admin: 03/10/19 08:05 Dose: 20 mg Documented by: Gabapentin (Neurontin) 800 mg PO QID [facility] Stop: 09/05/19 09:01 Last Admin: 03/10/19 12:10 Dose: 800 mg Documented by: Glucagon (Glucagen) 1 mg IM ONCE PRN PRN Reason: Hypoglycemia Stop: 09/05/19 00:16 Glucose (Gluctose) 15 gm PO ONCE PRN PRN Reason: Hypoglycemia Stop: 09/05/19 00:16 Glucose (Gluctose) 30 gm PO ONCE PRN PRN Reason: Hypoglycemia Stop: 09/05/19 00:16 Dextrose (Dextrose 5%) 1,000 mls @ 100 mls/hr IVC .Q10H PRN PRN Reason: HYPOGLYCEMIA Stop: 09/05/19 00:16 Insulin Detemir (Levemir) 40 unit SQ BID [facility] Stop: 09/08/19 09:01 Last Admin: 03/10/19 08:09 Dose: 40 unit Documented by: Insulin Human Lispro (Humalog) 0 units SQ TIDAC [facility]; Protocol Stop: 09/05/19 07:31 Last Admin: 03/10/19 12:09 Dose: 8 units Documented by: Insulin Human Lispro (Humalog) 0 units SQ HS [facility]; Protocol Stop: 09/05/19 21:01 Last Admin: 03/09/19 21:08 Dose: 5 unit Documented by: Insulin Human Lispro (Humalog) 13 units SQ TIDWM [facility] Stop: 09/08/19 08:01 Last Admin: 03/10/19 12:08 Dose: 13 units Documented by: Levalbuterol HCl (Xopenex) 0.63 mg IH [id number] SCH Stop: 09/08/19 16:01 Last Admin: 03/10/19 10:18 Dose: 0.63 mg Documented by: Loratadine (Claritin) 10 mg PO DAILY [facility]; Protocol Stop: 09/05/19 09:01 Last Admin: 03/10/19 08:01 Dose: 10 mg Documented by: Magnesium Oxide (Mag-Ox) 400 mg PO TID [facility] Stop: 09/05/19 09:01 Last Admin: 03/10/19 08:01 Dose: 400 mg Documented by: Metoprolol Tartrate (Lopressor) 50 mg PO Q6HR [facility] Stop: 09/05/19 06:01 Last Admin: 03/10/19 12:10 Dose: 50 mg Documented by: Naloxone HCl (Narcan) 0.4 mg IVP Q2MPRN PRN PRN Reason: SEE COMMENTS Stop: 09/05/19 00:11 Nicotine (Nicoderm) 21 mg TD DAILY [facility]; Protocol Stop: 09/05/19 03:01 Last Admin: 03/10/19 07:57 Dose: 21 mg Documented by: Omeprazole (Prilosec) 20 mg PO 0630 [facility] Stop: 09/05/19 06:31 Last Admin: 03/10/19 05:37 Dose: Not Given Documented by: Oxycodone HCl (Roxicodone) 10 mg PO BID PRN; Protocol PRN Reason: Severe Pain Stop: 09/05/19 13:27 Last Admin: 03/10/19 08:03 Dose: 10 mg Documented by: Prednisone (Prednisone) 30 mg PO DAILY [facility] Stop: 09/07/19 09:01 Last Admin: 03/10/19 08:42 Dose: 30 mg Documented by: Laboratory Tests 03/10/19 03/10/19 03:39 03:39 Hgb 13.0 Creatinine 0.95 - Imaging and Cardiology Chest Xray: report reviewed Echo: pending - EKG Interpretation EKG results cardiology: other (Telemetry reviewed with average HR previous 12 hours noted to be 91, a.flutter. PVCs noted.) Consult Discharge Plan - Plan Referrals: Jo Mcmahon, COOK HELPER DESSERT [Advanced Practice Nurse] - 03/16/19 12:45 pm
[2019-03-10] MEDS: *HR* Amiodarone 200 MG TABLET PO SCH (15:05)
[2019-03-10] MEDS ORDERED: Acetaminophen 325 MG TABLET PO PRN (17:03)
[2019-03-10] MEDS ORDERED: Perflutren Lipid Microsphere 1.3 ML in 0.9 % Sodium Chloride 8.7 ML IVP ONE (19:16)
--- NOTE | 2019-03-10 19:36 | Internal Med Progress Note ---
Hospitalist Progress Note - Encounter Date of Encounter: 03/10/19 Time of Encounter: 11:30 - Subjective Interval History: Mr Alexandra is scheduled for ROSHAN and direct cardioversion today. He is a girl friend Karen who can be reached at [phone] stated that they are homeless and was just informed that they were not welcomed back at home they were living prior to this hospital stay. Discussed discharge plan with the patient needed likely skilled facility given his trach / ventilator needs. Karen stated that she will look into housing options but appears reluctant. Patient is agreeable to ECF placement for snf and rehab. He communicates via clip board. GEN: Denies fever, chills or malaise HEENT: Denies headache blurriness, or dysphagia RESP: admits to SOB denies cough CV: Denies chest pain or palpitations GI: Denies Nausea, vomiting, diarrhea or constipation Reviewed current in hospital medications with modifications see orders Reviewed Routine labs - Exam Vitals: Temp Pulse Resp BP Pulse Ox 98.4 F 113 18 115/68 90 03/10/19 16:42 03/10/19 16:42 03/10/19 16:42 03/10/19 16:42 03/10/19 16:42 Exam: GEN: Morbidly obese male NAD, A&O x 3, pleasant and conversant via clip board SKIN: [place] warm acyanotic not jaundice Neck: Trach noted HEART: Distant secondary to body habitus appears irregular no murmurs LUNGS: Distant secondary to body habitus appears CTA no wheeze with minimal c rackles, overall non labored ABDOMEN; obese Soft, non tender or distended, BS x 4 normactive EXT: Trace LE edema, Pedal pulses 1+, radial pulses 2+ PSYCH: Mood and affect is appropriate - Assessment and Plan (1) Diabetes Current Visit: Yes Status: Chronic Assessment and Plan: A1c of 10, continue basal short-acting insulin. POC ranges 200s to 300s would increase basal insulin (2) Atrial flutter with rapid ventricular response Current Visit: Yes Status: Acute Assessment and Plan: Scheduled for ROSHAN cardioversion appreciate cardiology input. on apixaban, appears rate controlled (3) CHF exacerbation Current Visit: Yes Status: Acute Assessment and Plan: patient with a total negative fluid balance of 12.7 litters, switch IV Lasix to by mouth daily continue strict intake and output plus daily weight. (4) History of DVT in adulthood Current Visit: Yes Status: Chronic Assessment and Plan: c/w apixaban 5mg/PO BID (5) Hypertension Current Visit: Yes Status: Chronic Assessment and Plan: Normotensive continue current management (6) Hyperlipidemia Current Visit: Yes Status: Chronic Assessment and Plan: On atorvastatin 80 mg by mouth at bedtime. (7) GERD (gastroesophageal reflux disease) Current Visit: Yes Status: Chronic Assessment and Plan: Continue omeprazole 20 mg by mouth daily. (8) Tracheostomy in place Current Visit: Yes Status: Chronic Assessment and Plan: Pulmonology recommended outpatient f/u with the ENT who placed the trach. (9) COPD exacerbation Current Visit: Yes Status: Suspected Assessment and Plan: Improving continue DuoNeb (10) Acute and chronic respiratory failure ([id number]-[id number]) Current Visit: Yes Status: Acute Assessment and Plan: Likely multifactorial his morbid obesity, obesity hypoventilation syndrome, DANIEL patient likely would need short-term ventilatory support plan is to discharge to ECF (11) Obesity hypoventilation syndrome Current Visit: Yes Status: Chronic Assessment and Plan: Patient will likely need short-term ventilatory support (12) History of smoking Current Visit: Yes Status: Chronic Assessment and Plan: Continue to encourage cessation DVT Prophylaxis: On apixaban - Time Spent with Patient Total time spent is greater than 50% in coordination of care (as documented) at patient's floor/unit and/or counseling patient: Internal Medicine: Result - Labs CBC & Chem 7: 03/10/19 03:39 03/10/19 03:39 Labs: Short CBC 03/10/19 Range/Units 03:39 WBC 7.4 (4.3-11.1) K/mcL Hgb 13.0 (12.9-16.9) g/dL Hct 43.6 (37.5-50.1) % Plt Count 178 (140-400) K/mcL Neutrophils # 5.3 (1.6-8.9) K/mcL BMP 03/10/19 03:39 Sodium 140 Potassium 4.6 Chloride 93 L Carbon Dioxide 43 H* BUN 23 H Creatinine 0.95 Glucose 251 H Calcium 8.3 L - ABG Interpretation ABG results: ABG ABG pH 7.21 pH Units (7.32-7.45) L 03/08/19 12:12 ABG pCO2 115 mmHg (35-45) H* 03/08/19 12:12 ABG pO2 83 mmHg (85-104) L 03/08/19 12:12 ABG O2 Saturation 92 % (95-98) L 03/08/19 12:12 PT/INR, D-dimer PT 13.2 Seconds (9.4-12.1) H 03/06/19 00:33 Consult Discharge Plan - Plan Referrals: Jo Mcmahon, DIRECTOR TRADE [Advanced Practice Nurse] - 03/16/19 12:45 pm (1) Diabetes Qualifiers: Diabetes mellitus type: type 2 Diabetes mellitus it application development manager insulin use: with it application development manager use Diabetes mellitus complication status: without complication Qualified Code(s): E11.9 - Type 2 diabetes mellitus without complications; Z79.4 - humane officer (current) use of insulin (3) CHF exacerbation Qualifiers: Heart failure type: diastolic Qualified Code(s): I50.33 - Acute on chronic diastolic (congestive) heart failure (5) Hypertension Qualifiers: Hypertension type: essential hypertension Qualified Code(s): I10 - Essential (primary) hypertension (6) Hyperlipidemia Qualifiers: Hyperlipidemia type: unspecified Qualified Code(s): E78.5 - Hyperlipidemia, unspecified (7) GERD (gastroesophageal reflux disease) Qualifiers: Esophagitis presence: esophagitis presence not specified Qualified Code(s): K21.9 - Gastro-esophageal reflux disease without esophagitis (10) Acute and chronic respiratory failure (cqhmn-sm-[id number]) Qualifiers: Respiratory failure complication: hypoxia and hypercapnia Qualified Code(s): J96.21 - Acute and chronic respiratory failure with hypoxia; J96.22 - Acute and chronic respiratory failure with hypercapnia
[2019-03-11] MEDS: 0.9 % Sodium Chloride 1,000 ML IVC SCH (03:29)
[2019-03-11] MEDS: Levalbuterol Neb 0.63 MG/3 ML IH SCH ×4 (03:51→22:17)
--- NOTE | 2019-03-11 08:34 | Pulmonology Progress Note ---
<Tae Clark M - Last Filed: 03/11/19 11:27> Date of Encounter: 03/11/19 Time of Encounter: 09:00 Assessment and Plan (1) Acute and chronic respiratory failure ([id number]-qi-fnbtgyk) Current Visit: Yes Status: Acute Patient was noted to be more somnolent on exam today. Repeat EKG ABG revealed worsening hypercapnia. Patient does have a history of chronic respiratory failure with hypercapnia secondary to obesity hypoventilation syndrome. However, patient respiratory status has acutely worsened from day before with increasing CO2 and decreasing pO2. Chest x-ray 03/06/19 revealed significant cardiomegaly with vascular congestion and bilateral pulmonary opacities technical service representative of pulmonary edema. Suspect patient suffering from decreased gas exchange and VQ mismatch secondary to alveolar space filling as a result of an acutely decompensated exacerbation of congestive heart failure. Patient had exchange of Tracheostomy with cuff yesterday by ENT. Plan: -Patient will need continued pressure support on vent at night and while sleeping during day -May deflate cuff and continue with O2 supplementation during daytime to allow for breaks as tolerated -Continue bronchodilators, currently duonebs QID -Suspect patient's significant fluid overload is contributing to his poor respiratory status, decreased gas exchange, severe hypercapnia -Recommend continued diuresis, blood pressure/heart rate will likely improve secondary to this, may add albumin as needed -Recommend continuing with IV Diuresis at this time -Patient will need Triology device on discharge but is currently homeless, patient will need ECF when stable for discharge Qualifiers: Respiratory failure complication: hypoxia and hypercapnia Qualified Code(s): J96.21 - Acute and chronic respiratory failure with hypoxia; J96.22 - Acute and chronic respiratory failure with hypercapnia (2) CHF exacerbation Current Visit: Yes Status: Acute Patient is in an acute exacerbation of CHF Continue with 1.5 L fluid restriction Continue with diuresis as tolerable by kidney function, suspect blood pressure and respiratory status will improve secondary to this Qualifiers: Heart failure type: diastolic Qualified Code(s): I50.33 - Acute on chronic diastolic (congestive) heart failure (3) Obesity hypoventilation syndrome Current Visit: Yes Status: Chronic Morbidly obese individual with chronic hypercapnic respiratory failure suffers from obesity hypoventilation syndrome. Patient currently on cardiac diet, re commend instructions regarding lifestyle modification and low sodium diet moving forward. Rest of plan for hypoventilation as above. Subjective Principal diagnosis: Atrial flutter, CHF, respiratory failure Interval history: Patient seen and examined at bedside this morning. Patient tracheostomy replaced yesterday with cuff. Tolerating Pressure support on vent overnight without complaints. Continues to be profoundly fluid overloaded on exam today but reports very good urine output yesterday. Patient remains in AFib, HR was co ntrolled yesterday and Cardioversion was cancelled, however today patients HR is back in the 110's. Kidney function stable. Lungs with course breath sounds but no wheeze or crackles. Denies cough. Objective PUL Vital signs: Last Vital Signs Temp 98.6 F 03/11/19 07:53 Pulse 128 03/11/19 07:53 Resp 19 03/11/19 07:53 BP 96/53 03/11/19 06:50 Pulse Ox 90 03/11/19 07:53 Gen.: Morbidly obese. Vitals noted. A. fib RVR. HEENT: Anicteric sclera, moist conjunctiva, mucous murmurs moist Neck: Tracheostomy with cuff in place, functioning properly on pressure support currently CV: Irregular rate, irregular rhythm, no murmurs, gallops, rubs, heart rate 115 on exam Respiratory: Coarse breath sounds bilaterally, no wheezing, rhonchi, rales appreciated Abdomen: Significantly distended secondary to profound fluid overload, nontender Extremities: +3 pitting edema bilaterally pretibial noted, no rashes, cyanosis appreciated Ventilator Settings Ventilator Settings: Ventilator Settings, Last 8 Hours Actual Respiratory Rate 13 Positive End Expiratory 5 Pressure Peak Inspiratory Airway 20 Pressure Results - Laboratory Findings CBC and BMP: 03/10/19 03:39 03/10/19 03:39 ABG ABG pH 7.21 pH Units (7.32-7.45) L 03/08/19 12:12 ABG pCO2 115 mmHg (35-45) H* 03/08/19 12:12 ABG pO2 83 mmHg (85-104) L 03/08/19 12:12 ABG O2 Saturation 92 % (95-98) L 03/08/19 12:12 PT/INR, D-dimer PT 13.2 Seconds (9.4-12.1) H 03/06/19 00:33 Abnormal lab findings: Abnormal lab results MCV 103.1 fL (83.0-100.0) H 03/10/19 03:39 MCHC 29.8 g/dL (31.6-35.5) L 03/10/19 03:39 RDW 14.9 % (11.5-14.5) H 03/06/19 00:33 Hypochromasia Present (Not Present) A 03/10/19 03:39 PT 13.2 Seconds (9.4-12.1) H 03/06/19 00:33 ABG pH 7.21 pH Units (7.32-7.45) L 03/08/19 12:12 ABG pCO2 115 mmHg (35-45) H* 03/08/19 12:12 ABG pO2 83 mmHg (85-104) L 03/08/19 12:12 ABG HCO3 46 mEq/L (21-27) H 03/08/19 12:12 ABG Total CO2 50 mEq/L (20-26) H 03/08/19 12:12 ABG O2 Saturation 92 % (95-98) L 03/08/19 12:12 ABG Base Excess 12 mEq/L (-2 to 3) H 03/08/19 12:12 Potassium 5.5 mEq/L (3.5-5.1) H 03/08/19 05:40 Chloride 93 mEq/L (98-107) L 03/10/19 03:39 Carbon Dioxide 43 mEq/L (23-29) H* 03/10/19 03:39 BUN 23 mg/dL (6-20) H 03/10/19 03:39 BUN/Creatinine Ratio 28 (6-26) H 03/08/19 05:40 Glucose 251 mg/dL (70-105) H 03/10/19 03:39 POC Glucose 284 mg/dL (70-99) H 03/10/19 19:59 Hemoglobin A1c 10.0 % (-5.6) H 03/06/19 00:33 Calculated Osmolality 302 (280-300) H 03/10/19 03:39 Calcium 8.3 mg/dL (8.6-10.3) L 03/10/19 03:39 AST 12 Units/L (13-39) L 03/06/19 00:33 Serum Total Protein 6.1 g/dL (6.4-8.9) L 03/06/19 00:33 Albumin 3.2 g/dL (3.5-5.7) L 03/06/19 00:33 - Clinical Findings Intake & Output: Intake & Output 03/10/19 03/11/19 03/11/19 23:59 07:59 15:59 Output Total 600 / 2700 Balance -600 / -2500 Consult Discharge Plan - Plan Referrals: Jo Mcmahon, SHIPPER RECEIVER [Advanced Practice Nurse] - 03/16/19 12:45 pm <Jeovany Simmons - Last Filed: 03/11/19 13:02> Date of Encounter: 03/11/19 Assessment and Plan (1) Acute and chronic respiratory failure ([id number]) Current Visit: Yes Status: Acute Qualifiers: Respiratory failure complication: hypoxia and hypercapnia Qualified Code(s): J96.21 - Acute and chronic respiratory failure with hypoxia; J96.22 - Acute and chronic respiratory failure with hypercapnia (2) Atrial flutter with rapid ventricular response Current Visit: Yes Status: Acute (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 (4) Obesity hypoventilation syndrome Current Visit: Yes Status: Chronic (5) COPD (chronic obstructive pulmonary disease) Current Visit: Yes Status: Acute Qualifiers: Emphysema type: unspecified Qualified Code(s): J43.9 - Emphysema, unspecified (6) CHF exacerbation Current Visit: Yes Status: Acute Qualifiers: Heart failure type: diastolic Qualified Code(s): I50.33 - Acute on chronic diastolic (congestive) heart failure Objective PUL Vital signs: Last Vital Signs Temp 97.1 F L 03/11/19 11:41 Pulse 111 03/11/19 11:41 Resp 18 03/11/19 11:41 BP 91/48 03/11/19 11:41 Pulse Ox 91 03/11/19 11:41 Results - Laboratory Findings CBC and BMP: 03/10/19 03:39 03/10/19 03:39 ABG ABG pH 7.21 pH Units (7.32-7.45) L 03/08/19 12:12 ABG pCO2 115 mmHg (35-45) H* 03/08/19 12:12 ABG pO2 83 mmHg (85-104) L 03/08/19 12:12 ABG O2 Saturation 92 % (95-98) L 03/08/19 12:12 PT/INR, D-dimer PT 13.2 Seconds (9.4-12.1) H 03/06/19 00:33 Abnormal lab findings: Abnormal lab results MCV 103.1 fL (83.0-100.0) H 03/10/19 03:39 MCHC 29.8 g/dL (31.6-35.5) L 03/10/19 03:39 RDW 14.9 % (11.5-14.5) H 03/06/19 00:33 Hypochromasia Present (Not Present) A 03/10/19 03:39 PT 13.2 Seconds (9.4-12.1) H 03/06/19 00:33 ABG pH 7.21 pH Units (7.32-7.45) L 03/08/19 12:12 ABG pCO2 115 mmHg (35-45) H* 03/08/19 12:12 ABG pO2 83 mmHg (85-104) L 03/08/19 12:12 ABG HCO3 46 mEq/L (21-27) H 03/08/19 12:12 ABG Total CO2 50 mEq/L (20-26) H 03/08/19 12:12 ABG O2 Saturation 92 % (95-98) L 03/08/19 12:12 ABG Base Excess 12 mEq/L (-2 to 3) H 03/08/19 12:12 Potassium 5.5 mEq/L (3.5-5.1) H 03/08/19 05:40 Chloride 93 mEq/L (98-107) L 03/10/19 03:39 Carbon Dioxide 43 mEq/L (23-29) H* 03/10/19 03:39 BUN 23 mg/dL (6-20) H 03/10/19 03:39 BUN/Creatinine Ratio 28 (6-26) H 03/08/19 05:40 Glucose 251 mg/dL (70-105) H 03/10/19 03:39 POC Glucose 333 mg/dL (70-99) H 03/11/19 07:55 Hemoglobin A1c 10.0 % (-5.6) H 03/06/19 00:33 Calculated Osmolality 302 (280-300) H 03/10/19 03:39 Calcium 8.3 mg/dL (8.6-10.3) L 03/10/19 03:39 AST 12 Units/L (13-39) L 03/06/19 00:33 Serum Total Protein 6.1 g/dL (6.4-8.9) L 03/06/19 00:33 Albumin 3.2 g/dL (3.5-5.7) L 03/06/19 00:33 - Clinical Findings Intake & Output: Intake & Output 03/10/19 03/11/19 03/11/19 23:59 07:59 15:59 Intake Total 240 / 240 Output Total 600 / 2700 Balance -600 / -2500 240 / 240 - Attending Attestation I examined this patient and my medical decision-making was reviewed with the Resident Physician. I agree with the documented findings, disposition and treatment plan as described except to the extent set forth below. We independently had [id number] contact with the patient Patient seen and examined at bedside Labs, radiology, chart personally reviewed. Impression/Recs: Continues to make progress. Would continue pressure support at night and he will need more aggressive diuresis I suspect he could benefit/tolerate 1to 2 L a day net negative for the next week or so based upon kidney function. Encourage use of pressure support ventilation for a total of 12-16 hrs. a day. Need to arrange noninvasive ventilation for home. Social service consult for homelessness
[2019-03-11] MEDS: Insulin LISPRO 300 UNITS/3 ML VIAL SQ SCH ×7 (08:45→20:26)
[2019-03-11] MEDS: Apixaban 5 MG TABLET PO SCH ×2 (08:46→20:25)
[2019-03-11] MEDS: Loratadine 10 MG TABLET PO SCH (08:46)
[2019-03-11] MEDS: Gabapentin 400 MG CAPSULE PO SCH ×4 (08:46→20:25)
[2019-03-11] MEDS: Magnesium Oxide 400 MG TABLET PO SCH ×3 (08:47→20:26)
[2019-03-11] MEDS: *HR* Amiodarone 200 MG TABLET PO SCH (08:47)
[2019-03-11] MEDS: Nicotine 21 MG PATCH.TD24 TD SCH (08:47)
[2019-03-11] MEDS: diazePAM 5 MG TABLET PO SCH ×2 (08:47→20:25)
[2019-03-11] MEDS: predniSONE 10 MG TABLET PO SCH (08:47)
[2019-03-11] MEDS ORDERED: Furosemide 40 MG TABLET PO SCH (09:00)
[2019-03-11] MEDS: Insulin DETEMIR 100 UNIT/ML X5UNITS SQ SCH ×2 (09:01→20:27)
[2019-03-11] MEDS: *HR* OxyCODONE Immed Rel 5 MG TABLET PO PRN ×2 (09:10→18:23)
--- NOTE | 2019-03-11 13:03 | Cardiology Progress Note ---
Date of Encounter: 03/11/19 Time of Encounter: 11:00 Assessment and Plan (1) Atrial flutter with rapid ventricular response Current Visit: Yes Status: Acute Per cardiology: -Atrial flutter with RVR. Patient has a history of atrial flutter and on eliquis, of note, BMI 77. However, patient would be a poor candidate for coumadin due to transportation issues. History of cardioversion one year ago at [facility], we will order records. -Recent poor cardiology follow-up due to transportation issues. Patient presents in respiratory distress and hypoxia due to oxygen problems at home. -He is currently on amiodarone po and BB. -Was given IV digoxin 03/10/19. -Average HR previous 12 hours noted to be 103, a.flutter. -Continue current medical therapy. Will continue to monitor HR. (2) Acute and chronic respiratory failure ([id number]) Current Visit: Yes Status: Acute Per cardiology: -Acute on chronic respiratory failure. Worsening CO2, hyperkalemia. Multifactoral with COPD, severe DANIEL, and possible CHF. -Pulmonology consulted. -Continue diuresis for pulmonary edema. Strict I&O and daily weight. Low sodium diet recommended. Qualifiers: Qualified Code(s): J96.21 - Acute and chronic respiratory failure with hypoxia; J96.22 - Acute and chronic respiratory failure with hypercapnia (3) CHF exacerbation Current Visit: Yes Status: Acute Per cardiology: -acute on chronic CHF, reports NYHA class IV symptoms. Diastolic CHF. -Continue IV diuresis. Currently net negative 12.4L. Recommend 1500ml fluid restriction. -TTE with poor study due to body habitus, however LV function appears grossly normal. -Remains volume overloaded. -Continue IV diuresis, monitor renal function closely. -CHF education reinforced with patient. -Strict i/os, fluid restriction, daily weights. Qualifiers: Qualified Code(s): I50.33 - Acute on chronic diastolic (congestive) heart failure Discussion w patient/family: The assessment and plan as outlined above was discussed with the patient and/or family members who expressed understanding and agreement. All questions were answered. Thank you for involving us in the care of your patient. Please call with any questions. Discussed and reviewed with Subjective Principal diagnosis: Atrial flutter, CHF, respiratory failure Interval history: Patient reports breathing improved today. Reports palpitations, however states about baseline. Reports discomfort around trach site. Objective Vital Signs, Last 4 Hours Temp Pulse Resp BP Pulse Ox 03/11/19 11:41 97.1 F L 111 18 91/48 91 03/11/19 09:44 20 91/48 94 General: Other (Able to mouth words) HEENT: Atraumatic, Normocephaly, Mucus Membranes Moist Neck: No JVD, Normal carotid pulses Cardiac: Normal S1 and S2, No Murmur, Other (Regularly irregular) Lungs: Other (Lung sounds coarse throughout. ) Neuro: Alert and responsive, No focal deficits noted Abdomen: Soft, Non-Tender Skin: No rashes noted on visualized skin Musculoskeletal: No Chest Wall Tenderness Extremities: No Clubbing, No Cyanosis, Normal Pulses, Other (Bilateral lower ext remity edema noted. ) Results 03/10/19 03:39 03/10/19 03:39 Vital Signs Active Medications Acetaminophen (Tylenol) 650 mg PO Q6HR PRN PRN Reason: Fever Stop: 09/09/19 17:04 Last Admin: 03/10/19 17:14 Dose: 650 mg Documented by: Amiodarone HCl (Cordarone) 400 mg PO DAILY [facility] Stop: 09/09/19 13:32 Last Admin: 03/11/19 08:47 Dose: 400 mg Documented by: Apixaban (Eliquis) 5 mg PO BID [facility]; Protocol Stop: 09/05/19 09:01 Last Admin: 03/11/19 08:46 Dose: 5 mg Documented by: Atorvastatin Calcium (Lipitor) 80 mg PO HS [facility] Stop: 09/05/19 21:01 Last Admin: 03/10/19 20:56 Dose: 80 mg Documented by: Dextrose/Water (Dextrose 50% (Syg)) 25 ml IVP AD PRN PRN Reason: Hypoglycemia Stop: 09/05/19 00:16 Diazepam (Valium) 5 mg PO BID [facility] Stop: 09/05/19 09:01 Last Admin: 03/11/19 08:47 Dose: 5 mg Documented by: Escitalopram Oxalate (Lexapro) 10 mg PO DAILY [facility] Stop: 09/06/19 09:01 Last Admin: 03/11/19 08:47 Dose: 10 mg Documented by: Ferrous Sulfate (Ferrous Sulfate) 325 mg PO BIDWM [facility] Stop: 09/10/19 09:01 Furosemide (Lasix) 40 mg PO DAILY [facility] Stop: 09/10/19 09:01 Last Admin: 03/11/19 08:46 Dose: 40 mg Documented by: Gabapentin (Neurontin) 800 mg PO QID [facility] Stop: 09/05/19 09:01 Last Admin: 03/11/19 08:46 Dose: 800 mg Documented by: Glucagon (Glucagen) 1 mg IM ONCE PRN PRN Reason: Hypoglycemia Stop: 09/05/19 00:16 Glucose (Gluctose) 15 gm PO ONCE PRN PRN Reason: Hypoglycemia Stop: 09/05/19 00:16 Glucose (Gluctose) 30 gm PO ONCE PRN PRN Reason: Hypoglycemia Stop: 09/05/19 00:16 Dextrose (Dextrose 5%) 1,000 mls @ 100 mls/hr IVC .Q10H PRN PRN Reason: HYPOGLYCEMIA Stop: 09/05/19 00:16 Insulin Detemir (Levemir) 50 unit SQ BID [facility] Stop: 09/09/19 21:01 Last Admin: 03/11/19 09:01 Dose: 50 unit Documented by: Insulin Human Lispro (Humalog) 0 units SQ TIDAC [facility]; Protocol Stop: 09/05/19 07:31 Last Admin: 03/11/19 08:45 Dose: 10 units Documented by: Insulin Human Lispro (Humalog) 0 units SQ HS [facility]; Protocol Stop: 09/05/19 21:01 Last Admin: 03/10/19 21:01 Dose: 4 unit Documented by: Insulin Human Lispro (Humalog) 13 units SQ TIDWM [facility] Stop: 09/08/19 08:01 Last Admin: 03/11/19 08:48 Dose: 13 units Documented by: Levalbuterol HCl (Xopenex) 0.63 mg IH [id number] [facility] Stop: 09/08/19 16:01 Last Admin: 03/11/19 09:44 Dose: 0.63 mg Documented by: Loratadine (Claritin) 10 mg PO DAILY [facility]; Protocol Stop: 09/05/19 09:01 Last Admin: 03/11/19 08:46 Dose: 10 mg Documented by: Magnesium Oxide (Mag-Ox) 400 mg PO TID [facility] Stop: 09/05/19 09:01 Last Admin: 03/11/19 08:47 Dose: 400 mg Documented by: Metoprolol Tartrate (Lopressor) 50 mg PO Q6HR [facility] Stop: 09/05/19 06:01 Last Admin: 03/11/19 06:05 Dose: 50 mg Documented by: Naloxone HCl (Narcan) 0.4 mg IVP Q2MPRN PRN PRN Reason: SEE COMMENTS Stop: 09/05/19 00:11 Nicotine (Nicoderm) 21 mg TD DAILY [facility]; Protocol Stop: 09/05/19 03:01 Last Admin: 03/11/19 08:47 Dose: 21 mg Documented by: Omeprazole (Prilosec) 20 mg PO 0630 [facility] Stop: 09/05/19 06:31 Last Admin: 03/11/19 06:06 Dose: 20 mg Documented by: Oxycodone HCl (Roxicodone) 10 mg PO BID [facility]; Protocol PRN Reason: Severe Pain Stop: 09/05/19 13:27 Last Admin: 03/11/19 09:10 Dose: 10 mg Documented by: Prednisone (Prednisone) 30 mg PO DAILY [facility] Stop: 09/07/19 09:01 Last Admin: 03/11/19 08:47 Dose: 30 mg Documented by: - Imaging and Cardiology Chest Xray: report reviewed Echo: report reviewed - EKG Interpretation EKG results cardiology: other (Telemetry reviewed with average HR previous 12 hours noted to be 103, a.flutter. PVCS noted.) Consult Discharge Plan - Plan Referrals: Jo Mcmahon, KNIFE SHARPENER [Advanced Practice Nurse] - 03/16/19 12:45 pm
--- NOTE | 2019-03-11 16:21 | Internal Med Progress Note ---
Hospitalist Progress Note - Encounter Date of Encounter: 03/11/19 Time of Encounter: 11:30 - Subjective Interval History: Mr Alexandra is agreeable and being considered for placement to SNF case management is awaiting pre-certification from his third green party insurance. As per the housing situation and being homeless his girlfriend Karen claims that she is unable to find any apartment complex due to a 3 year waiting period. She became quite upset at him for going to go to a SNF. Numerous attempts to help educate and enlightening Karen was futile. Of note patient communicates via bedside clip board s/p trach GEN: Denies fever, chills or malaise HEENT: Denies headache blurriness, or dysphagia RESP: Admits to improve SOB or cough CV: Denies chest pain or palpitations GI: Denies Nausea, vomiting, diarrhea or constipation Reviewed current in hospital medications with modifications see orders Reviewed Routine labs - Exam Vitals: Temp Pulse Resp BP Pulse Ox 97.1 F L 111 18 91/48 91 03/11/19 11:41 03/11/19 11:41 03/11/19 11:41 03/11/19 11:41 03/11/19 11:41 Exam: GEN: Morbidly obese male NAD, A&O x 3, pleasant and conversant via clip board, girl friend at bed side SKIN: [place] warm acyanotic not jaundice Neck: Trach noted HEART: Distant secondary to body habitus appears irregular no murmurs LUNGS: Distant secondary to body habitus appears CTA no wheeze with minimal crackles, overall non labored ABDOMEN; obese Soft, non tender or distended, BS x 4 normactive EXT: Trace LE edema, Pedal pulses 1+, radial pulses 2+ PSYCH: Mood and affect is appropriate - Assessment and Plan (1) Diabetes Current Visit: Yes Status: Chronic Assessment and Plan: A1c of 10, continue basal short-acting insulin. POC ranges 200s to 300s would increase basal insulin further from 50 u bid to 60 u bid (2) Atrial flutter with rapid ventricular response Current Visit: Yes Status: Acute Assessment and Plan: s/p ROSHAN cardioversion appreciate cardiology input. on apixaban, (3) CHF exacerbation Current Visit: Yes Status: Acute Assessment and Plan: patient with a total negative fluid balance of 12 litters, switch IV Lasix to by mouth daily but urine out put diminished, will switch back to iv, discussed case with retirement consultant. continue strict intake and output plus daily weight. (4) History of DVT in adulthood Current Visit: Yes Status: Chronic Assessment and Plan: c/w apixaban 5mg/PO BID (5) Hypertension Current Visit: Yes Status: Chronic Assessment and Plan: BP low normal but trending down we switch metoprolol from q6h to just bid (6) Hyperlipidemia Current Visit: Yes Status: Chronic Assessment and Plan: On atorvastatin 80 mg (7) GERD (gastroesophageal reflux disease) Current Visit: Yes Status: Chronic Assessment and Plan: Continue omeprazole 20 mg by mouth daily. (8) Tracheostomy in place Current Visit: Yes Status: Chronic Assessment and Plan: Pulmonology recommended outpatient f/u with the ENT who placed the trach. (9) COPD exacerbation Current Visit: Yes Status: Suspected Assessment and Plan: Improving continue DuoNeb (10) Acute and chronic respiratory failure ([id number]) Current Visit: Yes Status: Acute Assessment and Plan: Likely multifactorial his morbid obesity, obesity hypoventilation syndrome, DANIEL patient likely would need short-term ventilatory support plan is to discharge to ECF (11) Obesity hypoventilation syndrome Current Visit: Yes Status: Chronic Assessment and Plan: Patient will likely need short-term ventilatory support (12) History of smoking Current Visit: Yes Status: Chronic Assessment and Plan: Continue to encourage cessation (13) CKD (chronic kidney disease) stage 4, GFR 15-29 ml/min Current Visit: Yes Status: Acute (14) JEANCARLOS (acute kidney injury) Current Visit: Yes Status: Acute Assessment and Plan: Likely secondary to hypo-profusion improving from yesterday anticipates to improve as his cardiac output improves with diuresis DVT Prophylaxis: On apixaban - Time Spent with Patient Total time spent is greater than 50% in coordination of care (as documented) at patient's floor/unit and/or counseling patient: Internal Medicine: Result - Labs CBC & Chem 7: 03/10/19 03:39 03/10/19 03:39 - ABG Interpretation ABG results: ABG ABG pH 7.21 pH Units (7.32-7.45) L 03/08/19 12:12 ABG pCO2 115 mmHg (35-45) H* 03/08/19 12:12 ABG pO2 83 mmHg (85-104) L 03/08/19 12:12 ABG O2 Saturation 92 % (95-98) L 03/08/19 12:12 PT/INR, D-dimer PT 13.2 Seconds (9.4-12.1) H 03/06/19 00:33 - Impressions Impressions Echocardiogram 03/10/19 14:30 Impressions: Technically sub-optimal due to body habitus. Definity echo contrast was used. Grossly, LV systolic function appears normal but is not optimally visualized even with use of Definity. Indeterminate diastolic function. There is no LV thrombus. RV is not well evaluated. Mild tricuspid regurgitation. No pulmonary hypertension based on TR signal obtained. Left Ventricular Wall Motion: Rest Echo Findings The apex, apical inferior, mid inferior, basal inferior, apical anterior, mid anterior, basal anterior, apical septal, mid inferior septal, basal inferior septal, apical lateral, mid anterior lateral, basal anterior lateral, mid anterior septal, mid inferior lateral, basal anterior septal and basal inferior lateral curry were hypokinetic. Findings: Study Quality * Technically sub-optimal due to body habitus. ECG Findings * Atrial fibrillation. Left Ventricle * Definity echo contrast was used. * Indeterminate diastolic function. * Grossly, LV systolic function appears normal. * LV chamber size and wall thickness measurements are not well obtained. * There is no LV thrombus. Right Ventricle * RV is not well evaluated. Left Atrium * Left atrium is not well visualized. Right Atrium * Right atrium is not well visualized. Aortic Valve * No aortic regurgitation. * No aortic stenosis. * Suboptimal Doppler evaluation. Mitral Valve * No mitral regurgitation. * No mitral stenosis. * Mitral valve not well visualized. Tricuspid Valve * Tricuspid valve not well visualized. * Mild tricuspid regurgitation. Pulmonic Valve * Pulmonic valve is not well visualized. Aorta * Not well visualized. Pulmonary Artery * Pulmonary artery not well visualized. Pericardium * There is no pericardial effusion present. Interatrial Septum * Interatrial septum not well evaluated. IVC * The IVC is not well evaluated. Consult Discharge Plan - Plan Referrals: Jo Mcmahon, PIANO MAKER [Advanced Practice Nurse] - 03/16/19 12:45 pm (1) Diabetes Qualifiers: Diabetes mellitus type: type 2 Diabetes mellitus terminal clerk insulin use: with terminal clerk use Diabetes mellitus complication status: without complication Qualified Code(s): E11.9 - Type 2 diabetes mellitus without complications; Z79.4 - buttermaker helper (current) use of insulin (3) CHF exacerbation Qualifiers: Heart failure type: diastolic Qualified Code(s): I50.33 - Acute on chronic diastolic (congestive) heart failure (5) Hypertension Qualifiers: Hypertension type: essential hypertension Qualified Code(s): I10 - Essential (primary) hypertension (6) Hyperlipidemia Qualifiers: Hyperlipidemia type: unspecified Qualified Code(s): E78.5 - Hyperlipidemia, unspecified (7) GERD (gastroesophageal reflux disease) Qualifiers: Esophagitis presence: esophagitis presence not specified Qualified Code(s): K21.9 - Gastro-esophageal reflux disease without esophagitis (10) Acute and chronic respiratory failure ([id number]) Qualifiers: Respiratory failure complication: hypoxia and hypercapnia Qualified Code(s): J96.21 - Acute and chronic respiratory failure with hypoxia; J96.22 - Acute and chronic respiratory failure with hypercapnia
[2019-03-11 18:20] LABS: BUN/Creatinine Ratio 22 (6-26); Blood Urea Nitrogen 21 mg/dL (6-20); Calcium 8.9 mg/dL (8.6-10.3); Chloride 91 mEq/L (98-107); Glucose 299 mg/dL (70-105); Osmolality,Calculated 304 (280-300); Potassium 6.2 mEq/L (3.5-5.1); Sodium 140 mEq/L (136-145); eGFR For African Americans > 60 (> 60); eGFR For Non-African Americans > 60 (> 60)
[2019-03-11 18:40] LABS: Carbon Dioxide > 45 mEq/L (23-29)
[2019-03-11 22:41] LABS: ABG Base Excess 17 mEq/L (-2 to 3); ABG HCO3 50 mEq/L (21-27); ABG Oxygen Saturation 93 % (95-98); ABG PCO2 104 mmHg (35-45); ABG PH 7.29 pH Units (7.32-7.45); ABG PO2 80 mmHg (85-104); ABG TCO2 > 50 mEq/L (20-26)
[2019-03-12] MEDS: Levalbuterol Neb 0.63 MG/3 ML IH SCH ×4 (04:23→22:31)
[2019-03-12 04:53] LABS: Basophils % 0.2 %; Hematocrit 44.6 % (37.5-50.1); Hemoglobin 13.2 g/dL (12.9-16.9); Immature Granulocytes % 0.3 % (0-4); Lymphocytes # 1.2 K/mcL (0.6-4.6); Lymphocytes % 18.9 %; Mean Corpuscular HGB Conc 29.6 g/dL (31.6-35.5); Mean Corpuscular Hemoglobin 30.8 pg (28.0-33.3); Mean Corpuscular Volume 104.2 fL (83.0-100.0); Mean Platelet Volume 11.2 fL (9.4-12.4); Monocytes # 0.4 K/mcL (0.0-1.3); Monocytes % 6.4 %; Neutrophils # 4.8 K/mcL (1.6-8.9); Platelet Count 163 K/mcL (140-400); Red Blood Count 4.28 M/mcL (4.19-5.50); Red Cell Distribution Width 13.7 % (11.5-14.5); Segmented Neutrophils % 74.2 %; White Blood Count 6.5 K/mcL (4.3-11.1)
[2019-03-12 05:20] LABS: BUN/Creatinine Ratio 22 (6-26); Blood Urea Nitrogen 20 mg/dL (6-20); Calcium 8.9 mg/dL (8.6-10.3); Carbon Dioxide > 45 mEq/L (23-29); Chloride 90 mEq/L (98-107); Glucose 257 mg/dL (70-105); Magnesium 2.1 mg/dL (1.6-2.6); Osmolality,Calculated 305 (280-300); Potassium 4.8 mEq/L (3.5-5.1); Sodium 142 mEq/L (136-145); eGFR For African Americans > 60 (> 60); eGFR For Non-African Americans > 60 (> 60)
[2019-03-12] MEDS: Magnesium Oxide 400 MG TABLET PO SCH ×3 (08:10→21:08)
[2019-03-12] MEDS: predniSONE 10 MG TABLET PO SCH (08:10)
[2019-03-12] MEDS: Loratadine 10 MG TABLET PO SCH (08:10)
[2019-03-12] MEDS: *HR* Amiodarone 200 MG TABLET PO SCH (08:10)
[2019-03-12] MEDS: diazePAM 5 MG TABLET PO SCH ×2 (08:10→21:08)
[2019-03-12] MEDS: Gabapentin 400 MG CAPSULE PO SCH ×4 (08:10→21:07)
[2019-03-12] MEDS: Nicotine 21 MG PATCH.TD24 TD SCH (08:10)
[2019-03-12] MEDS: Insulin LISPRO 300 UNITS/3 ML VIAL SQ SCH ×7 (08:11→21:08)
[2019-03-12] MEDS: Furosemide 40 MG/4 ML VIAL IVP SCH (08:12)
[2019-03-12] MEDS: *HR* OxyCODONE Immed Rel 5 MG TABLET PO PRN (08:26)
[2019-03-12] MEDS: Apixaban 5 MG TABLET PO SCH ×2 (08:26→21:08)
[2019-03-12] MEDS: Insulin DETEMIR 100 UNIT/ML X5UNITS SQ SCH ×2 (08:28→21:08)
--- NOTE | 2019-03-12 11:15 | Pulmonology Progress Note ---
<Tae Clark M - Last Filed: 03/12/19 14:48> Date of Encounter: 03/12/19 Time of Encounter: 10:15 Assessment and Plan (1) Acute and chronic respiratory failure ([id number]) Current Visit: Yes Status: Acute Patient was noted to be more somnolent on exam today. Repeat EKG ABG revealed worsening hypercapnia. Patient does have a history of chronic respiratory failure with hypercapnia secondary to obesity hypoventilation syndrome. However, patient respiratory status has acutely worsened from day before with increasing CO2 and decreasing pO2. Chest x-ray 03/06/19 revealed significant cardiomegaly with vascular congestion and bilateral pulmonary opacities tax representative of pulmonary edema. Suspect patient suffering from decreased gas exchange and VQ mismatch secondary to alveolar space filling as a result of an acutely decompensated exacerbation of congestive heart failure. Patient had un-cuffed tracheostomy on supplemental O2 at home, this was replaced with cuffed trach by ENT on 03/10/19. Plan: -Continue Pressure Support at night -Continue with O2 supplementation during daytime to allow for breaks as tolerat ed -Continue bronchodilators, currently duonebs QID -Suspect patient's significant fluid overload is contributing to his poor respiratory status, decreased gas exchange, severe hypercapnia -Recommend continufed diuresis, blood pressure/heart rate will likely improve secondary to this, may add albumin as needed -Recommend continuing with IV Diuresis at this time -Patient will need Trilogy device on discharge but is currently homeless, patient will need ECF when stable for discharge Qualifiers: Respiratory failure complication: hypoxia and hypercapnia Qualified Code(s): J96.21 - Acute and chronic respiratory failure with hypoxia; J96.22 - Acute and chronic respiratory failure with hypercapnia (2) CHF exacerbation Current Visit: Yes Status: Acute Patient is in an acute exacerbation of CHF Continue with 1.5 L fluid restriction Continue with diuresis as tolerable by kidney function, suspect blood pressure and respiratory status will improve secondary to this 1.2L negative fluid balance yesterday, cumulative during hospital stay negative 14L Qualifiers: Heart failure type: diastolic Qualified Code(s): I50.33 - Acute on chronic diastolic (congestive) heart failure (3) Obesity hypoventilation syndrome Current Visit: Yes Status: Chronic Morbidly obese individual with chronic hypercapnic respiratory failure suffers from obesity hypoventilation syndrome. Patient currently on cardiac diet, recommend instructions regarding lifestyle modification and low sodium diet moving forward. Rest of plan for hypoventilation as above. Subjective Principal diagnosis: Atrial flutter, CHF, respiratory failure Interval history: Patient seen and examined. Reports no complaints with vent overnight. Continuing with Pressure Support at night. Currently on 10L supplemental O2 during day, tolerating well. Patient denies any new or worsening complaints. Admits to some mild wheezing and cough no worse than before, denies feeling short of breath at this time. Subjectively feels somewhat improved today overall and from a respiratory status but feels progress is slow and is eager to get more fluid removed and get out of hospital. Patient will be going to SNF on discharge and will need Trilogy device for continued pressure support. Objective PUL Vital signs: Last Vital Signs Temp 98.5 F 03/12/19 07:40 Pulse 103 03/12/19 07:50 Resp 19 03/12/19 11:02 BP 113/74 03/12/19 07:40 Pulse Ox 90 03/12/19 11:02 Gen.: Morbidly obese. Vitals noted. A. fib RVR. HEENT: Anicteric sclera, moist conjunctiva, mucous murmurs moist Neck: Tracheostomy with cuff in place, functioning properly on pressure support currently CV: Irregular rate, irregular rhythm, no murmurs, gallops, rubs, heart rate 105 today on exam Respiratory: Coarse breath sounds bilaterally, no wheezing, rhonchi, rales Abdomen: Significantly distended secondary to profound fluid overload, nontender Extremities: +3 pitting edema bilaterally pretibial noted, no rashes, cyanosis appreciated Ventilator Settings Ventilator Settings: Ventilator Settings, Last 8 Hours Actual Respiratory Rate 13 Actual Respiratory Rate 13 Positive End Expiratory 5 Pressure Positive End Expiratory 5 Pressure Peak Inspiratory Airway 20 Pressure Peak Inspiratory Airway 20 Pressure Results - Laboratory Findings CBC and BMP: 03/12/19 04:29 03/12/19 04:29 ABG ABG pH 7.29 pH Units (7.32-7.45) L 03/11/19 22:26 ABG pCO2 104 mmHg (35-45) H* 03/11/19 22:26 ABG pO2 80 mmHg (85-104) L 03/11/19 22:26 ABG O2 Saturation 93 % (95-98) L 03/11/19 22:26 PT/INR, D-dimer PT 13.2 Seconds (9.4-12.1) H 03/06/19 00:33 Abnormal lab findings: Abnormal lab results MCV 104.2 fL (83.0-100.0) H 03/12/19 04:29 MCHC 29.6 g/dL (31.6-35.5) L 03/12/19 04:29 RDW 14.9 % (11.5-14.5) H 03/06/19 00:33 Hypochromasia Present (Not Present) A 03/10/19 03:39 PT 13.2 Seconds (9.4-12.1) H 03/06/19 00:33 ABG pH 7.29 pH Units (7.32-7.45) L 03/11/19 22:26 ABG pCO2 104 mmHg (35-45) H* 03/11/19 22:26 ABG pO2 80 mmHg (85-104) L 03/11/19 22:26 ABG HCO3 50 mEq/L (21-27) H 03/11/19 22:26 ABG Total CO2 > 50 mEq/L (20-26) H 03/11/19 22:26 ABG O2 Saturation 93 % (95-98) L 03/11/19 22:26 ABG Base Excess 17 mEq/L (-2 to 3) H 03/11/19 22:26 Potassium 6.2 mEq/L (3.5-5.1) H 03/11/19 14:27 Chloride 90 mEq/L (98-107) L 03/12/19 04:29 Carbon Dioxide > 45 mEq/L (23-29) H* 03/12/19 04:29 BUN 21 mg/dL (6-20) H 03/11/19 14:27 BUN/Creatinine Ratio 28 (6-26) H 03/08/19 05:40 Glucose 257 mg/dL (70-105) H 03/12/19 04:29 POC Glucose 328 mg/dL (70-99) H 03/11/19 19:47 Hemoglobin A1c 10.0 % (-5.6) H 03/06/19 00:33 Calculated Osmolality 305 (280-300) H 03/12/19 04:29 Calcium 8.3 mg/dL (8.6-10.3) L 03/10/19 03:39 AST 12 Units/L (13-39) L 03/06/19 00:33 Serum Total Protein 6.1 g/dL (6.4-8.9) L 03/06/19 00:33 Albumin 3.2 g/dL (3.5-5.7) L 03/06/19 00:33 - Clinical Findings Intake & Output: Intake & Output 03/11/19 03/12/19 03/12/19 23:59 07:59 15:59 Intake Total 240 / 960 120 / 120 Output Total 2200 / 2200 300 / 300 Balance -1960 / -1240 -300 / -180 120 / -180 Weight 221.4 kg Consult Discharge Plan - Plan Referrals: Jo Mcmahon, BUILDER OPERATOR [Advanced Practice Nurse] - 03/16/19 12:45 pm <Jeovany Simmons - Last Filed: 03/12/19 15:21> Date of Encounter: 03/12/19 Assessment and Plan (1) Acute and chronic respiratory failure ([id number]) Current Visit: Yes Status: Acute Qualifiers: Respiratory failure complication: hypoxia and hypercapnia Qualified Code(s): J96.21 - Acute and chronic respiratory failure with hypoxia; J96.22 - Acute and chronic respiratory failure with hypercapnia (2) Atrial flutter with rapid ventricular response Current Visit: Yes Status: Acute (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 (4) Obesity hypoventilation syndrome Current Visit: Yes Status: Chronic (5) COPD (chronic obstructive pulmonary disease) Current Visit: Yes Status: Acute Qualifiers: Emphysema type: unspecified Qualified Code(s): J43.9 - Emphysema, u nspecified (6) CHF exacerbation Current Visit: Yes Status: Acute Qualifiers: Heart failure type: diastolic Qualified Code(s): I50.33 - Acute on chronic diastolic (congestive) heart failure Objective PUL Vital signs: Last Vital Signs Temp 98.5 F 03/12/19 07:40 Pulse 122 03/12/19 11:38 Resp 17 03/12/19 11:38 BP 117/64 03/12/19 11:38 Pulse Ox 90 03/12/19 11:02 Ventilator Settings Ventilator Settings: Ventilator Settings, Last 8 Hours Actual Respiratory Rate 13 Positive End Expiratory 5 Pressure Peak Inspiratory Airway 20 Pressure Results - Laboratory Findings CBC and BMP: 03/12/19 04:29 03/12/19 04:29 ABG ABG pH 7.29 pH Units (7.32-7.45) L 03/11/19 22:26 ABG pCO2 104 mmHg (35-45) H* 03/11/19 22:26 ABG pO2 80 mmHg (85-104) L 03/11/19 22:26 ABG O2 Saturation 93 % (95-98) L 03/11/19 22:26 PT/INR, D-dimer PT 13.2 Seconds (9.4-12.1) H 03/06/19 00:33 Abnormal lab findings: Abnormal lab results MCV 104.2 fL (83.0-100.0) H 03/12/19 04:29 MCHC 29.6 g/dL (31.6-35.5) L 03/12/19 04:29 RDW 14.9 % (11.5-14.5) H 03/06/19 00:33 Hypochromasia Present (Not Present) A 03/10/19 03:39 PT 13.2 Seconds (9.4-12.1) H 03/06/19 00:33 ABG pH 7.29 pH Units (7.32-7.45) L 03/11/19 22:26 ABG pCO2 104 mmHg (35-45) H* 03/11/19 22:26 ABG pO2 80 mmHg (85-104) L 03/11/19 22:26 ABG HCO3 50 mEq/L (21-27) H 03/11/19 22:26 ABG Total CO2 > 50 mEq/L (20-26) H 03/11/19 22:26 ABG O2 Saturation 93 % (95-98) L 03/11/19 22:26 ABG Base Excess 17 mEq/L (-2 to 3) H 03/11/19 22:26 Potassium 6.2 mEq/L (3.5-5.1) H 03/11/19 14:27 Chloride 90 mEq/L (98-107) L 03/12/19 04:29 Carbon Dioxide > 45 mEq/L (23-29) H* 03/12/19 04:29 BUN 21 mg/dL (6-20) H 03/11/19 14:27 BUN/Creatinine Ratio 28 (6-26) H 03/08/19 05:40 Glucose 257 mg/dL (70-105) H 03/12/19 04:29 POC Glucose 215 mg/dL (70-99) H 03/12/19 07:43 Hemoglobin A1c 10.0 % (-5.6) H 03/06/19 00:33 Calculated Osmolality 305 (280-300) H 03/12/19 04:29 Calcium 8.3 mg/dL (8.6-10.3) L 03/10/19 03:39 AST 12 Units/L (13-39) L 03/06/19 00:33 Serum Total Protein 6.1 g/dL (6.4-8.9) L 03/06/19 00:33 Albumin 3.2 g/dL (3.5-5.7) L 03/06/19 00:33 - Clinical Findings Intake & Output: Intake & Output 03/11/19 03/12/19 03/12/19 23:59 07:59 15:59 Intake Total 240 / 960 120 / 120 Output Total 2200 / 2200 300 / 300 Balance -1960 / -1240 -300 / -180 120 / -180 Weight 221.4 kg - Attending Attestation I examined this patient and my medical decision-making was reviewed with the Resident Physician. I agree with the documented findings, disposition and treatment plan as described except to the extent set forth below. We independently had [id number] contact with the patient Patient seen and examined at bedside Labs, radiology, chart personally reviewed. Impression/Recs: Stable examination. Recommend increasing diuresis by increasing Lasix dose. Continue pressure support mode when patient is sleeping. Home qualification for noninvasive ventilation
--- NOTE | 2019-03-12 14:30 | Event Note ---
Date of Encounter: 03/12/19 Time of Encounter: 14:24 - Cardiology Event Note Patient with a.flutter, on BB and amiodarone. Average HR previous 12 hours noted to be 104. BP improved today. Will increase BB. Continue to monitor HR. Can further titrate BB if needed for HR control as BP will allow. Suspect HR will improve as volume and respiratory status improves. Continue eliquis for anticoagulation. Diastolic CHF. Currently on IV lasix, net negative 14.2L. Renal function stable. Remains volume overloaded. TTE with LVEF grossly normal, however poor study due to body habitus. Fluid restriction, daily weights, strict i/os. CHF education reviewed with patient and family. Recommend continued diuresis until euvolemic, as renal function tolerates. Was on lasix 40mg po daily at home. Recommend lasix 40mg PO BID at discharge. Cardiology will sign off, will arrange close outpatient follow up. Re-consult if needed.
--- NOTE | 2019-03-12 17:43 | Internal Med Progress Note ---
Hospitalist Progress Note - Encounter Date of Encounter: 03/12/19 Time of Encounter: 13:30 - Subjective Interval History: Was notified by nursing staff the patient is not following his fluid restriction diet and that his girlfriend keeps bringing outside food for the patient with sodas. Per case management the skilled facility would not take patient given his chronic elevated hypercapnia 104-115 which likely is baseline for the patient given his body habitus GEN: Denies fever, chills or malaise HEENT: Denies headache blurriness, or dysphagia RESP: Denies SOB or cough CV: Denies chest pain or palpitations GI: Denies Nausea, vomiting, diarrhea or constipation Reviewed current in hospital medications with modifications see orders Reviewed Routine labs - Exam Vitals: Temp Pulse Resp BP Pulse Ox 98.5 F 127 18 108/65 92 03/12/19 07:40 03/12/19 16:19 03/12/19 16:19 03/12/19 16:19 03/12/19 16:19 Exam: GEN: Morbidly obese male NAD, A&O x 3, pleasant and conversant via clip board, girl friend at bed side SKIN: [place] warm acyanotic not jaundice Neck: Trach noted HEART: Distant secondary to body habitus appears irregular no murmurs LUNGS: Distant secondary to body habitus appears CTA no wheeze with minimal crackles, overall non labored ABDOMEN; obese Soft, non tender or distended, BS x 4 normactive EXT: 2 + LE edema, Pedal pulses 1+, radial pulses 2+ PSYCH: Mood and affect is appropriate - Assessment and Plan (1) Non-compliance Current Visit: Yes Status: Acute Assessment and Plan: Patient is noncompliance with the dietary restriction and his ADA diet and cardiac diet. His girlfriend brings him outside hospital food from fast food as well as sodas, he is not adhering 1.5 L fluid restriction diet (2) CHF exacerbation Current Visit: Yes Status: Acute Assessment and Plan: patient with a total negative fluid balance of 15.3 litters, switch IV Lasix to by mouth daily but urine out put diminished, will switch back to iv, patient is not adhering to his fluid restriction diet or salt restriction diet. This may be okay if patient agrees to go palliative (3) Diabetes Current Visit: Yes Status: Chronic Assessment and Plan: A1c of 10, continue basal short-acting insulin. POC ranges 200s to 300s would increase basal insulin further from 50 u bid to 60 u bid. Patient is noncompliant with dietary regimen with increased Levemir again to 70 twice a day (4) Atrial flutter with rapid ventricular response Current Visit: Yes Status: Acute Assessment and Plan: s/p ROSHAN cardioversion appreciate cardiology input. on apixaban, (5) History of DVT in adulthood Current Visit: Yes Status: Chronic Assessment and Plan: c/w apixaban 5mg/PO BID (6) Hypertension Current Visit: Yes Status: Chronic Assessment and Plan: BP low normal but trending down we switch metoprolol from q6h to just bid (7) Hyperlipidemia Current Visit: Yes Status: Chronic Assessment and Plan: On atorvastatin 80 mg (8) GERD (gastroesophageal reflux disease) Current Visit: Yes Status: Chronic Assessment and Plan: Continue omeprazole 20 mg by mouth daily. (9) Tracheostomy in place Current Visit: Yes Status: Chronic Assessment and Plan: Pulmonology recommended outpatient f/u with the ENT who placed the trach. (10) COPD exacerbation Current Visit: Yes Status: Suspected Assessment and Plan: Improving continue DuoNeb (11) Acute and chronic respiratory failure ([id number]) Current Visit: Yes Status: Acute Assessment and Plan: Likely multifactorial his morbid obesity, obesity hypoventilation syndrome, DANIEL patient likely would need short-term ventilatory support plan is to discharge to ECF (12) Obesity hypoventilation syndrome Current Visit: Yes Status: Chronic Assessment and Plan: Patient will likely need short-term ventilatory support (13) History of smoking Current Visit: Yes Status: Chronic Assessment and Plan: Continue to encourage cessation (14) JEANCARLOS (acute kidney injury) Current Visit: Yes Status: Acute Assessment and Plan: Likely secondary to hypo-profusion improving from yesterday anticipates to improve as his cardiac output improves with diuresis - Time Spent with Patient Total time spent is greater than 50% in coordination of care (as documented) at patient's floor/unit and/or counseling patient: Internal Medicine: Result - Labs CBC & Chem 7: 03/12/19 04:29 03/12/19 04:29 Labs: Short CBC 03/12/19 Range/Units 04:29 WBC 6.5 (4.3-11.1) K/mcL Hgb 13.2 (12.9-16.9) g/dL Hct 44.6 (37.5-50.1) % Plt Count 163 (140-400) K/mcL Neutrophils # 4.8 (1.6-8.9) K/mcL BMP 03/11/19 03/12/19 14:27 04:29 Sodium 140 142 Potassium 6.2 H 4.8 Chloride 91 L 90 L Carbon Dioxide > 45 H* > 45 H* BUN 21 H 20 Creatinine 0.94 0.90 Glucose 299 H 257 H Calcium 8.9 8.9 - ABG Interpretation ABG results: ABG ABG pH 7.29 pH Units (7.32-7.45) L 03/11/19 22:26 ABG pCO2 104 mmHg (35-45) H* 03/11/19 22:26 ABG pO2 80 mmHg (85-104) L 03/11/19 22:26 ABG O2 Saturation 93 % (95-98) L 03/11/19 22:26 PT/INR, D-dimer PT 13.2 Seconds (9.4-12.1) H 03/06/19 00:33 Consult Discharge Plan - Plan Referrals: Jo Mcmahon, SERVICE MANAGER [Advanced Practice Nurse] - 03/16/19 12:45 pm (2) CHF exacerbation Qualifiers: Heart failure type: diastolic Qualified Code(s): I50.33 - Acute on chronic diastolic (congestive) heart failure (3) Diabetes Qualifiers: Diabetes mellitus type: type 2 Diabetes mellitus care home insulin use: with bad credit collector use Diabetes mellitus complication status: without complication Qualified Code(s): E11.9 - Type 2 diabetes mellitus without complications; Z79.4 - dog hair clipper (current) use of insulin (6) Hypertension Qualifiers: Hypertension type: essential hypertension Qualified Code(s): I10 - Essential (primary) hypertension (7) Hyperlipidemia Qualifiers: Hyperlipidemia type: unspecified Qualified Code(s): E78.5 - Hyperlipidemia, unspecified (8) GERD (gastroesophageal reflux disease) Qualifiers: Esophagitis presence: esophagitis presence not specified Qualified Code(s): K21.9 - Gastro-esophageal reflux disease without esophagitis (11) Acute and chronic respiratory failure ([id number]) Qualifiers: Respiratory failure complication: hypoxia and hypercapnia Qualified Code(s): J96.21 - Acute and chronic respiratory failure with hypoxia; J96.22 - Acute and chronic respiratory failure with hypercapnia
[2019-03-13] MEDS: Levalbuterol Neb 0.63 MG/3 ML IH SCH ×4 (04:16→22:36)
[2019-03-13 04:51] LABS: Basophils % 0.2 %; Hematocrit 42.1 % (37.5-50.1); Hemoglobin 12.4 g/dL (12.9-16.9); Immature Granulocytes % 0.2 % (0-4); Lymphocytes # 1.3 K/mcL (0.6-4.6); Lymphocytes % 20.9 %; Mean Corpuscular HGB Conc 29.5 g/dL (31.6-35.5); Mean Corpuscular Hemoglobin 31.2 pg (28.0-33.3); Mean Platelet Volume 11.6 fL (9.4-12.4); Monocytes # 0.4 K/mcL (0.0-1.3); Monocytes % 5.8 %; Neutrophils # 4.7 K/mcL (1.6-8.9); Platelet Count 172 K/mcL (140-400); Red Blood Count 3.97 M/mcL (4.19-5.50); Red Cell Distribution Width 13.8 % (11.5-14.5); Segmented Neutrophils % 72.9 %; White Blood Count 6.4 K/mcL (4.3-11.1)
[2019-03-13 05:13] LABS: BUN/Creatinine Ratio 28 (6-26); Blood Urea Nitrogen 28 mg/dL (6-20); Calcium 8.8 mg/dL (8.6-10.3); Carbon Dioxide > 45 mEq/L (23-29); Chloride 92 mEq/L (98-107); Glucose 356 mg/dL (70-105); Osmolality,Calculated 316 (280-300); Potassium 4.2 mEq/L (3.5-5.1); Sodium 143 mEq/L (136-145); eGFR For African Americans > 60 (> 60); eGFR For Non-African Americans > 60 (> 60)
[2019-03-13] MEDS ORDERED: Dextrose Gel 15 GM/37.5 ML TUBE PO PRN ×2 (07:33)
[2019-03-13] MEDS ORDERED: D5% in Water 1,000 ML IVC PRN (07:33)
[2019-03-13] MEDS ORDERED: *HR* Dextrose 50 % in Water (Syg) 50 ML SYRINGE IVP PRN (07:33)
[2019-03-13] MEDS: Magnesium Oxide 400 MG TABLET PO SCH ×3 (08:50→21:18)
[2019-03-13] MEDS: diazePAM 5 MG TABLET PO SCH ×2 (08:50→21:18)
[2019-03-13] MEDS: Apixaban 5 MG TABLET PO SCH ×2 (08:51→21:18)
[2019-03-13] MEDS: *HR* OxyCODONE Immed Rel 5 MG TABLET PO PRN (08:51)
[2019-03-13] MEDS: Gabapentin 400 MG CAPSULE PO SCH ×4 (08:51→21:18)
[2019-03-13] MEDS: predniSONE 10 MG TABLET PO SCH (08:51)
[2019-03-13] MEDS: *HR* Amiodarone 200 MG TABLET PO SCH (08:52)
[2019-03-13] MEDS: Loratadine 10 MG TABLET PO SCH (08:53)
[2019-03-13] MEDS: Insulin LISPRO 300 UNITS/3 ML VIAL SQ SCH ×3 (08:53→17:24)
[2019-03-13] MEDS: Nicotine 21 MG PATCH.TD24 TD SCH (08:53)
[2019-03-13] MEDS: Furosemide 40 MG/4 ML VIAL IVP SCH (08:54)
[2019-03-13] MEDS: Insulin DETEMIR 100 UNIT/ML X5UNITS SQ SCH ×2 (08:58→21:18)
--- NOTE | 2019-03-13 16:43 | Internal Med Progress Note ---
Hospitalist Progress Note - Encounter Date of Encounter: 03/13/19 Time of Encounter: 12:00 - Subjective Interval History: Mr Alexandra is awaiting placement at a long-term facility, however per case management the SNF is concern about his hypercapnia. Patient admitted to ordering fast food from the on-line Delivery Service to his hospital bed. GEN: Denies fever, chills or malaise HEENT: Denies headache blurriness, or dysphagia RESP: Denies SOB or cough CV: Denies chest pain or palpitations GI: Denies Nausea, vomiting, diarrhea or constipation Reviewed current in hospital medications with modifications see orders Reviewed Routine labs - Exam Vitals: Temp Pulse Resp BP Pulse Ox 98.0 F 110 19 111/57 92 03/13/19 07:58 03/13/19 13:00 03/13/19 15:22 03/13/19 13:00 03/13/19 15:22 Exam: GEN: Morbidly obese male, NAD, A&O x 3, pleasant and conversant via clip board, girl friend at bed side SKIN: [place] warm acyanotic not jaundice Neck: Trach noted HEART: Distant secondary to body habitus appears irregular no murmurs LUNGS: Distant secondary to body habitus appears CTA no wheeze with minimal cr ackles, overall non labored ABDOMEN; obese Soft, non tender or distended, BS x 4 normactive EXT: 2 + LE edema, Pedal pulses 1+, radial pulses 2+ PSYCH: Mood and affect is appropriate - Assessment and Plan (1) Acute and chronic respiratory failure ([id number]) Current Visit: Yes Status: Acute Assessment and Plan: Likely multifactorial his morbid obesity, obesity hypoventilation syndrome, DANIEL patient likely would need short-term ventilatory support plan is to discharge to SNF, however the facility is hesitant to take patient given his hypercapnia which likely is baseline for the patient ABG yesterday pH 7.29, PCO2 104, PO2 80 HCO3 50 patient is asymptomatic with intact mentation indicative of chronicity of his hypercapnia (2) Non-compliance Current Visit: Yes Status: Acute Assessment and Plan: Patient is noncompliance with the dietary restriction and his ADA diet and cardiac diet. His girlfriend denied bringing him outside hospital food from fast food as well as sodas, citing the patient himself orders to food from the online delivery food preparation worker to his hospital bed. Patient did admit to ordering fast food to be delivered to his hospital bed and not adhering 1.5 L fluid restriction diet. Educated the patient and his girlfriend that we cannot get him better if he does not adhere to the treatment plan they appeared to have good understanding and comprehension of discussion however their insight and judgment is questionable (3) CHF exacerbation Current Visit: Yes Status: Acute Assessment and Plan: patient with a total negative fluid balance of 15.4 litters, switch IV Lasix to by mouth daily but urine out put diminished, will switch back to iv, patient is not adhering to his fluid restriction diet or salt restriction diet. This may be okay if patient agrees to go palliative however he is not ready to go palliative admits to being nonadherent to his dietary restrictions (4) Diabetes Current Visit: Yes Status: Chronic Assessment and Plan: A1c of 10, continue basal short-acting insulin. POC ranges 200s to 290s would increase basal insulin further from 50 u bid to 60 u bid. Patient is noncompliant with dietary regimen with increased Levemir again to 70 twice a day. nonadherence to treatment plan and dietary restriction will increase his short-acting insulin and also (5) Atrial flutter with rapid ventricular response Current Visit: Yes Status: Acute Assessment and Plan: s/p ROSHAN cardioversion appreciate cardiology input. on apixaban, (6) History of DVT in adulthood Current Visit: Yes Status: Chronic Assessment and Plan: c/w apixaban 5mg/PO BID (7) Hypertension Current Visit: Yes Status: Chronic Assessment and Plan: BP much improved since switch of metoprolol from q6h to just bid (8) Hyperlipidemia Current Visit: Yes Status: Chronic Assessment and Plan: On atorvastatin 80 mg (9) GERD (gastroesophageal reflux disease) Current Visit: Yes Status: Chronic Assessment and Plan: Continue omeprazole 20 mg by mouth daily. (10) Tracheostomy in place Current Visit: Yes Status: Chronic Assessment and Plan: Pulmonology recommended outpatient f/u with the ENT who placed the trach. (11) COPD exacerbation Current Visit: Yes Status: Suspected Assessment and Plan: Improving continue DuoNeb (12) Obesity hypoventilation syndrome Current Visit: Yes Status: Chronic (13) History of smoking Current Visit: Yes Status: Chronic (14) JEANCARLOS (acute kidney injury) Current Visit: Yes Status: Acute DVT Prophylaxis: On apixaban - Time Spent with Patient Total time spent is greater than 50% in coordination of care (as documented) at patient's floor/unit and/or counseling patient: Internal Medicine: Result - Labs CBC & Chem 7: 03/13/19 04:10 03/13/19 04:10 Labs: Short CBC 03/13/19 Range/Units 04:10 WBC 6.4 (4.3-11.1) K/mcL Hgb 12.4 L (12.9-16.9) g/dL Hct 42.1 (37.5-50.1) % Plt Count 172 (140-400) K/mcL Neutrophils # 4.7 (1.6-8.9) K/mcL BMP 03/13/19 04:10 Sodium 143 Potassium 4.2 Chloride 92 L Carbon Dioxide > 45 H* BUN 28 H Creatinine 0.99 Glucose 356 H Calcium 8.8 - ABG Interpretation ABG results: ABG ABG pH 7.29 pH Units (7.32-7.45) L 03/11/19 22:26 ABG pCO2 104 mmHg (35-45) H* 03/11/19 22:26 ABG pO2 80 mmHg (85-104) L 03/11/19 22:26 ABG O2 Saturation 93 % (95-98) L 03/11/19 22:26 PT/INR, D-dimer PT 13.2 Seconds (9.4-12.1) H 03/06/19 00:33 Consult Discharge Plan - Plan Referrals: Jo Mcmahon, MERCHANDISING INTERN [Advanced Practice Nurse] - 03/16/19 12:45 pm (1) Acute and chronic respiratory failure ([id number]) Qualifiers: Respiratory failure complication: hypoxia and hypercapnia Qualified Code(s): J96.21 - Acute and chronic respiratory failure with hypoxia; J96.22 - Acute and chronic respiratory failure with hypercapnia (3) CHF exacerbation Qualifiers: Heart failure type: diastolic Qualified Code(s): I50.33 - Acute on chronic diastolic (congestive) heart failure (4) Diabetes Qualifiers: Diabetes mellitus type: type 2 Diabetes mellitus longterm insulin use: with longterm use Diabetes mellitus complication status: without complication Qualified Code(s): E11.9 - Type 2 diabetes mellitus without complications; Z79.4 - halfway (current) use of insulin (7) Hypertension Qualifiers: Hypertension type: essential hypertension Qualified Code(s): I10 - Essential (primary) hypertension (8) Hyperlipidemia Qualifiers: Hyperlipidemia type: unspecified Qualified Code(s): E78.5 - Hyperlipidemia, unspecified (9) GERD (gastroesophageal reflux disease) Qualifiers: Esophagitis presence: esophagitis presence not specified Qualified Code(s): K21.9 - Gastro-esophageal reflux disease without esophagitis
[2019-03-14] MEDS: Levalbuterol Neb 0.63 MG/3 ML IH SCH ×4 (04:40→21:53)
[2019-03-14 04:48] LABS: Basophils % 0.3 %; Hematocrit 43.1 % (37.5-50.1); Hemoglobin 12.6 g/dL (12.9-16.9); Immature Granulocytes % 0.3 % (0-4); Lymphocytes # 1.4 K/mcL (0.6-4.6); Lymphocytes % 19.3 %; Mean Corpuscular HGB Conc 29.2 g/dL (31.6-35.5); Mean Corpuscular Hemoglobin 30.4 pg (28.0-33.3); Mean Corpuscular Volume 103.9 fL (83.0-100.0); Mean Platelet Volume 11.8 fL (9.4-12.4); Monocytes # 0.4 K/mcL (0.0-1.3); Monocytes % 5.9 %; Neutrophils # 5.5 K/mcL (1.6-8.9); Platelet Count 181 K/mcL (140-400); Red Blood Count 4.15 M/mcL (4.19-5.50); Red Cell Distribution Width 13.7 % (11.5-14.5); Segmented Neutrophils % 74.2 %; White Blood Count 7.3 K/mcL (4.3-11.1)
[2019-03-14] MEDS: *HR* OxyCODONE Immed Rel 5 MG TABLET PO PRN ×2 (04:52→21:51)
[2019-03-14 05:08] LABS: BUN/Creatinine Ratio 30 (6-26); Blood Urea Nitrogen 31 mg/dL (6-20); Calcium 8.8 mg/dL (8.6-10.3); Carbon Dioxide > 45 mEq/L (23-29); Chloride 92 mEq/L (98-107); Glucose 253 mg/dL (70-105); Magnesium 2.3 mg/dL (1.6-2.6); Osmolality,Calculated 313 (280-300); Potassium 4.5 mEq/L (3.5-5.1); Sodium 144 mEq/L (136-145); eGFR For African Americans > 60 (> 60); eGFR For Non-African Americans > 60 (> 60)
[2019-03-14] MEDS: Loratadine 10 MG TABLET PO SCH (07:53)
[2019-03-14] MEDS: Gabapentin 400 MG CAPSULE PO SCH ×4 (07:53→21:31)
[2019-03-14] MEDS: Apixaban 5 MG TABLET PO SCH ×2 (07:53→21:31)
[2019-03-14] MEDS: *HR* Amiodarone 200 MG TABLET PO SCH (07:53)
[2019-03-14] MEDS: Magnesium Oxide 400 MG TABLET PO SCH ×3 (07:53→21:31)
[2019-03-14] MEDS: predniSONE 10 MG TABLET PO SCH (07:53)
[2019-03-14] MEDS: diazePAM 5 MG TABLET PO SCH ×2 (07:54→21:31)
[2019-03-14] MEDS: Nicotine 21 MG PATCH.TD24 TD SCH (07:54)
[2019-03-14] MEDS: Furosemide 40 MG/4 ML VIAL IVP SCH (07:57)
[2019-03-14] MEDS: Insulin LISPRO 300 UNITS/3 ML VIAL SQ SCH ×4 (07:59→19:30)
[2019-03-14] MEDS: Insulin DETEMIR 100 UNIT/ML X5UNITS SQ SCH ×2 (08:04→21:32)
--- NOTE | 2019-03-14 19:27 | Internal Med Progress Note ---
Hospitalist Progress Note - Encounter Date of Encounter: 03/14/19 Time of Encounter: 11:45 - Subjective Interval History: Mr Alexandra is complaining of headaches but refuses to use his ventilator during the day. He is awaiting placement to [facility] GEN: Denies fever, chills or malaise HEENT: Denies headache blurriness, or dysphagia RESP: Denies SOB or cough CV: Denies chest pain or palpitations GI: Denies Nausea, vomiting, diarrhea or constipation Reviewed current in hospital medications with modifications see orders Reviewed Routine labs - Exam Vitals: Temp Pulse Resp BP Pulse Ox 98.4 F 128 18 108/65 99 03/14/19 16:01 03/14/19 16:03/14/19 16:03/14/19 16:03/14/19 16:01 Exam: GEN: Morbidly obese male, NAD, A&O x 3, pleasant and conversant via clip board, girl friend at bed side SKIN: [place] warm acyanotic not jaundice Neck: Trach noted HEART: Distant secondary to body habitus appears irregular no murmurs LUNGS: Distant secondary to body habitus appears CTA no wheeze with minimal crackles, overall non labored ABDOMEN; obese Soft, non tender or distended, BS x 4 normactive EXT: 2 + LE edema no improvement, Pedal pulses 1+, radial pulses 2+ PSYCH: Mood and affect is appropriate - Assessment and Plan (1) CHF exacerbation Current Visit: Yes Status: Acute Assessment and Plan: patient with a total negative fluid balance of 21.5 litters, with IV Lasix he appears to be refractory to oral lasix but urine out put diminished, patient is not adhering to his fluid restriction diet or salt restriction diet. This may be okay if patient agrees to go palliative however he is not ready to go palliative admits to being nonadherent to his dietary restrictions (2) Diabetes Current Visit: Yes Status: Chronic Assessment and Plan: A1c of 10, continue basal short-acting insulin. POC ranges 207 to 280 since increasing his Levemir to 70 twice a day , of note he is nonadherence to treatment plan and dietary restriction (3) Hypertension Current Visit: Yes Status: Chronic Assessment and Plan: BP much improved since switch of metoprolol from q6h to just bid, but more tachycardic we will switch him to Toprol-XL 100mg twice a day (4) Acute and chronic respiratory failure ([id number]) Current Visit: Yes Status: Acute Assessment and Plan: Likely multifactorial his morbid obesity, obesity hypoventilation syndrome, DANIEL patient likely would need short-term ventilatory support plan is to discharge to SNF, however the facility is hesitant to take patient given his hypercapnia whi ch likely is baseline for the patient ABG yesterday pH 7.29, PCO2 104, PO2 80 HCO3 50 patient is asymptomatic with intact mentation indicative of chronicity of his hypercapnia (5) Non-compliance Current Visit: Yes Status: Acute Assessment and Plan: Patient is noncompliance with the dietary restriction and his ADA diet and cardiac diet. His girlfriend denied bringing him outside hospital food from [employer] as well as sodas, citing the patient himself orders to food from the online delivery analyst food and beverage to his hospital bed. Patient did admit to ordering fast food to be delivered to his hospital bed and not adhering 1.5 L fluid restriction diet. Educated the patient and his girlfriend that we cannot get him better if he does not adhere to the treatment plan they appeared to have good understanding and comprehension of discussion however their insight and judgment is questionable (6) Atrial flutter with rapid ventricular response Current Visit: Yes Status: Acute Assessment and Plan: s/p ROSHAN cardioversion appreciate cardiology input. on apixaban, less with controlled since reducing his Lopressor will switch him to Toprol XL 100 twice a day (7) History of DVT in adulthood Current Visit: Yes Status: Chronic Assessment and Plan: c/w apixaban 5mg/PO BID (8) Hyperlipidemia Current Visit: Yes Status: Chronic Assessment and Plan: On atorvastatin 80 mg (9) GERD (gastroesophageal reflux disease) Current Visit: Yes Status: Chronic Assessment and Plan: Continue omeprazole 20 mg by mouth daily. (10) Tracheostomy in place Current Visit: Yes Status: Chronic Assessment and Plan: Pulmonology recommended outpatient f/u with the ENT who placed the trach. (11) COPD exacerbation Current Visit: Yes Status: Suspected Assessment and Plan: Improving continue DuoNeb (12) Obesity hypoventilation syndrome Current Visit: Yes Status: Chronic Assessment and Plan: Patient will likely need short-term ventilatory support (13) History of smoking Current Visit: Yes Status: Chronic Assessment and Plan: Continue to encourage cessation (14) JAENCARLOS (acute kidney injury) Current Visit: Yes Status: Acute Assessment and Plan: Likely secondary to hypo-profusion improving from yesterday anticipates to improve as his cardiac output improves with diuresis - Time Spent with Patient Total time spent is greater than 50% in coordination of care (as documented) at patient's floor/unit and/or counseling patient: Internal Medicine: Result - Labs CBC & Chem 7: 03/14/19 04:00 03/14/19 04:00 Labs: Short CBC 03/14/19 Range/Units 04:00 WBC 7.3 (4.3-11.1) K/mcL Hgb 12.6 L (12.9-16.9) g/dL Hct 43.1 (37.5-50.1) % Plt Count 181 (140-400) K/mcL Neutrophils # 5.5 (1.6-8.9) K/mcL BMP 03/14/19 04:00 Sodium 144 Potassium 4.5 Chloride 92 L Carbon Dioxide > 45 H* BUN 31 H Creatinine 1.03 Glucose 253 H Calcium 8.8 - ABG Interpretation ABG results: ABG ABG pH 7.29 pH Units (7.32-7.45) L 03/11/19 22:26 ABG pCO2 104 mmHg (35-45) H* 03/11/19 22:26 ABG pO2 80 mmHg (85-104) L 03/11/19 22:26 ABG O2 Saturation 93 % (95-98) L 03/11/19 22:26 PT/INR, D-dimer PT 13.2 Seconds (9.4-12.1) H 03/06/19 00:33 Consult Discharge Plan - Plan Referrals: Jo Mcmahon, QUALITY ASSURANCE/R&D LAB TECHNICIAN [Advanced Practice Nurse] - 03/16/19 12:45 pm __ (1) CHF exacerbation Qualifiers: Heart failure type: diastolic Qualified Code(s): I50.33 - Acute on chronic diastolic (congestive) heart failure (2) Diabetes Qualifiers: Diabetes mellitus type: type 2 Diabetes mellitus [facility] insulin use: with [facility] use Diabetes mellitus complication status: without complication Qualified Code(s): E11.9 - Type 2 diabetes mellitus without complications; Z79.4 - [facility] (current) use of insulin (3) Hypertension Qualifiers: Hypertension type: essential hypertension Qualified Code(s): I10 - Essential (primary) hypertension (4) Acute and chronic respiratory failure ([id number]) Qualifiers: Respiratory failure complication: hypoxia and hypercapnia Qualified Code(s): J96.21 - Acute and chronic respiratory failure with hypoxia; J96.22 - Acute and chronic respiratory failure with hypercapnia (8) Hyperlipidemia Qualifiers: Hyperlipidemia type: unspecified Qualified Code(s): E78.5 - Hyperlipidemia, unspecified (9) GERD (gastroesophageal reflux disease) Qualifiers: Esophagitis presence: esophagitis presence not specified Qualified Code(s): K21.9 - Gastro-esophageal reflux disease without esophagitis
[2019-03-14] MEDS: Metoprolol XL (24 HR) Succ 50 MG TAB.ER.24H PO SCH (21:31)
[2019-03-15 04:23] LABS: Basophils % 0.1 %; Hematocrit 43.3 % (37.5-50.1); Hemoglobin 12.8 g/dL (12.9-16.9); Immature Granulocytes % 0.3 % (0-4); Lymphocytes # 1.4 K/mcL (0.6-4.6); Lymphocytes % 18.6 %; Mean Corpuscular HGB Conc 29.6 g/dL (31.6-35.5); Mean Corpuscular Hemoglobin 30.6 pg (28.0-33.3); Mean Corpuscular Volume 103.6 fL (83.0-100.0); Mean Platelet Volume 11.6 fL (9.4-12.4); Monocytes # 0.6 K/mcL (0.0-1.3); Monocytes % 7.5 %; Neutrophils # 5.5 K/mcL (1.6-8.9); Platelet Count 177 K/mcL (140-400); Red Blood Count 4.18 M/mcL (4.19-5.50); Segmented Neutrophils % 73.5 %; White Blood Count 7.4 K/mcL (4.3-11.1)
[2019-03-15] MEDS: Levalbuterol Neb 0.63 MG/3 ML IH SCH ×4 (04:39→22:53)
[2019-03-15 04:43] LABS: BUN/Creatinine Ratio 35 (6-26); Blood Urea Nitrogen 32 mg/dL (6-20); Calcium 8.7 mg/dL (8.6-10.3); Carbon Dioxide > 45 mEq/L (23-29); Chloride 94 mEq/L (98-107); Glucose 370 mg/dL (70-105); Magnesium 2.2 mg/dL (1.6-2.6); Osmolality,Calculated 318 (280-300); Potassium 4.1 mEq/L (3.5-5.1); Sodium 143 mEq/L (136-145); eGFR For African Americans > 60 (> 60); eGFR For Non-African Americans > 60 (> 60)
[2019-03-15] MEDS: Furosemide 40 MG/4 ML VIAL IVP SCH (09:06)
[2019-03-15] MEDS: Apixaban 5 MG TABLET PO SCH ×2 (09:06→20:57)
[2019-03-15] MEDS: Magnesium Oxide 400 MG TABLET PO SCH ×3 (09:06→20:57)
[2019-03-15] MEDS: diazePAM 5 MG TABLET PO SCH ×2 (09:06→20:57)
[2019-03-15] MEDS: predniSONE 10 MG TABLET PO SCH (09:06)
[2019-03-15] MEDS: Gabapentin 400 MG CAPSULE PO SCH ×4 (09:06→20:56)
[2019-03-15] MEDS: *HR* Amiodarone 200 MG TABLET PO SCH (09:06)
[2019-03-15] MEDS: Loratadine 10 MG TABLET PO SCH (09:06)
[2019-03-15] MEDS: Insulin DETEMIR 100 UNIT/ML X5UNITS SQ SCH (09:06)
[2019-03-15] MEDS: Metoprolol XL (24 HR) Succ 50 MG TAB.ER.24H PO SCH ×2 (09:06→20:57)
[2019-03-15] MEDS: Nicotine 21 MG PATCH.TD24 TD SCH (09:07)
[2019-03-15] MEDS: Insulin LISPRO 300 UNITS/3 ML VIAL SQ SCH ×4 (09:07→22:14)
[2019-03-15] MEDS: *HR* OxyCODONE Immed Rel 5 MG TABLET PO PRN ×2 (09:24→21:15)
--- NOTE | 2019-03-15 12:16 | Internal Med Progress Note ---
Hospitalist Progress Note - Encounter Date of Encounter: 03/15/19 Time of Encounter: 09:35 - Subjective Interval History: Mr Alexandra is awaiting evaluation by the senior living facility staff for placement due to his chronic elevated hypercapnia of note patient is asymptomatic GEN: Denies fever, chills or malaise HEENT: Denies headache blurriness, or dysphagia RESP: Denies SOB or cough CV: Denies chest pain or palpitations GI: Denies Nausea, vomiting, diarrhea or constipation Reviewed current in hospital medications with modifications see orders Reviewed Routine labs - Exam Vitals: Temp Pulse Resp BP Pulse Ox 98.8 F 106 17 112/63 98 03/15/19 12:03 03/15/19 12:03 03/15/19 12:03 03/15/19 04:41 03/15/19 09:25 Exam: GEN: Morbidly obese male, NAD, A&O x 3, pleasant and conversant via clip board, girl friend at bed side SKIN: [place] warm acyanotic not jaundice Neck: Trach noted HEART: Distant secondary to body habitus appears irregular no murmurs LUNGS: Distant secondary to body habitus appears CTA no wheeze with minimal crackles, overall non labored ABDOMEN; obese Soft, non tender or distended, BS x 4 normactive EXT: 2 + nonpitting LE edema no improvement more like lymphedema today with el ements of chronic venostasis , Pedal pulses 1+, radial pulses 2+ PSYCH: Mood and affect is appropriate - Assessment and Plan (1) CHF exacerbation Current Visit: Yes Status: Acute Assessment and Plan: patient with a total negative fluid balance of 22.2 litters, with IV Lasix he appears to be refractory to oral lasix but urine out put diminished, patient is not adhering to his fluid restriction diet or salt restriction diet. This may be okay if patient agrees to go palliative however he is not ready to go palliative admits to being nonadherent to his dietary restrictions. Will switch to torsemide which should have some bioavailability given his abdominal edema. (2) Diabetes Current Visit: Yes Status: Chronic Assessment and Plan: A1c of 10, continue basal short-acting insulin. POC ranges 256 to 384 while on Levemir to 70 twice a day, increase to 80 bid, of note he is nonadherence to treatment plan and dietary restriction (3) Hypertension Current Visit: Yes Status: Chronic Assessment and Plan: BP much improved since switch of metoprolol from q6h to just bid, but more ta chycardic we will switch him to Toprol-XL 100mg twice a day, appears to be tolerating this dose blood pressure has been systolic 112-127 (4) Acute and chronic respiratory failure ([id number]) Current Visit: Yes Status: Acute Assessment and Plan: Likely multifactorial his morbid obesity, obesity hypoventilation syndrome, DANIEL patient likely would need short-term ventilatory support plan is to discharge to SNF, however the facility is hesitant to take patient given his hypercapnia which likely is baseline for the patient ABG yesterday pH 7.29, PCO2 104, PO2 80 HCO3 50 patient is asymptomatic with intact mentation indicative of chronicity of his hypercapnia. Continue to encourage compliance with positive ventilation (5) Non-compliance Current Visit: Yes Status: Acute Assessment and Plan: Patient is noncompliance with the dietary restriction and his ADA diet and cardiac diet. His girlfriend denied bringing him outside hospital food from fast food as well as sodas, citing the patient himself orders to food from the online delivery room service food service attendant to his hospital bed. Patient did admit to ordering fast food to be delivered to his hospital bed and not adhering 1.5 L fluid restriction diet. Educated the patient and his girlfriend that we cannot get him better if he does not adhere to the treatment plan they appeared to have good understanding and comprehension of discussion however their insight and judgment is questionable (6) Atrial flutter with rapid ventricular response Current Visit: Yes Status: Acute Assessment and Plan: s/p ROSHAN cardioversion appreciate cardiology input. on apixaban, less with controlled since reducing his Lopressor will switch him to Toprol XL 100 twice a day, pulse 64-94 much better (7) History of DVT in adulthood Current Visit: Yes Status: Chronic Assessment and Plan: c/w apixaban 5mg/PO BID (8) Hyperlipidemia Current Visit: Yes Status: Chronic Assessment and Plan: On atorvastatin 80 mg (9) GERD (gastroesophageal reflux disease) Current Visit: Yes Status: Chronic Assessment and Plan: Continue omeprazole 20 mg by mouth daily. (10) Tracheostomy in place Current Visit: Yes Status: Chronic Assessment and Plan: Pulmonology recommended outpatient f/u with the ENT who placed the trach. (11) COPD exacerbation Current Visit: Yes Status: Suspected Assessment and Plan: Improving continue DuoNeb (12) Obesity hypoventilation syndrome Current Visit: Yes Status: Chronic Assessment and Plan: Patient will likely need short-term ventilatory support (13) History of smoking Current Visit: Yes Status: Chronic Assessment and Plan: Continue to encourage cessation (14) JEANCARLOS (acute kidney injury) Current Visit: Yes Status: Acute Assessment and Plan: Resolved Was Likely secondary to hypo-profusion improving from yesterday anticipates to improve as his cardiac output improves with diuresis DVT Prophylaxis: On apixaban - Time Spent with Patient Total time spent is greater than 50% in coordination of care (as documented) at patient's floor/unit and/or counseling patient: Internal Medicine: Result - Labs CBC & Chem 7: 03/15/19 04:00 03/15/19 04:00 Labs: Short CBC 03/15/19 Range/Units 04:00 WBC 7.4 (4.3-11.1) K/mcL Hgb 12.8 L (12.9-16.9) g/dL Hct 43.3 (37.5-50.1) % Plt Count 177 (140-400) K/mcL Neutrophils # 5.5 (1.6-8.9) K/mcL BMP 03/15/19 04:00 Sodium 143 Potassium 4.1 Chloride 94 L Carbon Dioxide > 45 H* BUN 32 H Creatinine 0.91 Glucose 370 H Calcium 8.7 - ABG Interpretation ABG results: ABG ABG pH 7.29 pH Units (7.32-7.45) L 03/11/19 22:26 ABG pCO2 104 mmHg (35-45) H* 03/11/19 22:26 ABG pO2 80 mmHg (85-104) L 03/11/19 22:26 ABG O2 Saturation 93 % (95-98) L 03/11/19 22:26 PT/INR, D-dimer PT 13.2 Seconds (9.4-12.1) H 03/06/19 00:33 Consult Discharge Plan - Plan Referrals: Jo Mcmahon, CLOTH FINISHING RANGE OPERATOR CHIEF [Advanced Practice Nurse] - 03/16/19 12:45 pm (1) CHF exacerbation Qualifiers: Heart failure type: diastolic Qualified Code(s): I50.33 - Acute on chronic diastolic (congestive) heart failure (2) Diabetes Qualifiers: Diabetes mellitus type: type 2 Diabetes mellitus long term care phlebotomist insulin use: with long term care phlebotomist use Diabetes mellitus complication status: without complication Qualified Code(s): E11.9 - Type 2 diabetes mellitus without complications; Z79.4 - superintendent marine oil terminal (current) use of insulin (3) Hypertension Qualifiers: Hypertension type: essential hypertension Qualified Code(s): I10 - Essential (primary) hypertension (4) Acute and chronic respiratory failure ([id number]) Qualifiers: Respiratory failure complication: hypoxia and hypercapnia Qualified Code(s): J96.21 - Acute and chronic respiratory failure with hypoxia; J96.22 - Acute and chronic respiratory failure with hypercapnia (8) Hyperlipidemia Qualifiers: Hyperlipidemia type: unspecified Qualified Code(s): E78.5 - Hyperlipidemia, unspecified (9) GERD (gastroesophageal reflux disease) Qualifiers: Esophagitis presence: esophagitis presence not specified Qualified Code(s): K21.9 - Gastro-esophageal reflux disease without esophagitis
[2019-03-15] MEDS: Torsemide 20 MG TABLET PO SCH (15:19)
[2019-03-15] MEDS ORDERED: Insulin DETEMIR 100 UNIT/ML X5UNITS SQ SCH (21:00)
[2019-03-16] MEDS ORDERED: Insulin LISPRO 300 UNITS/3 ML VIAL SQ ONE
[2019-03-16] MEDS: Levalbuterol Neb 0.63 MG/3 ML IH SCH ×4 (04:12→21:50)
[2019-03-16 05:50] LABS: Basophils % 0.1 %; Hematocrit 42.5 % (37.5-50.1); Hemoglobin 12.6 g/dL (12.9-16.9); Immature Granulocytes % 0.1 % (0-4); Lymphocytes # 1.7 K/mcL (0.6-4.6); Lymphocytes % 22.3 %; Mean Corpuscular HGB Conc 29.6 g/dL (31.6-35.5); Mean Corpuscular Hemoglobin 30.4 pg (28.0-33.3); Mean Corpuscular Volume 102.4 fL (83.0-100.0); Mean Platelet Volume 11.8 fL (9.4-12.4); Monocytes # 0.6 K/mcL (0.0-1.3); Monocytes % 7.1 %; Neutrophils # 5.4 K/mcL (1.6-8.9); Platelet Count 175 K/mcL (140-400); Red Blood Count 4.15 M/mcL (4.19-5.50); Segmented Neutrophils % 70.4 %; White Blood Count 7.7 K/mcL (4.3-11.1)
[2019-03-16 06:15] LABS: BUN/Creatinine Ratio 28 (6-26); Blood Urea Nitrogen 33 mg/dL (6-20); Calcium 8.6 mg/dL (8.6-10.3); Chloride 88 mEq/L (98-107); Glucose 387 mg/dL (70-105); Magnesium 1.9 mg/dL (1.6-2.6); Osmolality,Calculated 321 (280-300); Sodium 144 mEq/L (136-145); eGFR For African Americans > 60 (> 60); eGFR For Non-African Americans > 60 (> 60)
[2019-03-16 06:18] LABS: Carbon Dioxide > 45 mEq/L (23-29)
[2019-03-16] MEDS: Torsemide 20 MG TABLET PO SCH ×2 (06:32→15:26)
[2019-03-16] MEDS: diazePAM 5 MG TABLET PO SCH ×2 (08:54→20:30)
[2019-03-16] MEDS: Nicotine 21 MG PATCH.TD24 TD SCH (08:54)
[2019-03-16] MEDS: Magnesium Oxide 400 MG TABLET PO SCH ×3 (08:54→20:31)
[2019-03-16] MEDS: predniSONE 20 MG TABLET PO SCH (08:54)
[2019-03-16] MEDS: *HR* Amiodarone 200 MG TABLET PO SCH (08:54)
[2019-03-16] MEDS: Apixaban 5 MG TABLET PO SCH ×2 (08:54→20:30)
[2019-03-16] MEDS: Loratadine 10 MG TABLET PO SCH (08:54)
[2019-03-16] MEDS: Gabapentin 400 MG CAPSULE PO SCH ×4 (08:54→20:30)
[2019-03-16] MEDS: Metoprolol XL (24 HR) Succ 50 MG TAB.ER.24H PO SCH ×2 (08:55→20:30)
[2019-03-16] MEDS: Insulin DETEMIR 100 UNIT/ML X5UNITS SQ SCH ×2 (08:55→20:31)
[2019-03-16] MEDS: Insulin LISPRO 300 UNITS/3 ML VIAL SQ SCH ×4 (08:55→20:31)
[2019-03-16] MEDS: *HR* OxyCODONE Immed Rel 5 MG TABLET PO PRN ×2 (09:11→18:17)
[2019-03-16 10:26] LABS: ABG Base Excess 24 mEq/L (-2 to 3); ABG HCO3 53 mEq/L (21-27); ABG Oxygen Saturation 97 % (95-98); ABG PCO2 71 mmHg (35-45); ABG PH 7.48 pH Units (7.32-7.45); ABG PO2 93 mmHg (85-104); ABG TCO2 > 50 mEq/L (20-26); Blood Gas Modality ASSIST CONTROL; Blood Gas PEEP 5 cm H2O; Blood Gas Pressure Support 12 cm H2O; Blood Gas VT 500 cc
[2019-03-16] MEDS ORDERED: Dexamethasone OPTH Drop 5 ML BOTTLE RIGHT EYE SCH (15:00)
[2019-03-16] MEDS: Dexamethasone OPTH Drop 5 ML BOTTLE RIGHT EAR SCH ×2 (15:27→20:31)
--- NOTE | 2019-03-16 19:45 | Internal Med Progress Note ---
Hospitalist Progress Note - Encounter Date of Encounter: 03/16/19 Time of Encounter: 10:00 - Subjective Interval History: Mr Alexandra is complaining of ear pain in the right ear denies tinnitus but reports pressure in his inner ear. Of note he is still being considered for placement to a skilled facility capable of his vent management GEN: Denies fever, chills or malaise HEENT: Denies headache blurriness, or dysphagia RESP: Denies SOB or cough CV: Denies chest pain or palpitations GI: Denies Nausea, vomiting, diarrhea or constipation Reviewed current in hospital medications with modifications see orders Reviewed Routine labs - Exam Vitals: Temp Pulse Resp BP Pulse Ox 97.9 F 117 18 117/48 96 03/16/19 07:49 03/16/19 17:16 03/16/19 17:16 03/16/19 17:16 03/16/19 16:20 Exam: GEN: Morbidly obese male NAD, A&O x 3, Pleasant and conversant Og at bedside HEENT: Otoscopic exam right ear canal patent although stained with blood tympanic membrane intact with some cloudiness but no erythema, left ear canal patent tympanic membrane intact no erythema or cloudiness Neck: Trach noted SKIN: [place] warm acyanotic not jaundice HEART: Distant due to body habitus appears irregular no murmurs LUNGS: Distant secondary to body habitus appears CTA no wheeze or crackles, overall non labored ABDOMEN; obese with large pannus Soft, non tender or distended, BS x 4 normactive EXT: Diffuse 2+ nonpitting LE edema, Pedal pulses 1+, radial pulses 2+ PSYCH: Mood and affect is appropriate s - Assessment and Plan (1) Ear pain, right Current Visit: Yes Status: Acute Assessment and Plan: Otoscopic view of his right ear was unrevealing except for scratched EAC Stain with blood patient does admit to stick in his fingers and his area due to what he describes as pressure/pain suspect Lasix induced otic side effect although he denies tinnitis, treat with topical steroids (2) CHF exacerbation Current Visit: Yes Status: Acute Assessment and Plan: patient with a total negative fluid balance of 42.4 litters, with IV Lasix he appears to be refractory to oral lasix but urine out put diminished, patient is not adhering to his fluid restriction diet or salt restriction diet. This may be okay if patient agrees to go palliative however he is not ready to go palliative admits to being nonadherent to his dietary restrictions. Will switch to torsemide which should have some bioavailability given his abdominal edema. He had good diuresis with torsemide (3) Diabetes Current Visit: Yes Status: Chronic Assessment and Plan: A1c of 10, continue basal short-acting insulin. POC ranges 256 to 384 while on Levemir to 70 twice a day, increase to 80 bid, of note he is nonadherence to treatment plan and dietary restriction patient remains noncompliant as such will over him with Levemir 100 twice a day since he has erratic eating habits, eating without notifying the nurses as such not getting any coverage with short acting insulin (4) Hypertension Current Visit: Yes Status: Chronic Assessment and Plan: BP much improved since switch of metoprolol from q6h to just bid, but more tachycardic we will switch him to Toprol-XL 100mg twice a day, appears to be tolerating this dose blood pressure has been systolic 112-127 (5) Acute and chronic respiratory failure ([id number]) Current Visit: Yes Status: Acute Assessment and Plan: Likely multifactorial his morbid obesity, obesity hypoventilation syndrome, DANIEL patient likely would need short-term ventilatory support plan is to discharge to SNF, however the facility is hesitant to take patient given his hypercapnia which likely is baseline for the patient ABG yesterday pH 7.29, PCO2 104, PO2 80 HCO3 50 patient is asymptomatic with intact mentation indicative of chronicity of his hypercapnia. Continue to encourage compliance with positive ventilation (6) Non-compliance Current Visit: Yes Status: Acute Assessment and Plan: Patient is noncompliance with the dietary restriction and his ADA diet and cardiac diet. His girlfriend denied bringing him outside hospital food from fast food as well as sodas, citing the patient himself orders to food from the online delivery research food technologist to his hospital bed. Patient did admit to ordering fast food to be delivered to his hospital bed and not adhering 1.5 L fluid restriction diet. Educated the patient and his girlfriend that we cannot get him better if he does not adhere to the treatment plan they appeared to have good understanding and comprehension of discussion however their insight and judgment is questionable (7) Atrial flutter with rapid ventricular response Current Visit: Yes Status: Acute Assessment and Plan: s/p ROSHAN cardioversion appreciate cardiology input. on apixaban, less with controlled since reducing his Lopressor will switch him to Toprol XL 100 twice a day, pulse 64-94 much better (8) History of DVT in adulthood Current Visit: Yes Status: Chronic Assessment and Plan: c/w apixaban 5mg/PO BID (9) Hyperlipidemia Current Visit: Yes Status: Chronic Assessment and Plan: On atorvastatin 80 mg (10) GERD (gastroesophageal reflux disease) Current Visit: Yes Status: Chronic Assessment and Plan: Continue omeprazole 20 mg by mouth daily. (11) Tracheostomy in place Current Visit: Yes Status: Chronic Assessment and Plan: Pulmonology recommended outpatient f/u with the ENT who placed the trach. (12) COPD exacerbation Current Visit: Yes Status: Suspected Assessment and Plan: Improving continue DuoNeb (13) Obesity hypoventilation syndrome Current Visit: Yes Status: Chronic Assessment and Plan: Patient will likely need short-term ventilatory support (14) History of smoking Current Visit: Yes Status: Chronic Assessment and Plan: Continue to encourage cessation (15) JEANCARLOS (acute kidney injury) Current Visit: Yes Status: Acute Assessment and Plan: Resolved Was Likely secondary to hypo-profusion improving from yesterday anticipates to improve as his cardiac output improves with diuresis - Time Spent with Patient Total time spent is greater than 50% in coordination of care (as documented) at patient's floor/unit and/or counseling patient: Internal Medicine: Result - Labs CBC & Chem 7: 03/16/19 04:00 03/16/19 04:00 Labs: Short CBC 03/16/19 Range/Units 04:00 WBC 7.7 (4.3-11.1) K/mcL Hgb 12.6 L (12.9-16.9) g/dL Hct 42.5 (37.5-50.1) % Plt Count 175 (140-400) K/mcL Neutrophils # 5.4 (1.6-8.9) K/mcL BMP 03/16/19 04:00 Sodium 144 Potassium 4.0 Chloride 88 L Carbon Dioxide > 45 H* BUN 33 H Creatinine 1.18 Glucose 387 H Calcium 8.6 - ABG Interpretation ABG results: ABG ABG pH 7.48 pH Units (7.32-7.45) H 03/16/19 10:15 ABG pCO2 71 mmHg (35-45) H* 03/16/19 10:15 ABG pO2 93 mmHg (85-104) 03/16/19 10:15 ABG O2 Saturation 97 % (95-98) 03/16/19 10:15 PT/INR, D-dimer PT 13.2 Seconds (9.4-12.1) H 03/06/19 00:33 Consult Discharge Plan - Plan Referrals: Jo Mcmahon, BUSH HOG OPERATOR [Advanced Practice Nurse] - 03/16/19 12:45 pm (2) CHF exacerbation Qualifiers: Heart failure type: diastolic Qualified Code(s): I50.33 - Acute on chronic diastolic (congestive) heart failure (3) Diabetes Qualifiers: Diabetes mellitus type: type 2 Diabetes mellitus [facility] insulin use: with [facility] use Diabetes mellitus complication status: without complication Qualified Code(s): E11.9 - Type 2 diabetes mellitus without complications; Z79.4 - custodial (current) use of insulin (4) Hypertension Qualifiers: Hypertension type: essential hypertension Qualified Code(s): I10 - Essential (primary) hypertension (5) Acute and chronic respiratory failure ([id number]) Qualifiers: Respiratory failure complication: hypoxia and hypercapnia Qualified Code(s): J96.21 - Acute and chronic respiratory failure with hypoxia; J96.22 - Acute and chronic respiratory failure with hypercapnia (9) Hyperlipidemia Qualifiers: Hyperlipidemia type: unspecified Qualified Code(s): E78.5 - Hyperlipidemia, unspecified (10) GERD (gastroesophageal reflux disease) Qualifiers: Esophagitis presence: esophagitis presence not specified Qualified Code(s): K21.9 - Gastro-esophageal reflux disease without esophagitis
[2019-03-17] MEDS: Levalbuterol Neb 0.63 MG/3 ML IH SCH ×2 (04:14→11:06)
[2019-03-17 04:58] LABS: Basophils % 0.2 %; Hematocrit 43.9 % (37.5-50.1); Hemoglobin 13.1 g/dL (12.9-16.9); Immature Granulocytes % 0.3 % (0-4); Lymphocytes # 2.3 K/mcL (0.6-4.6); Lymphocytes % 23.9 %; Mean Corpuscular HGB Conc 29.8 g/dL (31.6-35.5); Mean Corpuscular Volume 100.5 fL (83.0-100.0); Mean Platelet Volume 11.6 fL (9.4-12.4); Monocytes # 0.7 K/mcL (0.0-1.3); Monocytes % 7.7 %; Neutrophils # 6.5 K/mcL (1.6-8.9); Platelet Count 199 K/mcL (140-400); Red Blood Count 4.37 M/mcL (4.19-5.50); Red Cell Distribution Width 13.9 % (11.5-14.5); Segmented Neutrophils % 67.9 %; White Blood Count 9.5 K/mcL (4.3-11.1)
[2019-03-17 05:43] LABS: BUN/Creatinine Ratio 30 (6-26); Blood Urea Nitrogen 38 mg/dL (6-20); Calcium 8.8 mg/dL (8.6-10.3); Carbon Dioxide > 45 mEq/L (23-29); Chloride 86 mEq/L (98-107); Glucose 260 mg/dL (70-105); Magnesium 2.1 mg/dL (1.6-2.6); Osmolality,Calculated 312 (280-300); Potassium 3.8 mEq/L (3.5-5.1); Sodium 142 mEq/L (136-145); eGFR For African Americans > 60 (> 60); eGFR For Non-African Americans > 60 (> 60)
[2019-03-17] MEDS: Torsemide 20 MG TABLET PO SCH (06:13)
[2019-03-17 07:07] VITALS: BP 98/47
[2019-03-17] MEDS: Gabapentin 400 MG CAPSULE PO SCH ×2 (07:50→12:17)
[2019-03-17] MEDS: Loratadine 10 MG TABLET PO SCH (07:50)
[2019-03-17] MEDS: diazePAM 5 MG TABLET PO SCH (07:50)
[2019-03-17] MEDS: Nicotine 21 MG PATCH.TD24 TD SCH (07:50)
[2019-03-17] MEDS: predniSONE 20 MG TABLET PO SCH (07:50)
[2019-03-17] MEDS: Apixaban 5 MG TABLET PO SCH (07:50)
[2019-03-17] MEDS: Dexamethasone OPTH Drop 5 ML BOTTLE RIGHT EAR SCH (07:52)
[2019-03-17] MEDS: Insulin LISPRO 300 UNITS/3 ML VIAL SQ SCH ×2 (07:52→12:17)
[2019-03-17] MEDS: Insulin DETEMIR 100 UNIT/ML X5UNITS SQ SCH (07:53)
[2019-03-17] MEDS: Magnesium Oxide 400 MG TABLET PO SCH (07:53)
[2019-03-17] MEDS: Metoprolol XL (24 HR) Succ 50 MG TAB.ER.24H PO SCH (07:54)
[2019-03-17] MEDS: *HR* Amiodarone 200 MG TABLET PO SCH (07:55)
[2019-03-17] MEDS: *HR* OxyCODONE Immed Rel 5 MG TABLET PO PRN (08:02)
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
--- NOTE | 2019-03-17 10:24 | Physician Discharge Referral ---
ExtendedCare Referral Info Institutional Level of Care: Skilled - Diagnosis (1) Atrial flutter with rapid ventricular response Status: Acute (2) CHF exacerbation Status: Acute (3) Diabetes Status: Chronic (4) History of DVT in adulthood Status: Chronic (5) Hypertension Status: Chronic (6) Hyperlipidemia Status: Chronic (7) GERD (gastroesophageal reflux disease) Status: Chronic (8) Tracheostomy in place Status: Chronic (9) COPD exacerbation Status: Suspected (10) Acute and chronic respiratory failure ([id number]) Status: Acute (11) Obesity hypoventilation syndrome Status: Chronic (12) History of smoking Status: Chronic (13) JEANCARLOS (acute kidney injury) Status: Acute (14) Non-compliance Status: Acute (15) Ear pain, right Status: Acute - Transfer Medications Home Medications: Apixaban [Eliquis] 5 mg PO BID 03/06/19 [History] Atorvastatin Calcium [Lipitor] 80 mg PO HS 03/06/19 [History] Escitalopram [Lexapro] 10 mg PO DAILY 03/06/19 [History] Ferrous Sulfate [Iron] 325 mg PO BID 03/06/19 [History] Gabapentin [Neurontin] 800 mg PO QID 03/06/19 [History] Insulin Glargine,Hum.rec.anlog [Basaglar Kwikpen U-100] 60 unit SQ HS 03/06/19 [History] Insulin LISPRO [HumaLOG] 15 unit SQ TIDWM 03/06/19 [History] Loratadine [Allergy Relief] 10 mg PO DAILY 03/06/19 [History] Magnesium Oxide [Magnesium] 400 mg PO TID 03/06/19 [History] OxyCODONE Immed Rel [Roxicodone 10 MG] 10 mg PO BID PRN 03/06/19 [History] Pantoprazole Sodium [Protonix] 40 mg PO DAILY 03/06/19 [History] diazePAM [Valium] 5 mg PO BID PRN 03/06/19 [History] Amiodarone [Cordarone] 400 mg PO DAILY tablet 03/17/19 [Rx] Metoprolol XL (24 HR) Succ [Toprol Xl] 100 mg PO BID tab.er.24h 03/17/19 [Rx] Torsemide [Demadex] 80 mg PO 0700,1400 tablet 03/17/19 [Rx] predniSONE [PredniSONE] See Taper PO DAILY tablet 03/17/19 [Rx] Allergies/Adverse Reactions: Allergy/AdvReac Type Severity Reaction Status Date / Time morphine Allergy Anaphylaxis Verified 03/06/19 10:09 - Respiratory Orders Smoking Cessation: Smoking cessation has been advised. For more information, call the [place] Tobacco Quit Line at 8-910-QTSUNOW. CERTIFICATION: I certify that the transfer of the above named patient to an Extended Care Facility is necessary for the continuing treatment of the diagnosis listed. The above information is true and accurate reflection of patient's current condition. Confidential - Redisclosure prohibited without a patient's written consent.
[2019-03-17] MEDS ORDERED: Nystatin POWDER 30 GM BOTTLE TP SCH (11:30)
== END 2019-03-17 14:04 | DRG 133 ==
LOC: 2NNU → SUATTDRO 03-06 00:10
PROVIDERS: ADMIT Family Medicine; ATTEND Internal Medicine

== ENCOUNTER 2021-04-03 17:31 | Inpatient (IN) ==
[2021-04-03 18:35] LABS: Basophils % 0.2 %; Hematocrit 40.9 % (37.5-50.1); Hemoglobin 12.1 g/dL (12.9-16.9); Immature Granulocytes % 0.5 % (0-4); Lymphocytes # 0.7 K/mcL (0.6-4.6); Lymphocytes % 11.2 %; Mean Corpuscular HGB Conc 29.6 g/dL (31.6-35.5); Mean Corpuscular Hemoglobin 30.6 pg (28.0-33.3); Mean Corpuscular Volume 103.3 fL (83.0-100.0); Mean Platelet Volume 11.6 fL (9.4-12.4); Monocytes # 0.4 K/mcL (0.0-1.3); Monocytes % 6.9 %; Neutrophils # 5.1 K/mcL (1.6-8.9); Platelet Count 133 K/mcL (140-400); Red Blood Count 3.96 M/mcL (4.19-5.50); Red Cell Distribution Width 13.6 % (11.5-14.5); Segmented Neutrophils % 81.2 %; White Blood Count 6.2 K/mcL (4.3-11.1)
[2021-04-03 18:52] LABS: INR 1.1; Prothrombin Time 12.7 Seconds (9.4-12.1)
[2021-04-03 18:54] LABS: Activated Partial Thrombo Time 40.1 Seconds (26.0-36.0)
[2021-04-03 19:24] LABS: Alanine Aminotransferase 28 Units/L (7-52); Albumin 3.1 g/dL (3.5-5.7); Albumin/Globulin Ratio 1.1 (1.1-2.2); Alkaline Phosphatase 59 Units/L (34-104); Aspartate Amino Transferase 25 Units/L (13-39); BUN/Creatinine Ratio 19 (6-26); Bilirubin,Direct 0.1 mg/dL (0.0-0.2); Bilirubin,Indirect 0.3 mg/dL (0.0-1.0); Bilirubin,Total 0.4 mg/dL (0.3-1.0); Blood Urea Nitrogen 27 mg/dL (6-20); Calcium 7.9 mg/dL (8.6-10.3); Carbon Dioxide 33 mEq/L (23-29); Chloride 97 mEq/L (98-107); Globulin 2.8 g/dL (2.4-3.5); Glucose 325 mg/dL (70-105); Osmolality,Calculated 302 (280-300); Potassium 4.3 mEq/L (3.5-5.1); Sodium 137 mEq/L (136-145); Total Protein 5.9 g/dL (6.4-8.9); Troponin I 0.04 ng/mL (< 0.04); eGFR For African Americans > 60 (> 60); eGFR For Non-African Americans 54 (> 60)
[2021-04-03] MEDS ORDERED: Azithromycin 500 MG in 0.9 % Sodium Chloride 250 ML IVPB ONE (19:55)
[2021-04-03] MEDS ORDERED: Aspirin 325 MG TABLET PO ONE (20:01)
[2021-04-03] MEDS ORDERED: Naloxone 0.4 MG/ML INJ IVP PRN (21:26)
[2021-04-03] MEDS ORDERED: Remdesivir 200 MG in 0.9 % Sodium Chloride 100 ML IVPB ONE (22:08)
[2021-04-03] MEDS ORDERED: Dextrose Gel 15 GM/37.5 ML TUBE PO PRN ×2 (22:27)
[2021-04-03] MEDS ORDERED: D5% in Water 1,000 ML IVC PRN (22:27)
[2021-04-03] MEDS ORDERED: *HR* Dextrose 50 % in Water (Syg) 50 ML SYRINGE IVP PRN (22:27)
[2021-04-03] MEDS ORDERED: Insulin DETEMIR 100 UNIT/ML X5UNITS SUBQ SCH (22:30)
[2021-04-04] MEDS ORDERED: Insulin LISPRO 300 UNITS/3 ML VIAL SUBQ ONE ×3 (02:04→05:27)
[2021-04-04] MEDS: Ipratropium 1 PUFF INHALER IH SCH ×4 (03:56→21:57)
[2021-04-04] MEDS: Insulin LISPRO 300 UNITS/3 ML VIAL SUBQ SCH ×5 (04:30→23:11)
[2021-04-04 08:25] LABS: Hematocrit 39.5 % (37.5-50.1); Hemoglobin 12.2 g/dL (12.9-16.9); Mean Corpuscular HGB Conc 30.9 g/dL (31.6-35.5); Mean Corpuscular Volume 103.7 fL (83.0-100.0); Mean Platelet Volume 11.9 fL (9.4-12.4); Platelet Count 119 K/mcL (140-400); Red Blood Count 3.81 M/mcL (4.19-5.50); Red Cell Distribution Width 13.6 % (11.5-14.5); White Blood Count 3.6 K/mcL (4.3-11.1)
[2021-04-04 08:32] LABS: Albumin 3.3 g/dL (3.5-5.7); Albumin/Globulin Ratio 1.2 (1.1-2.2); BUN/Creatinine Ratio 23 (6-26); Bilirubin,Direct 0.1 mg/dL (0.0-0.2); Bilirubin,Indirect 0.2 mg/dL (0.0-1.0); Bilirubin,Total 0.3 mg/dL (0.3-1.0); Blood Urea Nitrogen 31 mg/dL (6-20); Calcium 7.9 mg/dL (8.6-10.3); Carbon Dioxide 35 mEq/L (23-29); Chloride 95 mEq/L (98-107); Globulin 2.7 g/dL (2.4-3.5); Glucose 508 mg/dL (70-105); Osmolality,Calculated 309 (280-300); Potassium 5.3 mEq/L (3.5-5.1); Sodium 135 mEq/L (136-145); eGFR For African Americans > 60 (> 60); eGFR For Non-African Americans 58 (> 60)
[2021-04-04] MEDS ORDERED: Insulin DETEMIR 100 UNIT/ML X5UNITS SUBQ SCH (09:00)
[2021-04-04] MEDS: Pregabalin 75 MG CAPSULE PO SCH ×3 (09:14→21:25)
[2021-04-04] MEDS: Apixaban 5 MG TABLET PO SCH ×2 (09:15→21:25)
[2021-04-04] MEDS ORDERED: Insulin Human Regular 10 UNIT in 0.9 % Sodium Chloride 10 ML IV ONE (09:20)
[2021-04-04] MEDS: Insulin DETEMIR 100 UNIT/ML X5UNITS SUBQ SCH ×2 (10:44→21:40)
[2021-04-04] MEDS ORDERED: 0.9 % Sodium Chloride 1,000 ML IVC SCH (15:00)
[2021-04-04] MEDS: levoFLOXacin 750 MG/150 ML 750 MG/150 ML BAG IVPB SCH (15:33)
[2021-04-04 20:09] LABS: C-Reactive Protein 55 mg/L (Less than 10); Ferritin > 1500 ng/mL (20-250); Lactate Dehydrogenase 286 Units/L (140-271)
[2021-04-05] MEDS: Remdesivir 100 MG in 0.9 % Sodium Chloride 100 ML IVPB SCH ×2 (00:08→23:23)
[2021-04-05 03:22] LABS: Hematocrit 43.2 % (37.5-50.1); Hemoglobin 12.9 g/dL (12.9-16.9); Immature Granulocytes % 0.7 % (0-4); Lymphocytes # 0.5 K/mcL (0.6-4.6); Lymphocytes % 10.2 %; Mean Corpuscular HGB Conc 29.9 g/dL (31.6-35.5); Mean Corpuscular Hemoglobin 30.5 pg (28.0-33.3); Mean Corpuscular Volume 102.1 fL (83.0-100.0); Mean Platelet Volume 11.9 fL (9.4-12.4); Monocytes # 0.4 K/mcL (0.0-1.3); Monocytes % 9.3 %; Neutrophils # 3.7 K/mcL (1.6-8.9); Platelet Count 140 K/mcL (140-400); Red Blood Count 4.23 M/mcL (4.19-5.50); Red Cell Distribution Width 13.2 % (11.5-14.5); Segmented Neutrophils % 79.8 %; White Blood Count 4.6 K/mcL (4.3-11.1)
[2021-04-05 03:41] LABS: Alanine Aminotransferase 26 Units/L (7-52); Albumin 3.2 g/dL (3.5-5.7); Albumin 3.3 g/dL (3.5-5.7); Alkaline Phosphatase 58 Units/L (34-104); Aspartate Amino Transferase 24 Units/L (13-39); BUN/Creatinine Ratio 25 (6-26); Bilirubin,Direct 0.1 mg/dL (0.0-0.2); Bilirubin,Indirect 0.2 mg/dL (0.0-1.0); Bilirubin,Total 0.3 mg/dL (0.3-1.0); Blood Urea Nitrogen 28 mg/dL (6-20); Calcium 8.1 mg/dL (8.6-10.3); Carbon Dioxide 39 mEq/L (23-29); Chloride 97 mEq/L (98-107); Globulin 3.2 g/dL (2.4-3.5); Glucose 392 mg/dL (70-105); Osmolality,Calculated 310 (280-300); Potassium 5.5 mEq/L (3.5-5.1); Sodium 139 mEq/L (136-145); Total Protein 6.4 g/dL (6.4-8.9); Total Protein 6.5 g/dL (6.4-8.9); eGFR For African Americans > 60 (> 60); eGFR For Non-African Americans > 60 (> 60)
[2021-04-05] MEDS: Ipratropium 1 PUFF INHALER IH SCH ×4 (04:03→21:02)
[2021-04-05] MEDS ORDERED: 0.9 % Sodium Chloride 500 ML IVC ONE (08:29)
[2021-04-05 08:41] LABS: Acinetobacter baumannii by PCR Not Detected (Not Detect); Candida albicans by PCR Not Detected (Not Detect); Candida glabrata by PCR Not Detected (Not Detect); Candida krusei by PCR Not Detected (Not Detect); Candida parapsilosis by PCR Not Detected (Not Detect); Candida tropicalis by PCR Not Detected (Not Detect); Enterobacter cloacae Cmplx PCR Not Detected (Not Detect); Enterobacteriaceae by PCR Not Detected (Not Detect); Enterococcus by PCR Not Detected (Not Detect); Escherichia coli by PCR Not Detected (Not Detect); Klebsiella oxytoca by PCR Not Detected (Not Detect); Klebsiella pneumoniae by PCR Not Detected (Not Detect); Proteus by PCR Not Detected (Not Detect); Pseudomonas aeruginosa by PCR Not Detected (Not Detect); Serratia marcescens by PCR Not Detected (Not Detect); Staphylococcus aureus by PCR Not Detected (Not Detect); Staphylococcus by PCR Not Detected (Not Detect); Streptococcus agalactiae(B)PCR Not Detected (Not Detect); Streptococcus by PCR DETECTED (Not Detect); Streptococcus pneumoniae PCR Not Detected (Not Detect); Streptococcus pyogenes (A) PCR Not Detected (Not Detect)
[2021-04-05] MEDS: Pregabalin 75 MG CAPSULE PO SCH ×3 (09:33→21:18)
[2021-04-05] MEDS: Insulin LISPRO 300 UNITS/3 ML VIAL SUBQ SCH ×4 (09:34→21:24)
[2021-04-05] MEDS: Apixaban 5 MG TABLET PO SCH (09:35)
[2021-04-05] MEDS: Insulin DETEMIR 100 UNIT/ML X5UNITS SUBQ SCH ×2 (09:35→21:21)
[2021-04-05] MEDS: *HR* Amiodarone 200 MG TABLET PO SCH (14:34)
[2021-04-05] MEDS: levoFLOXacin 750 MG/150 ML 750 MG/150 ML BAG IVPB SCH (14:34)
[2021-04-05] MEDS: Metoprolol XL (24 HR) Succ 50 MG TAB.ER.24H PO SCH ×2 (14:34→21:36)
[2021-04-05] MEDS ORDERED: Furosemide 20 MG/2 ML VIAL IVP ONE (15:03)
[2021-04-05 15:19] LABS: BUN/Creatinine Ratio 21 (6-26); Blood Urea Nitrogen 23 mg/dL (6-20); Carbon Dioxide 39 mEq/L (23-29); Chloride 98 mEq/L (98-107); Glucose 305 mg/dL (70-105); Osmolality,Calculated 305 (280-300); Potassium 4.9 mEq/L (3.5-5.1); Sodium 140 mEq/L (136-145); eGFR For African Americans > 60 (> 60); eGFR For Non-African Americans > 60 (> 60)
[2021-04-05] MEDS ORDERED: *HR* Metoprolol 5 MG/5 ML VIAL IVP PRN (16:56)
[2021-04-05] MEDS ORDERED: Metoprolol XL (24 HR) Succ 50 MG TAB.ER.24H PO SCH (21:00)
[2021-04-05] MEDS: Budesonide/Formoterol 160/4.5 1 PUFF INH IH SCH (21:02)
[2021-04-06] MEDS: Ipratropium 1 PUFF INHALER IH SCH ×4 (03:45→20:01)
[2021-04-06 05:06] LABS: Hematocrit 41.6 % (37.5-50.1); Immature Granulocytes % 0.5 % (0-4); Lymphocytes # 0.5 K/mcL (0.6-4.6); Lymphocytes % 11.6 %; Mean Corpuscular HGB Conc 31.3 g/dL (31.6-35.5); Mean Corpuscular Hemoglobin 31.9 pg (28.0-33.3); Mean Platelet Volume 11.3 fL (9.4-12.4); Monocytes # 0.4 K/mcL (0.0-1.3); Monocytes % 9.3 %; Neutrophils # 3.5 K/mcL (1.6-8.9); Platelet Count 167 K/mcL (140-400); Red Blood Count 4.08 M/mcL (4.19-5.50); Red Cell Distribution Width 13.2 % (11.5-14.5); Segmented Neutrophils % 78.6 %; White Blood Count 4.4 K/mcL (4.3-11.1)
[2021-04-06 05:54] LABS: Alanine Aminotransferase 21 Units/L (7-52); Alkaline Phosphatase 52 Units/L (34-104); Aspartate Amino Transferase 20 Units/L (13-39); BUN/Creatinine Ratio 23 (6-26); Bilirubin,Direct 0.1 mg/dL (0.0-0.2); Bilirubin,Indirect 0.3 mg/dL (0.0-1.0); Bilirubin,Total 0.4 mg/dL (0.3-1.0); Blood Urea Nitrogen 23 mg/dL (6-20); Calcium 7.8 mg/dL (8.6-10.3); Carbon Dioxide 42 mEq/L (23-29); Chloride 95 mEq/L (98-107); Glucose 291 mg/dL (70-105); Osmolality,Calculated 306 (280-300); Potassium 4.3 mEq/L (3.5-5.1); Sodium 141 mEq/L (136-145); eGFR For African Americans > 60 (> 60); eGFR For Non-African Americans > 60 (> 60)
[2021-04-06] MEDS: Insulin LISPRO 300 UNITS/3 ML VIAL SUBQ SCH ×4 (08:31→20:25)
[2021-04-06] MEDS: Metoprolol XL (24 HR) Succ 50 MG TAB.ER.24H PO SCH ×2 (08:31→19:48)
[2021-04-06] MEDS: Pregabalin 75 MG CAPSULE PO SCH ×3 (08:31→19:48)
[2021-04-06] MEDS: *HR* Amiodarone 200 MG TABLET PO SCH (08:31)
[2021-04-06] MEDS: Insulin DETEMIR 100 UNIT/ML X5UNITS SUBQ SCH ×2 (08:37→20:20)
[2021-04-06] MEDS: Budesonide/Formoterol 160/4.5 1 PUFF INH IH SCH ×2 (10:35→20:01)
[2021-04-06] MEDS: Dexmedetomidine HCl 400 MCG/100 ML MLS IVC SCH ×3 (11:48→21:45)
[2021-04-06] MEDS: Apixaban 5 MG TABLET PO SCH ×2 (12:53→19:48)
[2021-04-06] MEDS ORDERED: Furosemide 20 MG/2 ML VIAL IVP ONE (14:39)
[2021-04-06] MEDS: levoFLOXacin 750 MG/150 ML 750 MG/150 ML BAG IVPB SCH (15:36)
[2021-04-06] MEDS: Midazolam HCl 50 MG/100 ML IV.SOLN IVC SCH ×2 (17:42→23:36)
[2021-04-06] MEDS: FentaNYL (PF) 1,000 MCG/100 ML IV.SOLN IVC SCH ×2 (17:56→23:53)
[2021-04-06] MEDS: Cisatracurium 200 MG in 0.9 % Sodium Chloride 180 ML IVC SCH ×2 (18:27→23:25)
[2021-04-06] MEDS: Remdesivir 100 MG in 0.9 % Sodium Chloride 100 ML IVPB SCH (22:19)
[2021-04-06] MEDS ORDERED: *HR* Heparin 5,000 UNIT/ML VIAL IVP PRN ×2 (23:37)
[2021-04-06] MEDS ORDERED: *HR* Heparin 5,000 UNIT/ML VIAL IVP ONE (23:37)
[2021-04-07] MEDS: Heparin 25,000UNIT/250ML 1/2NS 25,000 UNIT/250 ML IV.SOLN IVC SCH ×3 (00:42→21:07)
[2021-04-07 01:03] LABS: Heparin anti-factor XA UFH 0.33 IU/mL (0.30-0.70); INR 1.2; Prothrombin Time 13.1 Seconds (9.4-12.1)
[2021-04-07] MEDS: Ipratropium 1 PUFF INHALER IH SCH ×4 (04:15→20:37)
[2021-04-07] MEDS: Dexmedetomidine HCl 400 MCG/100 ML MLS IVC SCH ×3 (05:14→18:20)
[2021-04-07] MEDS: FentaNYL (PF) 1,000 MCG/100 ML IV.SOLN IVC SCH ×4 (05:15→22:51)
[2021-04-07] MEDS: Cisatracurium 200 MG in 0.9 % Sodium Chloride 180 ML IVC SCH ×4 (05:15→21:08)
[2021-04-07 05:27] LABS: Bilirubin,Indirect 0.4 mg/dL (0.0-1.0); Bilirubin,Total 0.4 mg/dL (0.3-1.0); Globulin 3.1 g/dL (2.4-3.5); Total Protein 6.1 g/dL (6.4-8.9)
[2021-04-07 05:29] LABS: Hematocrit 41.8 % (37.5-50.1); Hemoglobin 12.7 g/dL (12.9-16.9); Immature Granulocytes % 0.5 % (0-4); Lymphocytes # 0.5 K/mcL (0.6-4.6); Lymphocytes % 11.8 %; Mean Corpuscular HGB Conc 30.4 g/dL (31.6-35.5); Mean Corpuscular Hemoglobin 30.6 pg (28.0-33.3); Mean Corpuscular Volume 100.7 fL (83.0-100.0); Mean Platelet Volume 12.6 fL (9.4-12.4); Monocytes # 0.3 K/mcL (0.0-1.3); Monocytes % 6.9 %; Neutrophils # 3.5 K/mcL (1.6-8.9); Platelet Count 152 K/mcL (140-400); Red Blood Count 4.15 M/mcL (4.19-5.50); Red Cell Distribution Width 13.2 % (11.5-14.5); Segmented Neutrophils % 80.8 %; White Blood Count 4.3 K/mcL (4.3-11.1)
[2021-04-07 05:37] LABS: Alanine Aminotransferase 21 Units/L (7-52); Alkaline Phosphatase 51 Units/L (34-104); Aspartate Amino Transferase 23 Units/L (13-39); BUN/Creatinine Ratio 28 (6-26); Bilirubin,Total 0.3 mg/dL (0.3-1.0); Blood Urea Nitrogen 28 mg/dL (6-20); Calcium 7.6 mg/dL (8.6-10.3); Carbon Dioxide 39 mEq/L (23-29); Chloride 94 mEq/L (98-107); Globulin 3.1 g/dL (2.4-3.5); Glucose 282 mg/dL (70-105); Osmolality,Calculated 306 (280-300); Sodium 140 mEq/L (136-145); Total Protein 6.1 g/dL (6.4-8.9); eGFR For African Americans > 60 (> 60); eGFR For Non-African Americans > 60 (> 60)
[2021-04-07 05:51] LABS: ABG Base Excess 11 mEq/L (-2 to 3); ABG HCO3 41 mEq/L (21-27); ABG Oxygen Saturation 82 % (95-98); ABG PCO2 82 mmHg (35-45); ABG PH 7.31 pH Units (7.32-7.45); ABG PO2 53 mmHg (85-104); ABG TCO2 44 mEq/L (20-26); Blood Gas Modality ASSIST CONTROL; Blood Gas VT 500 cc
[2021-04-07] MEDS ORDERED: *HR* Dextrose 50 % in Water (Vial) 50 ML VIAL IVP PRN (06:34)
[2021-04-07] MEDS ORDERED: Dextrose Gel 15 GM/37.5 ML TUBE PO PRN ×2 (06:34)
[2021-04-07] MEDS ORDERED: D5% in Water 1,000 ML IVC PRN (06:34)
[2021-04-07] MEDS: Budesonide/Formoterol 160/4.5 1 PUFF INH IH SCH ×2 (07:53→20:37)
[2021-04-07] MEDS: Metoprolol XL (24 HR) Succ 50 MG TAB.ER.24H PO SCH ×2 (09:05→20:08)
[2021-04-07] MEDS: Pregabalin 75 MG CAPSULE PO SCH ×3 (09:06→20:08)
[2021-04-07] MEDS: *HR* Amiodarone 200 MG TABLET PO SCH (09:06)
[2021-04-07] MEDS: Insulin DETEMIR 100 UNIT/ML X5UNITS SUBQ SCH ×2 (09:15→20:47)
[2021-04-07] MEDS: Midazolam HCl 50 MG/100 ML IV.SOLN IVC SCH ×3 (11:26→21:25)
[2021-04-07] MEDS: Insulin LISPRO 300 UNITS/3 ML VIAL SUBQ SCH ×2 (12:29→18:18)
[2021-04-07] MEDS: levoFLOXacin 750 MG/150 ML 750 MG/150 ML BAG IVPB SCH (16:12)
[2021-04-07] MEDS ORDERED: 0.9 % Sodium Chloride 1,000 ML ONE ×2 (20:40→20:54)
[2021-04-07] MEDS: Remdesivir 100 MG in 0.9 % Sodium Chloride 100 ML IVPB SCH (22:53)
[2021-04-08] MEDS: Cisatracurium 200 MG in 0.9 % Sodium Chloride 180 ML IVC SCH ×5 (01:04→19:35)
[2021-04-08] MEDS: Insulin LISPRO 300 UNITS/3 ML VIAL SUBQ SCH ×4 (01:12→18:49)
[2021-04-08] MEDS: Dexmedetomidine HCl 400 MCG/100 ML MLS IVC SCH ×4 (02:58→19:07)
[2021-04-08] MEDS: Ipratropium 1 PUFF INHALER IH SCH ×4 (03:52→21:53)
[2021-04-08 05:23] LABS: ABG Base Excess 11 mEq/L (-2 to 3); ABG HCO3 42 mEq/L (21-27); ABG Oxygen Saturation 89 % (95-98); ABG PCO2 84 mmHg (35-45); ABG PH 7.31 pH Units (7.32-7.45); ABG PO2 67 mmHg (85-104); ABG TCO2 44 mEq/L (20-26); Blood Gas VT 500 cc
[2021-04-08 05:57] LABS: Basophils % 0.2 %; Hematocrit 43.1 % (37.5-50.1); Hemoglobin 13.3 g/dL (12.9-16.9); Immature Granulocytes % 0.5 % (0-4); Lymphocytes # 0.5 K/mcL (0.6-4.6); Lymphocytes % 11.3 %; Mean Corpuscular HGB Conc 30.9 g/dL (31.6-35.5); Mean Corpuscular Hemoglobin 31.1 pg (28.0-33.3); Mean Corpuscular Volume 100.9 fL (83.0-100.0); Mean Platelet Volume 11.6 fL (9.4-12.4); Monocytes # 0.3 K/mcL (0.0-1.3); Neutrophils # 3.4 K/mcL (1.6-8.9); Platelet Count 209 K/mcL (140-400); Red Blood Count 4.27 M/mcL (4.19-5.50); Red Cell Distribution Width 13.2 % (11.5-14.5); White Blood Count 4.2 K/mcL (4.3-11.1)
[2021-04-08] MEDS: FentaNYL (PF) 1,000 MCG/100 ML IV.SOLN IVC SCH (06:34)
[2021-04-08] MEDS: Midazolam HCl 50 MG/100 ML IV.SOLN IVC SCH ×2 (07:40→19:06)
[2021-04-08] MEDS: Budesonide/Formoterol 160/4.5 1 PUFF INH IH SCH ×2 (08:27→21:53)
[2021-04-08 09:04] LABS: Alanine Aminotransferase 15 Units/L (7-52); Albumin 2.8 g/dL (3.5-5.7); Albumin/Globulin Ratio 0.9 (1.1-2.2); Alkaline Phosphatase 48 Units/L (34-104); Aspartate Amino Transferase 17 Units/L (13-39); BUN/Creatinine Ratio 33 (6-26); Bilirubin,Direct 0.1 mg/dL (0.0-0.2); Bilirubin,Indirect 0.2 mg/dL (0.0-1.0); Bilirubin,Total 0.3 mg/dL (0.3-1.0); Blood Urea Nitrogen 33 mg/dL (6-20); Calcium 7.5 mg/dL (8.6-10.3); Carbon Dioxide 36 mEq/L (23-29); Chloride 97 mEq/L (98-107); Globulin 3.1 g/dL (2.4-3.5); Glucose 257 mg/dL (70-105); Magnesium 2.1 mg/dL (1.6-2.6); Osmolality,Calculated 308 (280-300); Potassium 4.8 mEq/L (3.5-5.1); Sodium 141 mEq/L (136-145); Total Protein 5.9 g/dL (6.4-8.9); eGFR For African Americans > 60 (> 60); eGFR For Non-African Americans > 60 (> 60)
[2021-04-08] MEDS: Heparin 25,000UNIT/250ML 1/2NS 25,000 UNIT/250 ML IV.SOLN IVC SCH ×3 (09:11→22:00)
[2021-04-08] MEDS: Pregabalin 75 MG CAPSULE PO SCH ×3 (09:24→21:57)
[2021-04-08] MEDS: Metoprolol XL (24 HR) Succ 50 MG TAB.ER.24H PO SCH ×2 (09:24→21:57)
[2021-04-08] MEDS: Aspirin 81 MG TAB.CHEW GTUBE SCH (09:24)
[2021-04-08] MEDS: *HR* Amiodarone 200 MG TABLET PO SCH (09:24)
[2021-04-08] MEDS: Insulin DETEMIR 100 UNIT/ML X5UNITS SUBQ SCH ×2 (09:25→22:00)
[2021-04-08] MEDS: levoFLOXacin 750 MG/150 ML 750 MG/150 ML BAG IVPB SCH (15:21)
[2021-04-09] MEDS: Cisatracurium 200 MG in 0.9 % Sodium Chloride 180 ML IVC SCH ×4 (00:01→12:23)
[2021-04-09] MEDS: Insulin LISPRO 300 UNITS/3 ML VIAL SUBQ SCH ×4 (00:15→18:22)
[2021-04-09] MEDS: FentaNYL (PF) 1,000 MCG/100 ML IV.SOLN IVC SCH ×4 (02:07→23:19)
[2021-04-09] MEDS ORDERED: Acetaminophen IV 500 MG/50 ML BAG IVPB ONE (03:45)
[2021-04-09] MEDS: Ipratropium 1 PUFF INHALER IH SCH ×4 (03:54→20:44)
[2021-04-09 04:59] LABS: ABG Base Excess 13 mEq/L (-2 to 3); ABG HCO3 43 mEq/L (21-27); ABG Oxygen Saturation 93 % (95-98); ABG PCO2 78 mmHg (35-45); ABG PH 7.35 pH Units (7.32-7.45); ABG PO2 75 mmHg (85-104); ABG TCO2 45 mEq/L (20-26); Blood Gas Modality ASSIST CONTROL; Blood Gas VT 500 cc
[2021-04-09] MEDS: Dexmedetomidine HCl 400 MCG/100 ML MLS IVC SCH ×6 (05:20→23:37)
[2021-04-09] MEDS: Midazolam HCl 50 MG/100 ML IV.SOLN IVC SCH ×3 (05:27→23:21)
[2021-04-09] MEDS: Heparin 25,000UNIT/250ML 1/2NS 25,000 UNIT/250 ML IV.SOLN IVC SCH ×2 (07:16→17:32)
[2021-04-09] MEDS: Budesonide/Formoterol 160/4.5 1 PUFF INH IH SCH ×2 (07:55→20:44)
[2021-04-09] MEDS: *HR* Amiodarone 200 MG TABLET PO SCH (08:49)
[2021-04-09] MEDS: Aspirin 81 MG TAB.CHEW GTUBE SCH (08:49)
[2021-04-09] MEDS: Pregabalin 75 MG CAPSULE PO SCH ×3 (08:49→21:19)
[2021-04-09] MEDS: Metoprolol XL (24 HR) Succ 50 MG TAB.ER.24H PO SCH (08:50)
[2021-04-09] MEDS: Insulin DETEMIR 100 UNIT/ML X5UNITS SUBQ SCH ×2 (08:52→20:46)
[2021-04-09 12:58] LABS: BUN/Creatinine Ratio 34 (6-26); Blood Urea Nitrogen 31 mg/dL (6-20); Calcium 7.4 mg/dL (8.6-10.3); Carbon Dioxide 38 mEq/L (23-29); Chloride 100 mEq/L (98-107); Glucose 194 mg/dL (70-105); Magnesium 2.1 mg/dL (1.6-2.6); Osmolality,Calculated 306 (280-300); Phosphorous 3.3 mg/dL (2.7-4.5); Potassium 5.1 mEq/L (3.5-5.1); Sodium 142 mEq/L (136-145); eGFR For African Americans > 60 (> 60); eGFR For Non-African Americans > 60 (> 60)
[2021-04-09] MEDS ORDERED: D10% in Water 500 ML IVC PRN (13:23)
[2021-04-09] MEDS: levoFLOXacin 750 MG/150 ML 750 MG/150 ML BAG IVPB SCH (14:27)
[2021-04-09] MEDS: Cisatracurium 400 MG in 0.9 % Sodium Chloride 360 ML IVC SCH (15:16)
[2021-04-09] MEDS: *HR* Metoprolol 5 MG/5 ML VIAL IVP SCH ×2 (15:32→20:46)
[2021-04-09] MEDS ORDERED: Clinimix E 5%-15% SOLUTION 2,000 ML with MVI, adult with vitamin K 10 ML IVC SCH (17:00)
[2021-04-10 03:14] LABS: BUN/Creatinine Ratio 28 (6-26); Blood Urea Nitrogen 28 mg/dL (6-20); Calcium 6.9 mg/dL (8.6-10.3); Carbon Dioxide 36 mEq/L (23-29); Chloride 98 mEq/L (98-107); Glucose 362 mg/dL (70-105); Osmolality,Calculated 308 (280-300); Phosphorous 3.3 mg/dL (2.7-4.5); Potassium 5.1 mEq/L (3.5-5.1); Sodium 139 mEq/L (136-145); eGFR For African Americans > 60 (> 60); eGFR For Non-African Americans > 60 (> 60)
[2021-04-10] MEDS: Ipratropium 1 PUFF INHALER IH SCH ×4 (03:50→20:02)
[2021-04-10] MEDS: Insulin LISPRO 300 UNITS/3 ML VIAL SUBQ SCH ×4 (04:08→20:54)
[2021-04-10] MEDS: Dexmedetomidine HCl 400 MCG/100 ML MLS IVC SCH ×4 (04:21→11:10)
[2021-04-10] MEDS: Heparin 25,000UNIT/250ML 1/2NS 25,000 UNIT/250 ML IV.SOLN IVC SCH ×2 (04:23→17:50)
[2021-04-10 04:25] LABS: ABG Base Excess 10 mEq/L (-2 to 3); ABG HCO3 41 mEq/L (21-27); ABG Oxygen Saturation 70 % (95-98); ABG PCO2 87 mmHg (35-45); ABG PH 7.28 pH Units (7.32-7.45); ABG PO2 44 mmHg (85-104); ABG TCO2 43 mEq/L (20-26); Blood Gas Modality ACVC
[2021-04-10] MEDS: *HR* Metoprolol 5 MG/5 ML VIAL IVP SCH ×3 (05:37→17:16)
[2021-04-10] MEDS: FentaNYL (PF) 1,000 MCG/100 ML IV.SOLN IVC SCH ×3 (06:50→20:53)
[2021-04-10] MEDS: Aspirin 81 MG TAB.CHEW GTUBE SCH (07:20)
[2021-04-10] MEDS: *HR* Amiodarone 200 MG TABLET PO SCH (07:20)
[2021-04-10] MEDS: Pregabalin 75 MG CAPSULE PO SCH ×3 (07:21→20:54)
[2021-04-10] MEDS: Insulin DETEMIR 100 UNIT/ML X5UNITS SUBQ SCH ×2 (07:33→20:54)
[2021-04-10] MEDS: Cisatracurium 400 MG in 0.9 % Sodium Chloride 360 ML IVC SCH (10:18)
[2021-04-10] MEDS: Budesonide/Formoterol 160/4.5 1 PUFF INH IH SCH ×2 (11:02→20:01)
[2021-04-10] MEDS ORDERED: *HR* LORazepam 2 MG/ML VIAL IVP PRN (12:54)
[2021-04-10] MEDS ORDERED: *HR* FentaNYL (PF) 100 MCG/2 ML VIAL IVP PRN (12:54)
[2021-04-10] MEDS ORDERED: FentaNYL (PF) 1,000 MCG/100 ML IV.SOLN IVC SCH (13:00)
[2021-04-10] MEDS: levoFLOXacin 750 MG/150 ML 750 MG/150 ML BAG IVPB SCH (17:50)
[2021-04-10] MEDS ORDERED: *HR* Heparin 5,000 UNIT/ML VIAL IVP PRN ×2 (17:56)
[2021-04-10] MEDS ORDERED: Heparin 25,000UNIT/250ML 1/2NS 25,000 UNIT/250 ML IV.SOLN IVC SCH (18:00)
[2021-04-10 19:03] LABS: Hematocrit 48.5 % (37.5-50.1); Hemoglobin 14.5 g/dL (12.9-16.9); Mean Corpuscular HGB Conc 29.9 g/dL (31.6-35.5); Mean Corpuscular Volume 103.6 fL (83.0-100.0); Mean Platelet Volume 10.8 fL (9.4-12.4); Platelet Count 276 K/mcL (140-400); Red Blood Count 4.68 M/mcL (4.19-5.50); Red Cell Distribution Width 13.4 % (11.5-14.5)
[2021-04-10 19:19] LABS: INR 1.1; Prothrombin Time 11.8 Seconds (9.4-12.1)
[2021-04-10 19:21] LABS: Heparin anti-factor XA UFH < 0.04 IU/mL (0.30-0.70)
[2021-04-10 20:39] VITALS: TEMP 100.4
[2021-04-10 21:13] VITALS: BP 125/63; PULSE 134; O2SAT 81
[2021-04-11] MEDS ORDERED: levoFLOXacin 750 MG/150 ML 750 MG/150 ML BAG IVPB SCH (09:00)
== END 2021-04-10 22:20 | disposition expired | DRG 130 ==
LOC: EMEROOARM 17:31 → 3NENU 23:47 → SUATTDRO 23:47 → 3NENU 04-04 01:28 → 2NNU 04-06 16:39 → ICNU 04-10 19:40
PROVIDERS: ADMIT Student in an Organized Health Care Education/Training Program; ATTEND Family Medicine